=== PATIENT | male | born 1965 | race Caucasian/White ===

== ENCOUNTER 2020-08-31 07:25 | Outpatient (REF) | payer BC, SELFPAY ==
[2020-08-31 08:21] LABS: MANUAL DIFF FLAG NO
[2020-08-31 08:31] LABS: Basophils Percent Auto 0.4 % (0-2); Eosinophils Absolute Auto 0.3 X10*3/uL (0.0-0.4); Eosinophils Percent Auto 4.9 % (0-4); Hematocrit 47.1 % (42-52); Hemoglobin 15.7 g/dl (14.0-18.0); Imm Gran Abs Auto 0.04 X10*3/uL (0.00-0.03); Imm Gran Pct Auto 0.6 % (0.0-0.4); Lymphocytes Absolute Auto 1.7 X10*3/uL (1.2-4.9); Lymphocytes Percent Auto 24.9 % (20-40); Mean Corpuscular HGB Conc 33.3 g/dl (31.0-36.0); Mean Corpuscular Hemoglobin 28.2 pg (27.0-33.0); Mean Corpuscular Volume 84.7 fL (80-98); Mean Platelet Volume 8.7 fL (9.4-12.4); Monocytes Absolute Auto 0.6 X10*3/uL (0.1-1.2); Neutrophils Absolute Auto 4.2 X10*3/uL (2.0-8.3); Neutrophils Percent Auto 60.2 % (45-73); Platelet Count 286 X10*3/uL (160-400); Red Blood Count 5.56 X10*6/uL (4.60-5.80); Red Cell Distribution Width 12.4 % (11.0-16.0)
[2020-08-31 08:41] LABS: Glucose Urine UA NEG (NEG); Leukocyte Esterase Urine NEG (NEG); Nitrite Urine NEG (NEG); PH 5.5 (5.0-8.0); Specific Gravity - Urine 1.025 (1.005-1.025); Urine Blood TRACE (NEG); Urine Ketones NEG (NEG); Urine Protein NEG (NEG-TRACE)
[2020-08-31 08:45] LABS: Appearance Urine CLEAR; Color Urine YELLOW
[2020-08-31 08:53] LABS: RBC Urine 0-2 /HPF (0); WBC Urine 0 /HPF (0-4)
[2020-08-31 08:54] LABS: Mucus Urine TRACE /LPF; Squamous Epithelial Cell Urine TRACE /LPF
[2020-08-31 09:06] LABS: Alanine Aminotransferase 26 U/L (0-40); Alkaline Phosphatase 56 U/L (39-117); Anion Gap 11 (12-20); Aspartate Amino Transferase 17 U/L (5-37); Bilirubin Total 0.7 mg/dL (0.0-1.0); Blood Urea Nitrogen 17 mg/dL (9-16); Calcium 8.6 mg/dL (8.4-10.2); Carbon Dioxide 29 mmol/L (22-29); Chloride 103 mmol/L (96-108); Cholesterol 169 mg/dL; Estimated Glomerular Filt Rate > 60; Glucose Fasting 106 mg/dL (60-99); HDL Cholesterol 39 mg/dL; LDL Cholesterol Calculated 108 mg/dl; Potassium 4.7 mmol/L (3.3-5.1); Sodium 138 mmol/L (135-145); Total Protein 6.8 g/dL (6.5-8.0); Triglycerides 114 mg/dL
[2020-08-31 09:42] LABS: Prostate Specific Antigen Scr 1.69 ng/mL (<0.05-4.0)
== END 2020-08-31 07:26 | disposition home or self-care (01) ==
LOC: HO.LAB 07:25
PROVIDERS: PCP Internal Medicine; Visit Provider Internal Medicine
DX: Z00.00 Encounter for general adult medical examination without abnormal findings (principal); I10 Essential (primary) hypertension; E78.6 Lipoprotein deficiency
CPT/HCPCS: 36415; 80053; 80061; 81001; 84153; 85025

== ENCOUNTER 2021-09-01 11:29 | Outpatient (REF) | payer BC, SELFPAY ==
[2021-09-01 11:32] LABS: MANUAL DIFF FLAG NO
[2021-09-01 11:55] LABS: Basophils Percent Auto 0.5 % (0-2); Eosinophils Absolute Auto 0.4 X10*3/uL (0.0-0.4); Eosinophils Percent Auto 4.6 % (0-4); Hematocrit 46.9 % (42.0-52.0); Hemoglobin 15.6 g/dl (14.0-18.0); Imm Gran Abs Auto 0.03 X10*3/uL (0.00-0.03); Imm Gran Pct Auto 0.4 % (0.0-0.4); Lymphocytes Absolute Auto 1.9 X10*3/uL (1.2-4.9); Lymphocytes Percent Auto 25.1 % (20-40); Mean Corpuscular HGB Conc 33.3 g/dl (31.0-36.0); Mean Corpuscular Volume 84.2 fL (80.0-98.0); Mean Platelet Volume 9.2 fL (9.4-12.4); Monocytes Absolute Auto 0.6 X10*3/uL (0.1-1.2); Monocytes Percent Auto 7.9 % (2-11); Neutrophils Absolute Auto 4.7 x10*3/uL (2.0-8.3); Neutrophils Percent Auto 61.5 % (45-73); Platelet Count 279 X10*3/uL (160-400); Red Blood Count 5.57 X10*6/uL (4.60-5.80); Red Cell Distribution Width 12.6 % (11.0-16.0); White Blood Count 7.7 X10*3/uL (4.8-10.8)
[2021-09-01 11:56] LABS: Appearance Urine CLEAR; Color Urine YELLOW; Glucose Urine UA NEG (NEG); Leukocyte Esterase Urine NEG (NEG); Nitrite Urine NEG (NEG); Specific Gravity - Urine 1.025 (1.005-1.025); Urine Blood TRACE (NEG); Urine Ketones NEG (NEG); Urine Protein NEG (NEG-TRACE)
[2021-09-01 12:06] LABS: Alanine Aminotransferase 37 U/L (0-40); Albumin Level 4.1 g/dL (3.5-5.0); Alkaline Phosphatase 55 U/L (39-117); Anion Gap 10 (12-20); Aspartate Amino Transferase 19 U/L (5-37); Bilirubin Total 0.6 mg/dL (0.0-1.0); Blood Urea Nitrogen 17 mg/dL (9-16); Calcium 9.2 mg/dL (8.4-10.2); Carbon Dioxide 31 mmol/L (22-29); Chloride 103 mmol/L (96-108); Cholesterol 179 mg/dL; Estimated Glomerular Filt Rate > 60; Glucose Fasting 110 mg/dL (60-99); HDL Cholesterol 34 mg/dL; LDL Cholesterol Calculated 114 mg/dl; Potassium 4.3 mmol/L (3.3-5.1); Sodium 140 mmol/L (135-145); Total Protein 6.9 g/dL (6.5-8.0); Triglycerides 158 mg/dL
[2021-09-01 12:27] LABS: RBC Urine 0-2 /HPF (0); WBC Urine 0 /HPF (0-4)
[2021-09-01 12:57] LABS: PSA,Total (Free>4and<10) 1.97 ng/mL (0.00-4.00)
== END 2021-09-01 11:30 | disposition home or self-care (01) ==
LOC: HO.LNP 11:29
PROVIDERS: PCP Internal Medicine; Visit Provider Internal Medicine
DX: Z00.00 Encounter for general adult medical examination without abnormal findings (principal); Z12.5 Encounter for screening for malignant neoplasm of prostate; E78.6 Lipoprotein deficiency; I10 Essential (primary) hypertension
CPT/HCPCS: 80053; 80061; 81001; 81003; 84153; 85025

== ENCOUNTER 2022-02-24 09:24 | Day surgery (SDC) | payer BC, SELFPAY ==
[2022-02-20 13:59] VITALS: BMI 38.7
--- NOTE | 2022-02-23 10:49 | HO.ANESPROP2 ---
Documented by User: Reyna Hadley NP 02/23/22 10:50 HPI - Anesthesia Eval Consult details Narrative: 57yo M for Colonoscopy PMFSH Active Problems Active Problems: All Active Problems (Updated 02/20/22 @ 13:58 by Jennifer Hart, DALI) Shingles (Acute) Past Medical History Medical History History of COVID-19 HTN (hypertension) Surgical History Surgical History H/O colonoscopy Hx of umbilical hernia repair Social History Social History Advance Directives: No Advance Directives Information Provided: Yes Meds Allergies Allergy/AdvReac Type Severity Reaction Status Date / Time No Known Allergies Allergy Unverified 04/08/20 14:50 Home Medications Medication Instructions Recorded Confirmed Last Taken Type lisinopril 10 mg tablet 10 mg PO DAILY 05/25/20 02/20/22 Unknown History multivitamin 1 tab PO DAILY 02/20/22 02/20/22 Unknown History Exam Exam Date and Time: February 23, 2022 1049 Height,Weight and Vital Signs: Height 5 ft 7 in Weight 112.037 kg Pertinent Lab Results Pertinent Lab Results: Laboratory Tests 09/01/21 09/01/21 07:25 07:25 WBC 7.7 Hgb 15.6 Hct 46.9 Plt Count 279 Sodium 140 Potassium 4.3 Chloride 103 Carbon Dioxide 31 H BUN 17 H Creatinine 1.04 Assessment and Plan Assessment Anesthesia Assessment: Chart Reviewed Documented by User: Jessi Harding MD 02/24/22 11:05 PMFSH Active Problems Active Problems: All Active Problems (Updated 02/20/22 @ 13:58 by Jennifer Hart RN) Shingles (Acute) Snores but not tested for KALINA Past Medical History Medical History History of COVID-19 HTN (hypertension) Family History Family history of problems with anesthesia: No Surgical History Surgical History H/O colonoscopy Hx of umbilical hernia repair History of Problems with Anesthesia: No Social History Social History Advance Directives: No Advance Directives Information Provided: Yes Meds Allergies Allergy/AdvReac Type Severity Reaction Status Date / Time No Known Allergies Allergy Unverified 04/08/20 14:50 Home Medications Medication Instructions Recorded Confirmed Last Taken Type lisinopril 10 mg tablet 10 mg PO DAILY 05/25/20 02/20/22 Unknown History multivitamin 1 tab PO DAILY 02/20/22 02/20/22 Unknown History Exam Height,Weight and Vital Signs: Height 5 ft 7 in Weight 112.037 kg Vital Signs Temp Pulse Resp BP Pulse Ox O2 Del Method 02/24/22 10:59 98.7 F 69 18 139/88 97 Room Air Airway Mallampati Class: III TM Dist: >3cm Neck ROM: Full (Increased neck circumference) Loose/Missing/Broken Teeth: No (Per patient ) Heart: RRR Lungs: CTAB Assessment and Plan Assessment Anesthesia Assessment: Anesthesia Plan Discussed Final Anesthetic Review Family History of Problems with Anesthesia: No History of Problems with Anesthesia: No NPO: Yes ASA Class: II Final Preanesthetic Review: No Changes in Pt Med Stat, Meds/Allgs Chart Reviewed, Consent Obtained/Reviewed and Anes Risks/Benef Reviewed Patient Risk: Intermediate Procedure Risk: Low Assessment/Block/Sedation in SS: Assess/Block/Sedation-SS Anesthetic Plan Anesthetic Plan: MAC: Disposition: Standard PACU
[2022-02-24 10:54] VITALS: BMI 37.5
[2022-02-24 10:59] VITALS: BP 139/88; PULSE 69; RESP 18; TEMP 37.1; O2SAT 97
[2022-02-24] MEDS: Lactated Ringers 1,000 ML 100 ML IVCONT (10:59)
--- NOTE | 2022-02-24 11:40 | PM.OP ---
Brief Operative Note Date of Service: 02/24/22 Pre-op diagnosis: Screening Post-op diagnosis: other (Diverticulosis) Procedure: Colonoscopy to the cecum and TI Surgeon: Herman Brooke Anesthesia: MAC Was an [place] Department Supervisor used for this Procedure?: No Estimated blood loss (mL): 0 Pathology: none sent Condition: stable Disposition: PACU
[2022-02-24 11:46] VITALS: BP 78/38; PULSE 107; RESP 14; TEMP 37.1; O2SAT 95
[2022-02-24 11:49] VITALS: BP 91/50
[2022-02-24 12:01] VITALS: BP 109/65; PULSE 89; RESP 14; O2SAT 95
[2022-02-24 12:16] VITALS: BP 114/73; PULSE 74; RESP 18; O2SAT 97
[2022-02-24 12:31] VITALS: BP 115/77; PULSE 74; RESP 18; TEMP 36.7; O2SAT 96
--- NOTE | 2022-02-24 23:56 | OP_ITS ---
SURGEON: Herman Brooke MD INDICATIONS: The patient presents for evaluation of personal history of tubular adenoma of the colon, and colorectal cancer screening. Full consent obtained from him for this, including risks of bleeding and perforation. PREOPERATIVE DIAGNOSIS: Personal history of tubular adenoma of the colon and colorectal cancer screening. POSTOPERATIVE DIAGNOSIS: Personal history of tubular adenoma of the colon and colorectal cancer screening, sigmoid diverticulosis, and internal hemorrhoids. PROCEDURE PERFORMED: Colonoscopy to the cecum and terminal ileum. ESTIMATED BLOOD LOSS: COMPLICATIONS: ANESTHESIA: Preop medication used; monitored anesthesia care. ASSISTANTS: SPECIMENS: DESCRIPTION OF PROCEDURE: The patient was placed in the left lateral decubitus position. The digital rectal exam revealed no abnormalities. The Olympus videopediatric colonoscope was entered into the rectum and advanced easily to the cecum. Once in the cecum, I did identify normal-appearing cecal pouch with appendiceal orifice and a normal-appearing ileocecal valve. The terminal ileum was cannulated and appeared normal. The scope was withdrawn back in the colon. The entire cecum and ileocecal valve appeared normal. The scope was slowly withdrawn assessing all mucosal surfaces carefully. Preparation was excellent. I did not visualize any sign of polyps, colitis, or angiodysplasia. There was a mild amount of sigmoid diverticulosis. In the rectum, scope was retroflexed visualizing internal hemorrhoids, but no other pathology. The rectal mucosa appeared normal. The scope was straightened and withdrawn from the patient. He tolerated the procedure well and was returned to recovery area in stable condition. IMPRESSION: 1. Sigmoid diverticulosis 2. Internal hemorrhoids. PLAN: I would recommend a repeat colonoscopy in 5 years for further screening. He will otherwise see me on a p.r.n. basis. MD GURINDER Bobby/BETTYE / [id number] JULIÁN
== END 2022-02-24 13:30 | disposition home or self-care (01) ==
PROVIDERS: PCP Internal Medicine; Visit Provider Internal Medicine
PROC: 0DJD8ZZ Inspection of Lower Intestinal Tract, Via Natural or Artificial Opening Endoscopic (ICD-10-PCS; CPT 45378; principal; 2022-02-24 10:40)
DX: Z12.11 Encounter for screening for malignant neoplasm of colon (principal); Z86.010 Personal history of colon polyps; K57.30 Diverticulosis of large intestine without perforation or abscess without bleeding; K64.8 Other hemorrhoids; I10 Essential (primary) hypertension; Z79.899 Other long term (current) drug therapy; Z86.16 Personal history of COVID-19
CPT/HCPCS: 45378; J2765

== ENCOUNTER 2022-06-08 05:53 | Day surgery (SDC) | payer BC, SELFPAY ==
[2022-06-01 10:36] VITALS: BMI 39.6
--- NOTE | 2022-06-07 11:56 | HO.ANESPROP2 ---
Documented by User: Reyna Hadley NP 06/07/22 11:56 HPI - Anesthesia Eval Consult details Narrative: 57yo M for Excision Lipoma of back X2 PMFSH Active Problems Active Problems: All Active Problems (Updated 03/31/22 @ 15:01 by Rick Miller MD) Shingles (Acute) Lipoma of back (Acute) HTN (hypertension) (Acute) Past Medical History Medical History (Updated 03/31/22 @ 15:01 by Rick Miller MD) History of COVID-19 HTN (hypertension) Family History Family history of problems with anesthesia: No Surgical History Surgical History (Updated 06/01/22 @ 09:07 by Jennifer Hart RN) H/O colonoscopy Hx of umbilical hernia repair History of Problems with Anesthesia: No Social History Social History Patient Tobacco Use Status: Never used Tobacco Use of substances other than those prescribed or required for medical reasons: No Are you DNR?: No Advance Directives: No Advance Directives Information Provided: Yes (brochure mailed) Advance Directives on File: No Meds Allergies Allergy/AdvReac Type Severity Reaction Status Date / Time No Known Allergies Allergy Unverified 03/31/22 14:35 Home Medications Medication Instructions Recorded Confirmed Last Taken Type lisinopril 10 mg tablet 10 mg PO DAILY 05/25/20 06/01/22 02/24/22 06:00 History multivitamin 1 tab PO DAILY 02/20/22 06/01/22 Unknown History Exam Exam Date and Time: June 07, 2022 1156 Height,Weight and Vital Signs: Height 5 ft 7 in Weight 114.759 kg Assessment and Plan Assessment Anesthesia Assessment: Chart Reviewed Final Anesthetic Review Family History of Problems with Anesthesia: No History of Problems with Anesthesia: No Documented by User: Xavi Malin MD 06/08/22 07:21 PMFSH Past Medical History Medical History (Updated 03/31/22 @ 15:01 by Rick Miller MD) History of COVID-19 HTN (hypertension) Family History Family history of problems with anesthesia: No Surgical History Surgical History (Updated 06/01/22 @ 09:07 by Jennifer Hart RN) H/O colonoscopy Hx of umbilical hernia repair History of Problems with Anesthesia: No Social History Social History Patient Tobacco Use Status: Never used Tobacco Use of substances other than those prescribed or required for medical reasons: No Are you DNR?: No Advance Directives: No Advance Directives Information Provided: Yes (brochure mailed) Advance Directives on File: No Meds Allergies Allergy/AdvReac Type Severity Reaction Status Date / Time No Known Allergies Allergy Unverified 03/31/22 14:35 Home Medications Medication Instructions Recorded Confirmed Last Taken Type lisinopril 10 mg tablet 10 mg PO DAILY 05/25/20 06/01/22 02/24/22 06:00 History multivitamin 1 tab PO DAILY 02/20/22 06/01/22 Unknown History Exam Airway Mallampati Class: III TM Dist: >3cm Neck ROM: Full Loose/Missing/Broken Teeth: No Heart: ok Lungs: ok Assessment and Plan Final Anesthetic Review Family History of Problems with Anesthesia: No History of Problems with Anesthesia: No NPO: Yes ASA Class: II Final Preanesthetic Review: No Changes in Pt Med Stat, Meds/Allgs Chart Reviewed, Consent Obtained/Reviewed and Anes Risks/Benef Reviewed Patient Risk: Intermediate Procedure Risk: Intermediate Anesthetic Plan Anesthetic Plan: GA and Agree w/ Assess. and Plan Disposition: Standard PACU
[2022-06-08 06:12] VITALS: BP 143/80; PULSE 80; RESP 18; TEMP 36.6; O2SAT 98; BMI 37.5
[2022-06-08] MEDS: Lactated Ringers 1,000 ML 100 ML IVCONT (06:34)
--- NOTE | 2022-06-08 07:24 | MHC.SHP ---
Pre-Procedural Eval Section A Date of Service: 06/08/22 The patient is an INPATIENT: No The History & Physical has been completed within 30 days and I have reviewed it.: No Section B Chief Complaint: lipoma Details of Present Illness: Was seen just over a month ago in the office with symmetric lipoma in the trapezius region that are symptomatic when exerting himself. He is interested in excision. He denies interval change including health conditions and medications. Relevant Family History (Specify if Yes): No Relevant Social History: None Present Medications: see Short Stay Collaborative assessment Medical History: No relevant PMH History of Previous Operations: No relevant previous surgery Allergies: Allergies Allergy/AdvReac Type Severity Reaction Status Date / Time No Known Allergies Allergy Unverified 03/31/22 14:35 Review of Systems Sugical H&P ROS: Negative: Constitution, Cardiovascular, Respiratory, Neurological, Psychiatric, Hem-Onc, Allergic/Immunologic, Gastrointestinal, Genitourinary, Musculoskeletal, Integumentary, Endocrine and Eyes/Ears/Nose/Throat Exam Surgical H&P Exam: Normal: HEENT, Normal: Heart, Normal: Lungs, Normal: Extremities, Normal: Abdomen and Normal: Neurological and Not Evaluated: Skin (Two symmetric lipoma in the trapezius area) Plan Diagnosis/Plan: Unchanged I have reviewed the history and physical and performed a pertinent physical examination on my patient. No changes have occurred unless specified. Risks including bleeding, infection, scar formation, activity restrictions were all discussed with the patient and consent obtained. His questions seemed to be satisfactorily answered
--- NOTE | 2022-06-08 07:29 | W.PM.OPN ---
Operative Note Operative Note Date of Service: 06/08/22 Narrative: Preop diagnosis: [Symptomatic lipoma x2, upper back, 5 x 6 cm] Postop diagnosis: [Same: Left intramuscular lipoma in the trapezius measuring 4 x 5 cm; right superficial lipoma measuring 5 x 5 cm] Procedure: [Excision of lipoma with intermediate closure of 6 cm incision on the patient's left; intermediate closure of 6 cm incision on the patient's right] Surgeon: Rick Miller MD Assist: [none] Anesthesia: [MAC; Lidocaine, 1% / Ropivicaine, 0.5% with epi] Estimated blood loss: [3cc] Specimen: [2 lipomas] Intraoperative findings: [The left lipoma was intramuscular in the trapezius; the right lipoma was subcutaneous.] Indications: [The patient is a 57-year-old gentleman with 2 lipoma on his back that are becoming more symptomatic with exercise and sleep, consequently we discussed removal with the inherent risks of bleeding, infection, seroma formation, recurrence and wound complications. I also reviewed activity restrictions and recommendations to minimize postoperative complications. The patient seemed understand his options including continued observation and wanted to proceed.] Procedure: [The patient was identified in the preoperative holding area by myself and the operative sites marked and confirmed with the patient. 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 Is brought into or room 3 and placed prone on the table with MAC administered with excellent effect. His back was then widely prepped and draped using chlorhexidine. An appropriate time-out was performed confirming excision of both a left upper back and right upper back lipoma. Local was infiltrated into the skin and subcutaneous tissues with excellent effect. I began on the patient's left side and after making a 6 cm incision and dissected down through subcutaneous fat and was not able to demonstrate a lipoma. Given this, the trapezius fascia was opened and a very obvious large lipoma circumferentially dissected and removed from the muscle. It was sent for permanent section and the operative field was inspected for hemostasis. The muscle was approximated for hemostasis reasons and to close the defect then the overlying fascia was closed with 2-0 Polysorb sutures. Intermediate closure using interrupted 3-0 Polysorb was performed and the skin closed with 4-0 Monocryl subcuticular sutures. Dissection was then addressed to the patient's right upper back. After confirming continued affect of local anesthetic, a 6 cm incision was made sharply in and getting into the subcutaneous tissues, a large lipomatous mass was encountered and circumferentially dissected. Given the lack of symmetry regarding the patient's left sub fascial lipoma and this 1 being superficial, I open the fascia to be sure there was not a deep lipoma and did not encounter 1. Given this, the fascia was closed and an intermediate closure using 2 0 Polysorb on the deeper subcutaneous tissues and deep dermal layer and 4-0 Monocryl subcuticular was used to close the incision. The area was then washed and dried, Mastisol, Steri-Strips and dressings applied. Patient tolerated the procedure well and was sent to the recovery in stable condition. All sponge instrument counts were correct x2. At the patient's request I called his [id number], Melina, at [phone] and advised her of the operation, activity restrictions, incision care and pain management. Her questions seemed to be satisfactorily answered.]
[2022-06-08 08:57] VITALS: BP 96/54; PULSE 92; RESP 18; TEMP 36.8; O2SAT 92
[2022-06-08 09:12] VITALS: BP 99/60; PULSE 80; RESP 18; TEMP 36.3; O2SAT 96
[2022-06-08 09:23] VITALS: BP 109/73; PULSE 80; RESP 18; TEMP 36.3; O2SAT 96
== END 2022-06-08 09:45 | disposition home or self-care (01) ==
LOC: HO.SSS 05:54
PROVIDERS: PCP Internal Medicine; Visit Provider Surgery
PROC: (CPT 21932; principal; 2022-06-08 07:30)
DX: D17.1 Benign lipomatous neoplasm of skin and subcutaneous tissue of trunk (principal); I10 Essential (primary) hypertension; Z79.899 Other long term (current) drug therapy; Z86.16 Personal history of COVID-19
CPT/HCPCS: 21932; 21931; 88304; J0690; J2250; J2795; J3010

== ENCOUNTER 2022-09-05 11:27 | Outpatient (REF) | payer BC, SELFPAY ==
[2022-09-05 11:30] LABS: MANUAL DIFF FLAG NO
[2022-09-05 11:54] LABS: Appearance Urine Clear; Basophils Percent Auto 0.5 % (0-2); Color Urine Yellow; Eosinophils Absolute Auto 0.4 X10*3/uL (0.0-0.4); Eosinophils Percent Auto 4.2 % (0-4); Glucose Urine UA Negative (Negative); Hematocrit 46.9 % (42.0-52.0); Hemoglobin 15.8 g/dl (14.0-18.0); Imm Gran Abs Auto 0.03 X10*3/uL (0.00-0.03); Imm Gran Pct Auto 0.4 % (0.0-0.4); Leukocyte Esterase Urine Negative (Negative); Lymphocytes Absolute Auto 2.3 X10*3/uL (1.2-4.9); Lymphocytes Percent Auto 27.3 % (20-40); Mean Corpuscular HGB Conc 33.7 g/dl (31.0-36.0); Mean Corpuscular Hemoglobin 28.3 pg (27.0-33.0); Mean Corpuscular Volume 83.9 fL (80.0-98.0); Mean Platelet Volume 9.1 fL (9.4-12.4); Monocytes Absolute Auto 0.7 X10*3/uL (0.1-1.2); Monocytes Percent Auto 8.5 % (2-11); Neutrophils Percent Auto 59.1 % (45-73); Nitrite Urine Negative (Negative); PH 5.5 (5.0-9.0); Platelet Count 327 X10*3/uL (160-400); Red Blood Count 5.59 X10*6/uL (4.60-5.80); Red Cell Distribution Width 12.7 % (11.0-16.0); Urine Blood Negative (Negative); Urine Ketones Negative (Negative); Urine Protein Negative (Neg-Trace); White Blood Count 8.4 X10*3/uL (4.8-10.8)
[2022-09-05 11:57] LABS: Bacteria Urine None Seen (None Seen); Hyaline Casts Urine 0-2 /LPF (0-2); RBC Urine 0-2 /HPF (0-2); Squamous Epithelial Cell Urine 0-2 /HPF (0-2); WBC Urine 0-5 /HPF (0-5)
[2022-09-05 12:50] LABS: Alanine Aminotransferase 41 U/L (0-40); Albumin Level 3.9 g/dL (3.5-5.0); Alkaline Phosphatase 55 U/L (39-117); Anion Gap 14 (12-20); Aspartate Amino Transferase 23 U/L (5-37); Bilirubin Total 0.7 mg/dL (0.0-1.0); Blood Urea Nitrogen 18 mg/dL (9-16); Calcium 8.9 mg/dL (8.4-10.2); Carbon Dioxide 28 mmol/L (22-29); Chloride 101 mmol/L (96-108); Cholesterol 185 mg/dL; Estimated Glomerular Filt Rate > 60; Glucose Fasting 127 mg/dL (60-99); HDL Cholesterol 35 mg/dL; LDL Cholesterol Calculated 115 mg/dl; Potassium 4.3 mmol/L (3.3-5.1); Sodium 139 mmol/L (135-145); Total Protein 6.4 g/dL (6.5-8.0); Triglycerides 177 mg/dL
[2022-09-05 13:08] LABS: PSA,Total (Free>4and<10) 2.01 ng/mL (0.00-4.00)
== END 2022-09-05 11:28 | disposition home or self-care (01) ==
LOC: HO.LNP 11:27
PROVIDERS: Visit Provider Internal Medicine
DX: Z00.00 Encounter for general adult medical examination without abnormal findings (principal); Z12.5 Encounter for screening for malignant neoplasm of prostate; I10 Essential (primary) hypertension; E78.6 Lipoprotein deficiency
CPT/HCPCS: 80053; 80061; 81001; 84153; 85025

== ENCOUNTER 2023-02-13 08:22 | Outpatient (AMB) | payer BC, SELFPAY ==
[2023-02-13 08:32] VITALS: BP 136/92; PULSE 80; BMI 38.5
--- NOTE | 2023-02-13 08:32 | A.OFFVIS_ITS ---
Intake Vital Signs 02/13/23 08:32 Height 5 ft 7 in Weight 246 lb BMI 38.5 BP 136/92 H Blood Pressure Location Lt brachial Position Sitting Pulse 80 Intake Visit Reasons: ? recurrent lipoma, pain Intake Note: Patient reports having hernia surgery about 15-20 yrs ago. C/o discomfort, scratchy feeling when moves abdomen side to side. Thinks mesh was recalled. Reports excision on back healed well. Call Center Specialist Required: No Musical Instrument Maker: Musical Instrument Maker offered & declined Accompanied by: Self / Same As Patient Allergies No Known Allergies Allergy (Verified 02/13/23 08:35) Medication List - Last Reconciled 02/13/23 by Rick Miller MD lisinopril 10 mg PO DAILY multivitamin 1 tab PO DAILY HPI HPI Comments History of Present Illness Details The patient is a 58-year-old gentleman known to me from prior lipoma excisions who made an appointment to come in and discuss abdominal pain and a prior umbilical hernia repair done [place] [address] Vazquez. Ventralex, small mesh was secured in place with #1. Novafil sutures according to the operative report. The patient noted that several months later, the patient had some bleeding and a Dr. Graham performed an office procedure to excise sutures or mesh. I do not have access to this record. Patient notes that his weight has fluctuated significantly since this operation and there has been at least a weight gain of 30 lb. He notes that it may have been higher at his heaviest weight in as much as 60 lb. He notes intermittent pain it is umbilicus that is worse with twisting his torso or reaching. He denies the pain waking him up in the middle of the night and it is not necessarily worse with exertion. It does impact on his daily activities and he is concerned, so he made an appointment to be evaluated. [facility] Medical History History of COVID-19 HTN (hypertension) Surgical History (Updated 02/13/23 @ 09:28 by Rick Miller MD) H/O colonoscopy Hx of umbilical hernia repair Social History Alcohol intake: never Patient Tobacco Use Status: Never used Tobacco Review of Systems Const All systems reviewed & are unremarkable except as noted in HPI and below Reports as per HPI Physical Exam Vital Signs: Last Vital Signs Pulse 80 02/13/23 08:32 BP 136/92 H 02/13/23 08:32 BMI result Body Mass Index 38.5 On exam he is nontoxic He is in good spirits He is in no acute respiratory distress His abdomen is overweight with a diastasis recti. I examined the patient both supine and standing and there is no palpable tenderness. The umbilicus has typical distorted configuration after a mesh repair but on Valsalva, I do not appreciate a recurrence and I do not appreciate a local palpable trigger point. Abdomen is otherwise soft with no rebound, rigidity or guarding. Results Reviewed Results Reviewed: I have ordered a CT of the abdomen and pelvis with Valsalva and IV contrast Renal abscess were ordered today, nonfasting Assessment & Plan Assessment & Plan (1) Abdominal pain: Code(s): R10.9 - Unspecified abdominal pain (2) HTN (hypertension): Code(s): I10 - Essential (primary) hypertension (3) Hx of umbilical hernia repair: Comment: X2 (2010) Code(s): Z98.890 - Other specified postprocedural states; Z87.19 - Personal history of other diseases of the digestive system Plan It sounds like the patient is having some pains that could be contributed to by weight gain in the setting of a mesh repair. He is actively participating in a weight loss program at this point and notes that he has lost a significant a mount of weight. He is encouraged to continue to do so. We discussed options to evaluate his symptoms which include continued observation with weight loss and reassessment in the office in 2-3 months; the other option would be a CT with IV contrast to assess his anatomy and see whether not there is a not called recurrence or obvious distortion to explain his symptoms. The inherent risk of hernia recurrence in the setting of weight gain was reviewed with the patient apparently understood. I will see the patient back for 30 minute visit following the CT of the abdomen pelvis with Valsalva and IV contrast. He will contact me before then if he is clinically worsening. Orders: Orders Basic Metabolic Panel Today I10 - Essential (primary) hypertension, R10.9 - Unspecified abdominal pain CT abdomen pelvis w IV con Today R10.9 - Unspecified abdominal pain Coding Level of Care Code Est Pt Level 4 (10411) Diagnoses Abdominal pain R10.9 HTN (hypertension) I10 Hx of umbilical hernia repair Z98.890; Z87.19
== END 2023-02-13 09:01 | disposition home or self-care (01) ==
PROVIDERS: PCP Internal Medicine; Visit Provider Surgery
DX: R10.9 Unspecified abdominal pain (principal); I10 Essential (primary) hypertension; Z98.890 Other specified postprocedural states; Z87.19 Personal history of other diseases of the digestive system
CPT/HCPCS: 99214

== ENCOUNTER 2023-02-13 08:22 | Outpatient (REF) | payer BC, SELFPAY ==
[2023-02-13 10:54] LABS: Anion Gap 9 (12-20); Blood Urea Nitrogen 18 mg/dL (9-16); Calcium 9.3 mg/dL (8.4-10.2); Carbon Dioxide 29 mmol/L (22-29); Chloride 104 mmol/L (96-108); Estimated Glomerular Filt Rate > 60; Glucose Random 110 mg/dL (60-115); Potassium 4.1 mmol/L (3.3-5.1); Sodium 138 mmol/L (135-145)
== END 2023-02-13 08:23 | disposition home or self-care (01) ==
LOC: HO.LAB 08:22
PROVIDERS: PCP Internal Medicine; Visit Provider Surgery
DX: R10.9 Unspecified abdominal pain (principal); I10 Essential (primary) hypertension; Z79.899 Other long term (current) drug therapy; Z98.890 Other specified postprocedural states; Z87.19 Personal history of other diseases of the digestive system
CPT/HCPCS: 36415; 80048

== ENCOUNTER 2023-09-06 07:18 | Outpatient (REF) | payer BC, SELFPAY ==
[2023-09-06 07:37] LABS: MANUAL DIFF FLAG NO
[2023-09-06 07:57] LABS: Basophils Percent Auto 0.5 % (0-2); Eosinophils Absolute Auto 0.3 X10*3/uL (0.0-0.4); Eosinophils Percent Auto 3.6 % (0-4); Hematocrit 46.3 % (42.0-52.0); Hemoglobin 15.7 g/dl (14.0-18.0); Imm Gran Abs Auto 0.03 X10*3/uL (0.00-0.03); Imm Gran Pct Auto 0.4 % (0.0-0.4); Lymphocytes Absolute Auto 1.5 X10*3/uL (1.2-4.9); Lymphocytes Percent Auto 19.4 % (20-40); Mean Corpuscular HGB Conc 33.9 g/dl (31.0-36.0); Mean Corpuscular Hemoglobin 27.9 pg (27.0-33.0); Mean Corpuscular Volume 82.2 fL (80.0-98.0); Mean Platelet Volume 8.8 fL (9.4-12.4); Monocytes Absolute Auto 0.7 X10*3/uL (0.1-1.2); Monocytes Percent Auto 8.6 % (2-11); Neutrophils Absolute Auto 5.1 x10*3/uL (2.0-8.3); Neutrophils Percent Auto 67.5 % (45-73); Platelet Count 292 X10*3/uL (160-400); Red Blood Count 5.63 X10*6/uL (4.60-5.80); Red Cell Distribution Width 12.7 % (11.0-16.0); White Blood Count 7.6 X10*3/uL (4.8-10.8)
[2023-09-06 08:20] LABS: Alanine Aminotransferase 34 U/L (0-40); Alkaline Phosphatase 53 U/L (39-117); Anion Gap 11 (12-20); Aspartate Amino Transferase 20 U/L (5-37); Bilirubin Total 0.9 mg/dL (0.0-1.0); Blood Urea Nitrogen 14 mg/dL (9-16); Calcium 9.1 mg/dL (8.4-10.2); Carbon Dioxide 27 mmol/L (22-29); Chloride 104 mmol/L (96-108); Cholesterol 176 mg/dL (<200); Estimated Glomerular Filt Rate > 60; Glucose Fasting 116 mg/dL (60-99); HDL Cholesterol 30 mg/dL (>40); LDL Cholesterol Calculated 110 mg/dL (<100); Potassium 4.2 mmol/L (3.3-5.1); Sodium 138 mmol/L (135-145); Total Protein 6.8 g/dL (6.5-8.0); Triglycerides 183 mg/dL (<150)
[2023-09-06 08:30] LABS: PSA,Total (Free>4and<10) 1.79 ng/mL (0.00-4.00)
[2023-09-06 08:31] LABS: Appearance Urine Clear; Color Urine Yellow; Glucose Urine UA Negative (Negative); Leukocyte Esterase Urine Negative (Negative); Nitrite Urine Negative (Negative); Urine Blood Negative (Negative); Urine Ketones Negative (Negative); Urine Protein Negative (Neg-Trace)
[2023-09-06 08:38] LABS: Bacteria Urine None Seen (None Seen); Hyaline Casts Urine 0-2 /LPF (0-2); RBC Urine 0-2 /HPF (0-2); Squamous Epithelial Cell Urine 0-2 /HPF (0-2); WBC Urine 0-5 /HPF (0-5)
== END 2023-09-06 07:19 | disposition home or self-care (01) ==
LOC: HO.LAB 07:18
PROVIDERS: PCP Internal Medicine; Visit Provider Internal Medicine
DX: Z00.00 Encounter for general adult medical examination without abnormal findings (principal); Z12.5 Encounter for screening for malignant neoplasm of prostate; E78.5 Hyperlipidemia, unspecified; I10 Essential (primary) hypertension
CPT/HCPCS: 36415; 80053; 80061; 81001; 84153; 85025

== ENCOUNTER 2023-09-21 08:00 | Outpatient (REF) | payer BC, SELFPAY ==
--- NOTE | ~2023-09-21 | CT_ITS ---
EXAMINATION: CT ABDOMEN AND PELVIS WITH CONTRAST CLINICAL INFORMATION: 58-year-old male with abdominal pain COMPARISON: None available. TECHNIQUE: Multidetector volumetric images were obtained from the superior aspect of the liver through the pubic symphysis following administration 85 mL of Omnipaque 350 intravenous contrast. Sagittal and coronal reformatted images were obtained on the technologist's workstation. Oral contrast: No This CT examination was performed using dose optimization techniques as appropriate, variously including the following: *Automated exposure control *Adjustment of mA and/or kV according to patient size (this includes techniques or standardized protocols for targeted exams where dose is matched to indication/reason for exam; i.e. extremities or head) *Use of iterative reconstruction technique DLP: 603 mGy-cm FINDINGS: LUNG BASES: The visualized lung bases are unremarkable. LIVER, GALLBLADDER, AND BILIARY TREE: Liver is of low attenuation due to hepatic steatosis but without intrahepatic masses or ductal dilatation and enlarged. The gallbladder is unremarkable with no evidence of radiopaque gallstones, gallbladder wall thickening, or obvious pericholecystic inflammatory changes. PANCREAS: Unremarkable. SPLEEN: Unremarkable. ADRENAL GLANDS: Unremarkable. KIDNEYS AND URETERS: The kidneys are normal in size, shape, and attenuation. No hydronephrosis, hydroureter, or calculi seen. No perinephric stranding. BLADDER: Unremarkable. GASTROINTESTINAL TRACT: The small and large bowel are unremarkable. The appendix is unremarkable. ABDOMINAL WALL: No significant hernia is appreciated. LYMPH NODES: Normal. VASCULAR: Unremarkable. PELVIC VISCERA: Unremarkable. OSSEOUS STRUCTURES: Unremarkable. CT/CT abdomen pelvis w IV con IMPRESSION: No explanation for abdominal pain. Hepatic steatosis and hepatomegaly. Fleischner guidelines were followed.
[2023-09-21] MEDS: iohexoL 350 MG/ML 100 ML INFUS..BTL 85 ML IV (08:43)
== END 2023-09-21 08:01 | disposition home or self-care (01) ==
LOC: HO.CT 08:00
PROVIDERS: PCP Internal Medicine; Visit Provider Surgery
DX: R10.9 Unspecified abdominal pain (principal)
CPT/HCPCS: 74177; Q9967

== ENCOUNTER 2024-01-01 11:21 | Outpatient (AMB) | payer BC, SELFPAY ==
--- NOTE | 2024-01-01 11:23 | A.OFFVIS_ITS ---
Vital Signs 01/01/24 11:24 Height 5 ft 7 in Weight 256 lb BMI 40.1 BP 135/83 Blood Pressure Location Rt brachial Position Sitting Pulse 78 Intake Visit Reasons: F/u hernia~ Dr. Miller Intake Note: Patient here to f/u hernia. Previously seen by Dr. Miller January 2023. Patient c/o: Two lipomas on mid paraspinal back. Previous exc on back by Dr. Miller 06-08-[address] ABD/ pelvis: 09-21-2023. Operating System Programmer Required: No Accompanied by: Self / Same As Patient Allergies No Known Allergies Allergy (Verified 01/01/24 11:29) HPI Comments Details: Patient is status post open umbilical hernia repair in the distant past. He had been seen by Dr. De La Torre and a CT scan was ordered to rule out recurrence. This was done in July. After wound was no longer with the system. Patient presents here for follow-up. In the meantime, he has tolerating a diet. He . is having regular bowel habits. He has not noticed any bulge or swelling of the area. Chart was reviewed and patient evaluated CT scan is within normal limits demonstrated no evidence of any recurrence of the umbilical hernia. [facility] Medical History History of COVID-19 HTN (hypertension) Surgical History Hx of umbilical hernia repair H/O colonoscopy Social History Alcohol intake: never Patient Tobacco Use Status: Never used Tobacco Physical Exam Vital Signs: Last Vital Signs Pulse 78 01/01/24 11:24 BP 135/83 01/01/24 11:24 BMI result Body Mass Index 40.1 GI Other: Patient was examined both supine and standing with Valsalva. Abdomen mildly corpulent, soft. Umbilical hernia scar well healed. No evidence of any r ecurrence or infection. Assessment & Plan Assessment & Plan (1) Hx of umbilical hernia repair: Comment: X2 (2010) Code(s): Z98.890 - Other specified postprocedural states; Z87.19 - Personal history of other diseases of the digestive system Category: Medical Plan Patient was reassured. At present time, no surgical intervention is warranted. No evidence of any recurrence or infection. All questions answered. Patient will otherwise follow-up p.r.n.. Coding Level of Care Code New Pt Level 4 (34182) Diagnoses Hx of umbilical hernia repair Z98.890; Z87.19
[2024-01-01 11:24] VITALS: BP 135/83; PULSE 78; BMI 40.1
== END 2024-01-01 11:45 | disposition home or self-care (01) ==
PROVIDERS: PCP Internal Medicine; Visit Provider Surgery
DX: Z98.890 Other specified postprocedural states (principal); Z87.19 Personal history of other diseases of the digestive system
CPT/HCPCS: 99212

== ENCOUNTER → 2024-01-01 11:21 | Outpatient (BNVA) | payer BC, SELFPAY | PROVIDERS: PCP Internal Medicine; Visit Provider Surgery ==

== ENCOUNTER 2024-06-16 13:22 | Outpatient (AMB) | payer BC, SELFPAY ==
--- NOTE | 2024-06-16 13:24 | A.OFFVIS_ITS ---
Intake Visit Reasons: Lipoma on back Intake Note: Patient referred by pcp Dr. 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 Hx of excision . Patient c/o: tenderness with touch. Rt back grew back. 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 Had this excised several years ago by another surgeon and now presents here because the mass has recurred. His increasing in size, become more symptomatic. He would like to have it removed. Patient was known to me from the distant past. Chart was reviewed and patient evaluated [facility] Medical History History of COVID-19 HTN (hypertension) Surgical History Hx of umbilical hernia repair H/O colonoscopy Social History Alcohol intake: never Patient Tobacco Use Status: Never used Tobacco Physical Exam Const Other: Patient was very muscular and works out regularly Chest Other: Chest breath sounds bilaterally, HS 1 in 2 GI Other: Abdomen moderately corpulent, soft, benign Back/Spine/Pelvis Other: Right upper back demonstrates an incision from the previous lipoma surgery. He has a large recurrent lipoma measuring roughly 6 x 4 cm in this area. Assessment & Plan Assessment & Plan (1) Lipoma of back: Code(s): D17.1 - Benign lipomatous neoplasm of skin and subcutaneous tissue of trunk Category: Surgical Plan Risks, benefits, and alternatives of recurrent lipoma excision of the right upper back reviewed with the patient and included but not limited to bleeding, infection, recurrence, numbness, pain, scarring, seroma formation, wound dehiscence and the patient wishes to proceed. All questions answered. Arrangements were made for this on a day which is convenient for him. Coding Level of Care Code Est Pt Level 5 (19016) Diagnoses 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
== END 2024-06-16 13:37 | disposition home or self-care (01) ==
PROVIDERS: PCP Internal Medicine; Referring Provider Internal Medicine; Visit Provider Surgery
DX: D17.1 Benign lipomatous neoplasm of skin and subcutaneous tissue of trunk (principal)
CPT/HCPCS: 99214

== ENCOUNTER → 2024-06-16 13:22 | Outpatient (BNVA) | payer BC, SELFPAY | PROVIDERS: PCP Internal Medicine; Referring Provider Internal Medicine; Visit Provider Surgery ==

== ENCOUNTER 2024-07-18 09:03 | Day surgery (SDC) | payer BC, SELFPAY ==
[2024-07-15 08:57] VITALS: BMI 39.7
--- NOTE | 2024-07-17 08:58 | MHC.SHP ---
Pre-Procedural Eval Section A - 24 Hr Update-Section A only Date of Service: 07/18/24 The patient is an INPATIENT: No Changes since office visit: No Cold of Flu in the past 2 weeks, No New Medical Problems, No Changes in Medication and No Patient answered all questions Section B - Complete if H&P > 30 days Chief Complaint: Benign lipomatous neoplasm of skin and subcutaneou Allergies: Allergies Allergy/AdvReac Type Severity Reaction Status Date / Time No Known Allergies Allergy Verified 06/16/24 13:28 Review of Systems Sugical H&P ROS: Negative: Constitution, Cardiovascular, Respiratory, Neurological, Psychiatric, Hem-Onc, Allergic/Immunologic, Gastrointestinal, Genitourinary, Musculoskeletal, Integumentary, Endocrine and Eyes/Ears/Nose/Throat Exam Surgical H&P Exam: Normal: HEENT, Normal: Heart, Normal: Lungs, Normal: Extremities, Normal: Abdomen, Normal: Skin and Normal: Neurological Plan I have reviewed the history and physical and performed a pertinent physical examination on my patient. No changes have occurred unless specified. Time Spent With Patient Time: Total time managing care of this patient today ____ minutes.
--- NOTE | 2024-07-17 09:16 | HO.ANESPROP2 ---
Documented by User: Reyna Hadley NP 07/17/24 09:16 HPI - Anesthesia Eval Consult details Narrative: 59yo M for Left Wide Local Excision Mid Back Giant Lipoma PMFSH Active Problems Active Problems: All Active Problems Lipoma of back (Acute) Pre-procedural examination (Acute) Abdominal pain (Acute) Subcutaneous hematoma (Acute) HTN (hypertension) (Acute) Lipoma of back (Acute) Shingles (Acute) Hx of umbilical hernia repair (Acute) Past Medical History Medical History (Updated 07/15/24 @ 09:00 by Kalie Kirk RN) History of lipoma (05/2022) KALINA (obstructive sleep apnea) History of COVID-19 HTN (hypertension) Family History Family history of problems with anesthesia: No Surgical History Surgical History (Updated 07/18/24 @ 10:12 by Mora Hernandez RN) Hx of LASIK Hx of umbilical hernia repair H/O colonoscopy History of Problems with Anesthesia: No Social History Social History Alcohol intake: never Patient Tobacco Use Status: Never used Tobacco Use of substances other than those prescribed or required for medical reasons: No Are you DNR?: No Advance Directives: No Advance Directives Information Provided: Yes Advance Directives on File: No Recently lost weight without trying: No Nutrition Risks: No Nutritional Risk Poor oral hygiene: No Meds Allergies Allergy/AdvReac Type Severity Reaction Status Date / Time lisinopril AdvReac Cough Verified 07/18/24 10:10 Active Medications: Current Medications Cefazolin Sodium/Dextrose (Ancef) 2 gm in 50 mls @ 100 mls/hr IV PREOP ONE Stop: 07/17/24 09:25 Home Medications ?Medication ?Instructions ?Recorded ?Confirmed ?Last Taken ?Type valsartan 160 mg tablet 160 mg PO DAILY 06/16/24 07/18/24 07/17/24 History Exam Height,Weight and Vital Signs: Height 5 ft 7.5 in Weight 116.573 kg Assessment and Plan Assessment Anesthesia Assessment: Chart Reviewed Final Anesthetic Review Family History of Problems with Anesthesia: No History of Problems with Anesthesia: No Documented by User: Eileen Ricci MD 07/18/24 12:44 PMFSH Past Medical History Medical History (Updated 07/15/24 @ 09:00 by Kalie Kirk, DALI) History of lipoma (05/2022) KALINA (obstructive sleep apnea) History of COVID-19 HTN (hypertension) Surgical History Surgical History (Updated 07/18/24 @ 10:12 by Mora Hernandez, DALI) Hx of LASIK Hx of umbilical hernia repair H/O colonoscopy Social History Social History Alcohol intake: never Patient Tobacco Use Status: Never used Tobacco Use of substances other than those prescribed or required for medical reasons: No Are you DNR?: No Advance Directives: No Advance Directives Information Provided: Yes Advance Directives on File: No Recently lost weight without trying: No Nutrition Risks: No Nutritional Risk Poor oral hygiene: No Meds Allergies Allergy/AdvReac Type Severity Reaction Status Date / Time lisinopril AdvReac Cough Verified 07/18/24 10:10 Home Medications ?Medication ?Instructions ?Recorded ?Confirmed ?Last Taken ?Type valsartan 160 mg tablet 160 mg PO DAILY 06/16/24 07/18/24 07/17/24 History Exam Airway Mallampati Class: III TM Dist: >3cm Neck ROM: Full Assessment and Plan Assessment Anesthesia Assessment: Anesthesia Plan Discussed Final Anesthetic Review NPO: Yes ASA Class: III Final Preanesthetic Review: No Changes in Pt Med Stat, Meds/Allgs Chart Reviewed, Consent Obtained/Reviewed, Anes Risks/Benef Reviewed and DNR Form (If Appl.) Patient Risk: Intermediate Procedure Risk: Low Anesthetic Plan Anesthetic Plan: TIVA Disposition: Standard PACU
--- OUTSIDE RECORDS SUMMARY | 2024-07-18 09:18 | XMS_ITS | Patient Health Record ---
Author Organization Marcos Newman MD Address [address] [place], [place] [id number] Care Team Providers Care Telecommunicator Name Role Phone Marcos Newman Primary Care Provider ALLERGIES No Known Allergies RESULTS Component Value Reference Range Notes Complete Blood Count Auto Di ff Reviewed date:09/07/2023 04:59:24 PM Interpretation: Performing Lab:[facility], [address] [place] [phone] Notes/Report: White Blood Count 7.6 4.8-10.8 X10*3/uL Red Blood Count 5.63 4.60-5.80 X10*6/uL Hemoglobin 15.7 14.0-18.0 g/dl Hematocrit 46.3 42.0-52.0 % Mean Corpuscular Volume 82.2 80.0-98.0 fL Mean Corpuscular Hemoglobin 27.9 27.0-33.0 pg Mean Corpuscular HGB Conc 33.9 31.0-36.0 g/dl Red Cell Distribution Width 12.7 11.0-16.0 % Platelet Count 292 160-400 X10*3/uL Mean Platelet Volume 8.8 9.4-12.4 fL Neutrophils Percent Auto 67.5 45-73 % Imm Gran Pct Auto 0.4 0.0-0.4 % Lymphocytes Percent Auto 19.4 20-40 % Monocytes Percent Auto 8.6 2-11 % Eosinophils Percent Auto 3.6 0-4 % Basophils Percent Auto 0.5 0-2 % NRBC Pct Auto 0.0 0.0-0.2 /100WBC Neutrophils Absolute Auto 5.1 2.0-8.3 x10*3/u L Imm Gran Abs Auto 0.03 0.00-0.03 X10*3/uL Lymphocytes Absolute Auto 1.5 1.2-4.9 X10*3/u L Monocytes Absolute Auto 0.7 0.1-1.2 X10*3/uL Eosinophils Absolute Auto 0.3 0.0-0.4 X10*3/u L Basophils Absolute Auto 0.0 0.0-0.2 X10*3/uL NRBC Abs Auto 0.000 0.0-0.012 X10*3/uL Comprehensive [place]. Panel Fa st Reviewed date:09/07/2023 04:59:41 PM Interpretation: Performing Lab:[facility], [address] [place] [phone] Notes/Report: Sodium 138 135-145 mmol/L Potassium 4.2 3.3-5.1 mmol/L Chloride 104 96-108 mmol/L Carbon Dioxide 27 22-29 mmol/L Anion Gap 11 12-20 Blood Urea Nitrogen 14 9-16 mg/dL Creatinine 0.96 0.5-1.4 mg/dL Estimated Glomerular Filt Rate > 60 NOTE: For -[place] individuals, multiply the result by 1.210. Chronic Kidney Disease: Estimated GFR < 60 mL/min/1.73m2 Severe Kidney Disease: Estimated GFR < 15 mL/min/1.73m2 Glucose Fasting 116 60-99 mg/dL A fasting glucose from 100-125 mg/dl is considered impaired (pre-diabetes). Calcium 9.1 8.4-10.2 mg/dL Bilirubin Total 0.9 0.0-1.0 mg/dL Aspartate Amino Transferase 20 5-37 U/L Alanine Aminotransferase 34 0-40 U/L Total Protein 6.8 6.5-8.0 g/dL Albumin Level 4.0 3.5-5.0 g/dL Alkaline Phosphatase 53 39-117 U/L Lipid Panel Reviewed date:09/06/2023 12:34:27 PM Interpretation: Performing Lab:[facility], [address] [place] [phone] Notes/Report: Triglycerides 183 <150 mg/dL Desirable Triglyceride: less than 150 mg/dL Borderline High Triglyceride 150-199 mg/dL High Triglyceride: 200-499 mg/dL Very High Triglyceride: greater than or equal to 5OO mg/dL Cholesterol 176 <200 mg/dL Desirable Cholesterol: less than 200 mg/dL Borderline High Cholesterol: 200-239 mg/dL High Cholesterol: greater than 239 mg/dL LDL Cholesterol Calculated 110 <100 mg/dL Desirable LDL: less than 100 mg/dL Near Optimal/Above Optimal LDL: 110-129 mg/dL Borderline High LDL: 130-159 mg/dL High LDL: 160-189 mg/dL Very High LDL: greater than or equal to 190 mg/dL HDL Cholesterol 30 >40 mg/dL Desirable HDL: greater than 40 mg/dL Note: This HDL assay may give artificially low results in patients with liver disease. PSA,Total (Free>4and<10) Reviewed date:09/06/2023 12:34:16 PM Interpretation: Performing Lab:[address] [phone] Notes/Report: PSA,Total (Free>4and<10) 1.79 0.00-4.00 ng/mL A Free PSA was not performed: The percentage of Free PSA can be used to enhance the differentiation of prostate cancer from benign prostatic disease in subjects whose PSA levels are between 4.0 and 10.0 ng/mL. For subjects whose PSA levels are below 4.0 or above 10.0 ng/mL, the risk of prostate cancer is determined on the basis of the PSA alone. Therefore the % Free PSA is recommended only for those subjects whose PSA levels are between 4.0 and 10.0 ng/mL. PSA methodology: Hawkins Alinity i Chemiluminescent Microparticle Immunoassay (CMIA) UA ClnCatch+Micro w/rflx Cul t Reviewed date:09/06/2023 04:48:11 PM Interpretation: Performing Lab:[address] [phone] Notes/Report: Urine, Clean Catch Color Urine Yellow Appearance Urine Clear PH 6.0 5.0-9.0 Glucose Urine UA Negative Negative mg/dL Urine Blood Negative Negative Specific [place] - Urine 1.020 1.005-1.025 Urine Protein Negative Neg-Trace mg/dL Urine Ketones Negative Negative mg/dL Nitrite Urine Negative Negative Leukocyte Esterase Urine Negative Negative RBC Urine 0-2 0-2 /HPF WBC Urine 0-5 0-5 /HPF Squamous Epithelial Cell Urine 0-2 0-2 /HPF Bacteria Urine None Seen None Seen Hyaline Casts Urine 0-2 0-2 /LPF CT abdomen pelvis w con Reviewed date:09/21/2023 03:55:21 PM Interpretation: Performing Lab: Notes/Report: [address] [address] [address] Scan Report Signed Patient: Beka Bernabe Jr MR#: [id number] : 1965 Acct:[id number] Age/Sex: 58 / M ADM Date: 09/21/23 Loc: HO.CT Attending Dr: Rick Miller MD, FACS, [facility] Ordering Physician: Rick Miller MD, [facility] Date of Service: 09/21/23 Procedure(s): CT abdomen pelvis w IV con Accession Number(s): [id number] cc: Marcos Newman MD; Rick Miller MD, [facility] EXAMINATION: CT ABDOMEN AND PELVIS WITH CONTRAST CLINICAL INFORMATION: 58-year-old male with abdominal pain COMPARISON: None available. TECHNIQUE: Multidetector volumetric images were obtained from the superior aspect of the liver through the pubic symphysis following administration 85 mL of Omnipaque 350 intravenous contrast. Sagittal and coronal reformatted images were obtained on the technologist's workstation. Oral contrast: No This CT examination was performed using dose optimization techniques as appropriate, variously including the following: *Automated exposure control *Adjustment of mA and/or kV according to patient size (this includes techniques or standardized protocols for targeted exams where dose is matched to indication/reason for exam; i.e. extremities or head) *Use of iterative reconstruction technique DLP: 603 mGy-cm FINDINGS: LUNG BASES: The visualized lung bases are unremarkable. LIVER, GALLBLADDER, AND BILIARY TREE: Liver is of low attenuation due to hepatic steatosis but without intrahepatic masses or ductal dilatation and enlarged. The gallbladder is unremarkable with no evidence of radiopaque gallstones, gallbladder wall thickening, or obvious pericholecystic inflammatory changes. PANCREAS: Unremarkable. SPLEEN: Unremarkable. ADRENAL GLANDS: Unremarkable. KIDNEYS AND URETERS: The kidneys are normal in size, shape, and attenuation. No hydronephrosis, hydroureter, or calculi seen. No perinephric stranding. BLADDER: Unremarkable. GASTROINTESTINAL TRACT: The small and large bowel are unremarkable. The appendix is unremarkable. ABDOMINAL WALL: No significant hernia is appreciated. LYMPH NODES: Normal. VASCULAR: Unremarkable. PELVIC VISCERA: Unremarkable. OSSEOUS STRUCTURES: Unremarkable. CT/CT abdomen pelvis w IV con IMPRESSION: No explanation for abdominal pain. Hepatic steatosis and hepatomegaly. Fleischner guidelines were followed. 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 1) Referral Organization Marcos Newman MD Referring Provider First Name Marcos Referring Provider Last Name Trent Referring Provider Speciality Internal edicine Referred Provider Scotty De La Torre Referred Provider Specialty Surgery General Notes Lea Gomez 02:44:02 PM EST > info faxed , eLa Gomez 06/12/2024 03:25:14 PM EST > was told patient is aware of appt Referral Priority Routine Referral Appointment Date 06/16/2024 MEDICATIONS Medication SIG (Take, Route, Fr equency, Duration) Notes Start Date End Date Status Valsartan 160 MG 1 tablet Orally Once a day for 90 days 06/05/2024 Active Indomethacin 50 MG 1 capsule with food Orally Three times a day for 10 days 11/12/2014 No t-Taking IMMUNIZATIONS Vaccine Route Administration Date Status Comme nts Flu Vaccine Unknown 05/12/2012 Administered Flu Vaccine Unknown 04/28/2014 Administered [place] Flu Vaccine Unknown 04/22/2015 Administered [employer] Flu Vaccine Unknown 04/22/2016 Administered Given at wo rk. Fluarix Quadrivalent Unknown 04/28/2017 Administered At work Fluarix Quadrivalent IM Intramuscular 05/14/2018 Adminhiral yates Fluarix Quadrivalent Unknown 04/25/2019 Administered at work TDaP Unknown 06/04/2018 Administered pt was given the vaccine with the . Fluarix Quadrivalent Unknown 06/04/2020 Administered Covid Vaccine Unknown 08/15/2020 Administered MODERNA SARS-COV-2 Moderna Unknown 09/17/2020 Administered Fluarix Quadrivalent IM Intramuscular 04/19/2021 Adminhiral yates SOCIAL HISTORY Tobacco Use: Social History Observation Description Date Details (start date - stop date) Never Smoker NA - NA Sex Assigned At : Social History Observation Description Sex Assigned At Unknown Tobacco Use/Smoking Question Answer Notes Patient is a nonsmoker Additional Findings: Tobacco Non-User Cu rrent non-smoker, currently using no form of tobacco Alcohol Screen Question Answer Notes Did you have a drink containing alcohol in the p ast year? No Points 0 Interpretation Negative PROBLEMS Problem Type ICD Code Onset Dates Problem Status W/U Status Risk SNOMED Code Notes Problem Tubular adenoma (D36.9) Active confirmed 652416368 Problem Body mass index (BMI) 35.0-35.9, adult (Z68.35) Active confirmed 397915750 Problem Essential hypertension (I10) Active confirmed 74740592 Problem Low HDL (under 40) (E78.6) Active confirmed 690507425 Problem Non morbid obesity due to excess calories (E66.09) Active confirmed 579062482 Problem KALINA (obstructive sleep apnea) (G47.33) Active confirmed 89102962 Problem BMI 36.0-36.9,adult (Z68.36) Active confirmed 718580392 VITAL SIGNS Blood pressure diastolic 96 mm Hg 06/05/2024 timur ght is up 14 pounds since 02-09-23 Height 67.5 in 06/05/2024 weight is up 14 pounds since 02-09-23 Blood pressure systolic 144 mm Hg 06/05/2024 weig ht is up 14 pounds since 02-09-23 Weight 257 lbs 06/05/2024 weight is up 14 pounds since 02-09-23 BMI 39.65 kg/m2 06/05/2024 weight is up 14 pounds since 02-09-23 Encounters Encounter Location Date Provider Diagnosis Marcos Newman MD [address] [place] [address] [id number] 09/13/2023 Marcos Newman Prediabetes R73.03 ; Annual physical exam Z00.00 ; Essential hypertension I10 ; Non morbid obesity due to excess calories E66.09 ; Colon cancer screening Z12.11 and Depression screening Z13.31 Marcos Newman MD [address] [place] [id number] 09/06/2023 Marcos Newman Blood tests for routine general physical examination Z00.00 ; Essential hypertension I10 and Low HDL (under 40) E78.6 Marcos Newman MD [address] [place] [address] [id number] 06/05/2024 Marcos Newman Other specified coug h R05.8 ; Adverse effect of angiotensin-convertin g-enzyme inhibitors, initial encounter T46.4X5A ; Essential hypertension I10 ; KALINA (obstructive sleep apnea) G47.33 and 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 ASSESSMENTS Encounter Date Diagnosis Assessment Notes Treatment Notes Treatment Clinical Notes 09/13/2023 Annual physical exam (ICD-10 - Z00.00) labs reviewed and discussed with patient 09/13/2023 Prediabetes (ICD-10 - R73.03) to diet, will continue to monitor, no need for medication at this time 09/06/2023 Blood tests for routine general physical examination (ICD-10 - Z00.00) 06/05/2024 Adverse effect of angiotensin-convert ing-enzyme inhibitors, initial encounter (ICD-10 - T46.4X5A) patient verbalized understanding will stop the jess and start valsartan 06/05/2024 Other specified cough (ICD-10 - R05.8) 09/13/2023 Essential hypertension (ICD-10 - I10) a little on high side, will continue current regiment and will continue to monitor 09/06/2023 Essential hypertension (ICD-10 - I10) 06/05/2024 Essential hypertension (ICD-10 - I10) had not been taking meds for 4 days, patient verbalized understanding of new medication and directions for use 09/13/2023 Non morbid obesity due to excess calories (ICD-10 - E66.09) encouraged diet 09/06/2023 Low HDL (under 40) (ICD-10 - E78.6) 06/05/2024 KALINA (obstructive sleep apnea) (ICD-10 - G47.33) referral to sleep medicine 09/13/2023 Colon cancer screening (ICD-10 - Z12.11) guaiac negative 06/05/2024 Lipoma of back (ICD-10 - D17.1) referral to dr de la torre 09/13/2023 Depression screening (ICD-10 - Z13.31) negative screen PLAN OF TREATMENT Pending Test Test Name Order Date Electrocardiogram (EKG) 02/26/2017 Electrocardiogram (EKG) 08/21/2019 Next Appt Details Provider Name:Marcos Marroquin ier, 09/11/2024 07:00:00 AM, [address] [place] [address], [address], [phone], Provider Name:Marcos Marroquin ier, 09/18/2024 08:00:00 AM, [address] [place] [address], [place] [address], [place], [place], [phone], Insurance Providers Payer Name Payer Address Payer Phone Subscriber Number Group Number Insured Name Patient Relationship to Insured Coverage Start Date Coverage End Date [employer] [facility] [address] [place], [place] [phone] [id number] Beka Bernabe Self - patient is the insured MEDICAL (GENERAL) HISTORY Medical History History ICD Code Colonoscopy 08/30/16 w/Dr. Lyman ss - repeat 5 years Tubular adenoma colonoscopy 03/13. due in 5 years
--- OUTSIDE RECORDS SUMMARY | 2024-07-18 09:18 | XMS_ITS | Continuity of Care Document ---
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 It does not include entries that were removed or entered in error. Problem Status Onset Date Problem Type Date of Resolution Comments Source Encounter for other administrative examinations Inactive 05/10/2020 Condition DoD visit for: administrative purpose Inactive 08/05/2012 Condition DoD visit for: screening exam pulmonary tuberculosis Inactive Condition DoD Immunizations Combined list of available immunizations from the Department of Defense and Veterans Affairs facilities. 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 Oxygen Furnace Status Comments Source influenza, injectable, quadrivalent- pf 2021 [id number] GlaxoSmithKli ne complet ed influenza , injectabl e, quadrival ent-pf 05/06/22 Given Ambulat ory Pharmac y influenza, seasonal, injectable 2020 [id number] 141 GlaxoSmithKli ne complet ed influenza , seasonal, injectabl e 04/19/21 Given Ambulat ory Pharmac y COVID Vaccine Moderna 2020 [id number] complet ed COVID Vaccine Moderna 09/17/20 Given Ambulat ory Pharmac y COVID Vaccine Moderna 2020 [id number] 207 complet ed COVID Vaccine Moderna 08/15/20 Given Ambulat ory Pharmac y influenza, injectable, quadrivalent- pf 2019 [id number] 150 Seqirus complet ed influenza , injectabl e, quadrival ent-pf 06/01/20 Given Ambulat ory Pharmac y poliovirus vaccine, inactivated 2019 [id number] 10 sanofi pasteur complet ed polioviru s vaccine, inactivat ed 09/15/19 Given Ambulat ory Pharmac y typhoid Vi capsular polysaccharid e vac 2019 [id number] sanofi pasteur complet ed typhoid Vi capsular polysacch aride vac 09/15/19 Given Ambulat ory Pharmac y anthrax vaccine 2019 [id number] 24 Emergent [employer] complet ed anthrax vaccine 09/15/19 Given Ambulat ory Pharmac y anthrax vaccine 2019 [id number] 24 [employer] complet ed anthrax vaccine 08/03/19 Given Ambulat ory Pharmac y influenza, injectable, quadrivalent- pf 2018 [id number] 150 Seqirus complet ed influenza , injectabl e, quadrival ent-pf 06/11/19 Given Ambulat ory Pharmac y tuberculin purified protein derivative 2018 [id number] 96 sanofi pasteur complet ed tuberculi n purified protein derivativ e 09/04/18 Given Ambulat ory Pharmac y tetanus, diphtheria, acellular pertu is 2017 [id number] 115 sanofi pasteur complet ed tetanus, diphtheri a, acellular pertussis 06/04/18 Given Ambulat ory Pharmac y tetanus toxoid, reduced diphtheria toxoid, and acellular pertu is vaccine, adsorbed 4 2017 [id number] 115 Sanofi Pasteur ([facility]) complet ed tetanus toxoid, reduced diphtheri a toxoid, and acellular pertussis vaccine, adsorbed DoD influenza, seasonal, injectable 2017 [id number] 141 GlaxoSmithKli ne complet ed influenza , seasonal, injectabl e 05/14/18 Given Ambulat ory Pharmac y Influenza, seasonal, injectable 1 2017 [id number] 141 [facility] (SKB) complet ed Influenza , seasonal, injectabl e DoD influenza, injectable, quadrivalent 2016 [id number] 158 [employer] comple t ed influenza , injectabl e, quadrival ent 05/26/17 Given Ambulat ory Pharmac y influenza, injectable, quadrivalent, contains preservative 0 2016 [id number] 158 (IDB) complet ed influenza , injectabl e, quadrival ent, contains preservat carlitos DoD measles/mumps /rubella virus vaccine 2016 [id number] 03 Merck & Company Inc complet ed measles/m umps/rube lla virus vaccine 08/25/16 Given Ambulat ory Pharmac y measles, mumps and rubella virus vaccine 2 2016 [id number] 03 Merck (MSD) complet ed measles, mumps and rubella virus vaccine DoD measles/mumps /rubella virus vaccine 2016 [id number] 03 Merck & Company Inc complet ed measles/m umps/rube lla virus vaccine 07/28/16 Given Ambulat ory Pharmac y measles, mumps and rubella virus vaccine 1 2016 [id number] 03 Merck (MSD) complet ed measles, mumps and rubella virus vaccine DoD influenza, seasonal, injectable 2015 [id number] 141 Seqirus complet ed influenza , seasonal, injectabl e 05/07/16 Given Ambulat ory Pharmac y Influenza, seasonal, injectable 1 2015 [id number] 141 Seqirus (SEQ) comple t ed Influenza , seasonal, injectabl e DoD influenza, seasonal, injectable-pf 2014 [id number] 140 CSL Behring complet ed influenza , seasonal, injectabl e-pf 04/18/15 Given Ambulat ory Pharmac y Influenza, seasonal, injectable, preservative free 0 2014 [id number] 140 CSL [employer] Inc[employer] (L) complet ed Influenza , seasonal, injectabl e, preservat carlitos free DoD influenza, seasonal, injectable-pf 2013 [id number] 140 CSL Behring complet ed influenza , seasonal, injectabl e-pf 04/12/14 Given Ambulat ory Pharmac y Influenza, seasonal, injectable, preservative free 1 2013 [id number] 140 CS [employer]otherap[employer] Inc. (CSL) complet ed Influenza , seasonal, injectabl e, preservat carlitos free DoD tuberculin purified protein derivative 2013 Body, whole TRANSCR IBED 96 complet ed Patient Tolerance : Negative Ambulat ory Pharmac y tuberculin skin test; purified protein derivative solution, intradermal 0 2013 96 Transcribed (TRS) complet ed tuberculi n skin test; purified protein derivativ e solution, intraderm al DoD Influenza, injectable, MDCK-pf 2012 [id number] 153 Novartis Pharmaceutica ls complet ed Influenza , injectabl e, MDCK-pf 06/08/13 Given Ambulat ory Pharmac y Influenza, injectable, Madin [place] Canine Kidney, preservative free 0 2012 [id number] 153 Novartis Pharmaceutica l Ac. (NOV) complet ed Influenza , injectabl e, Madin [place] Canine Kidney, preservat carlitos free DoD tuberculin purified protein derivative 2012 zzLef t Arm [id number] 96 sanofi pasteur complet ed Patient Tolerance : Negative Ambulat ory Pharmac y tuberculin skin test; purified protein derivative solution, intradermal 0 2012 ERICA FORDE [id number] 96 Sanofi Pasteur ([facility]) complet ed tuberculi n skin test; purified protein derivativ e solution, intraderm al DoD influenza, seasonal, injectable-pf 2011 [id number] 140 CSL Behring complet ed influenza , seasonal, injectabl e-pf 05/18/12 Given Ambulat ory Pharmac y Influenza, seasonal, injectable, preservative free 17 2011 [id number] 140 [employer] (CSL) complet ed Influenza , seasonal, injectabl e, preservat carlitos free DoD influenza virus vaccine, live 2010 [id number] 111 [employer] comple t ed influenza virus vaccine, live 06/11/11 Given Ambulat ory Pharmac y influenza virus vaccine, live, attenuated, for intranasal use 0 2010 [id number] 111 MedIEvirx, Inc. (MED) complet ed influenza virus vaccine, live, attenuate d, for intranasa l use DoD influenza virus vaccine, live 2009 [id number] 111 [employer] comple t ed influenza virus vaccine, live 05/08/10 Given Ambulat ory Pharmac y influenza virus vaccine, live, attenuated, for intranasal use 1 2009 [id number] 111 MedIEvirx, Inc. (MED) complet ed influenza virus vaccine, live, attenuate d, for intranasa l use DoD Novel influenza-H1N 1-09, injectable 2009 [id number] 1 127 Novartis Pharmaceutica complet ed Novel influenza -R8D9-74, injectabl e 08/15/09 Given Ambulat ory Pharmac y Novel influenza-H1N 1-09, injectable 1 2009 [id number] 1 127 Novartis Pharmaceutica l Ac. (NOV) complet ed Novel influenza -K0W4-63, injectabl e DoD influenza virus vaccine, live 2008 [id number] 111 Medimmune Inc comple t ed influenza virus vaccine, live 05/08/09 Given Ambulat ory Pharmac y influenza virus vaccine, live, attenuated, for intranasal use 1 2008 [id number] 111 Technisys, Inc. (MED) complet ed influenza virus vaccine, live, attenuate d, for intranasa l use DoD influenza virus vaccine,split 2007 [id number] 15 GlaxoSmithKli ne complet ed influenza virus vaccine,s plit 06/28/08 Given Ambulat ory Pharmac y influenza virus vaccine, split virus (incl. purified surface antigen)-reti red CODE 1 2007 [id number] 15 [facility] (B) complet ed influenza virus vaccine, split virus (incl. purified surface antigen)- retired CODE [facility] tetanus, diphtheria, acellular pertu is 2007 [id number] 115 sanofi pasteur complet ed tetanus, diphtheri a, acellular pertussis 02/26/08 Given Ambulat ory Pharmac y typhoid Vi capsular polysaccharid e vac 2007 [id number] 101 sanofi pasteur complet ed typhoid Vi capsular polysacch aride vac 02/26/08 Given Ambulat ory Pharmac y typhoid Vi capsular polysaccharid e vaccine 1 2007 [id number] 101 Sanofi Pasteur ([facility]) complet ed typhoid Vi capsular polysacch aride vaccine DoD tetanus toxoid, reduced diphtheria toxoid, and acellular pertu is vaccine, adsorbed 1 2007 [id number] 115 Sanofi Pasteur ([facility]) complet ed tetanus toxoid, reduced diphtheri a toxoid, and acellular pertussis vaccine, adsorbed DoD influenza virus vaccine,split 2007 [id number] 15 GlaxoSmithKli ne complet ed influenza virus vaccine,s plit 10/06/07 Given Ambulat ory Pharmac y influenza virus vaccine, split virus (incl. purified surface antigen)-reti red CODE 1 2007 [id number] 15 [facility] (SKB) complet ed influenza virus vaccine, split virus (incl. purified surface antigen)- retired CODE DoD influenza virus vaccine,split 2005 [id number] 15 Unknown complet ed influenza virus vaccine,s plit 06/23/06 Given Ambulat ory Pharmac y influenza virus vaccine, split virus (incl. purified surface antigen)-reti red CODE 1 2005 [id number] 15 Other (OTH) complet ed influenza virus vaccine, split virus (incl. purified surface antigen)- retired CODE [facility] tetanus-dipht h toxoids (Td) adult/adol 2005 [id number] 09 sanofi pasteur complet ed tetanus-d iphth toxoids (Td) adult/ado l 01/13/06 Given Ambulat ory Pharmac y typhoid vaccine, parenteral 2005 [id number] 41 sanofi pasteur complet ed typhoid vaccine, parentera l 01/13/06 Given Ambulat ory Pharmac y tetanus and diphtheria toxoids, adsorbed, preservative free, for adult use (2 Lf of tetanus toxoid and 2 Lf of diphtheria toxoid) 1 2005 [id number] 09 Sanofi Pasteur ([facility]) complet ed tetanus and diphtheri a toxoids, adsorbed, preservat carlitos free, for adult use (2 Lf of tetanus toxoid and 2 Lf of diphtheri a toxoid) DoD typhoid vaccine, parenteral, other than acetone-kille d, dried 1 2005 [id number] 41 Sanofi Pasteur ([facility]) complet ed typhoid vaccine, parentera l, other than acetone-k illed, dried DoD influenza virus vaccine,split 2004 [id number] 15 sanofi pasteur complet ed influenza virus vaccine,s plit 06/25/05 Given Ambulat ory Pharmac y influenza virus vaccine, split virus (incl. purified surface antigen)-reti red CODE 1 2004 [id number] 15 Sanofi Pasteur ([facility]) complet ed influenza virus vaccine, split virus (incl. purified surface antigen)- retired CODE [facility] hepatitis B vaccine, adult dosage 0 2004 43 () Not Given hepatitis B vaccine, adult dosage DoD varicella virus vaccine 0 2004 21 () Not Given varicella virus vaccine DoD influenza virus vaccine, live 2004 [id number] 111 [employer] comple t ed influenza virus vaccine, live 08/15/04 Given Ambulat ory Pharmac y influenza virus vaccine, live, attenuated, for intranasal use 0 2004 [id number] 111 Technisys, Inc. (MED) complet ed influenza virus vaccine, live, attenuate d, for intranasa l use DoD typhoid vaccine, parenteral 2003 [id number] 41 sanofi pasteur complet ed typhoid vaccine, parentera l 01/06/04 Given Ambulat ory Pharmac y typhoid vaccine, parenteral, other than acetone-kille d, dried 0 2003 [id number] 41 Sanofi Pasteur ([facility]) complet ed typhoid vaccine, parentera l, other than acetone-k illed, dried DoD influenza virus vaccine, whole virus 2003 [id number] 16 sanofi pasteur complet ed influenza virus vaccine, whole virus 09/12/03 Given Ambulat ory Pharmac y influenza virus vaccine, whole virus 0 2003 [id number] 16 Sanofi Pasteur ([facility]) complet ed influenza virus vaccine, whole virus DoD tuberculin purified protein derivative 2002 [id number] 96 sanofi pasteur complet ed tuberculi n purified protein derivativ e 01/10/03 Given Ambulat ory Pharmac y influenza virus vaccine, whole virus 2001 [id number] 16 sanofi pasteur complet ed influenza virus vaccine, whole virus 05/10/02 Given Ambulat ory Pharmac y influenza virus vaccine, whole virus 0 2001 [id number] 16 Sanofi Pasteur ([facility]) complet ed influenza virus vaccine, whole virus DoD meningococcal polysaccharid e (MPSV4) 2001 [id number] 32 sanofi pasteur complet ed meningoco ccal polysacch aride (MPSV4) 12/25/01 Given Ambulat ory Pharmac y tuberculin purified protein derivative 2001 [id number] 96 sanofi pasteur complet ed tuberculi n purified protein derivativ e 12/25/01 Given Ambulat ory Pharmac y meningococcal polysaccharid e vaccine (MPSV4) 0 2001 [id number] 32 Sanofi Pasteur ([facility]) complet ed meningoco ccal polysacch aride vaccine (MPSV4) DoD influenza virus vaccine, whole virus 2000 [id number] 16 sanofi pasteur complet ed influenza virus vaccine, whole virus 06/08/01 Given Ambulat ory Pharmac y influenza virus vaccine, whole virus 0 2000 [id number] 16 Sanofi Pasteur ([facility]) complet ed influenza virus vaccine, whole virus DoD tuberculin purified protein derivative 2000 96 complet ed tuberculi n purified protein derivativ e 08/11/00 Given Ambulat ory Pharmac y influenza virus vaccine, whole virus 2000 [id number] 16 [facility] complet ed influenza virus vaccine, whole virus 08/11/00 Given Ambulat ory Pharmac y influenza virus vaccine, whole virus 0 2000 [id number] [facility] ed influenza virus vaccine, whole virus DoD tuberculin purified protein derivative 2000 [id number] 96 [facility] complet ed tuberculi n purified protein derivativ e 07/28/00 Given Ambulat ory Pharmac y tuberculin purified protein derivative 1998 [id number] 96 [facility] complet ed tuberculi n purified protein derivativ e 05/08/99 Given Ambulat ory Pharmac y influenza virus vaccine, whole virus [id number] 16 [facility] complet ed influenza virus vaccine, whole virus 05/08/99 Given Ambulat ory Pharmac y influenza virus vaccine, whole virus 0 19981427 [id number] 16 [facility] ([facility]) complet ed influenza virus vaccine, whole virus DoD typhoid vaccine, live, oral 1998 25 [employer] [place] complet ed typhoid vaccine, live, oral 12/03/98 Given Ambulat ory Pharmac y typhoid vaccine, live, oral 0 1998 25 [employer] (BP) complet ed typhoid vaccine, live, oral DoD measles, mumps and rubella virus vaccine 0 1998 03 () Not Given measles, mumps and rubella virus vaccine DoD influenza virus vaccine, whole virus [id number] 16 [facility] complet ed influenza virus vaccine, whole virus 05/09/98 Given Ambulat ory Pharmac y influenza virus vaccine, whole virus 0 19974083 [id number] 16 [facility] ([facility]) complet ed influenza virus vaccine, whole virus DoD tuberculin purified protein derivative 1997 96 [facility] complet ed tuberculi n purified protein derivativ e 05/08/98 Given Ambulat ory Pharmac y hepatitis A adult vaccine 1997 [id number] 52 [employer]ck & Company Inc complet ed hepatitis A adult vaccine 05/08/98 Given Ambulat ory Pharmac y hepatitis A vaccine, adult dosage 2 1997 [id number] 52 Merck (MSD) complet ed hepatitis A vaccine, adult dosage DoD influenza virus vaccine, whole virus [id number] 16 [employer] complet ed influenza virus vaccine, whole virus 08/15/97 Given Ambulat ory Pharmac y hepatitis B adult vaccine 1997 [id number] 43 [employer] & Company Inc complet ed hepatitis B adult vaccine 08/15/97 Given Ambulat ory Pharmac y meningococcal polysaccharid e (MPSV4) 1997 [id number] 32 [employer] complet ed meningoco ccal polysacch aride (MPSV4) 08/15/97 Given Ambulat ory Pharmac y hepatitis A adult vaccine 1997 [id number] 52 [employer] Inc complet ed hepatitis A adult vaccine 08/15/97 Given Ambulat ory Pharmac y influenza virus vaccine, whole virus 0 [id number] [id number] 16 [employer] ([place]active) ([place]) complet ed influenza virus vaccine, whole virus DoD meningococcal polysaccharid e vaccine (MPSV4) 0 1997 [id number] 32 [place] (CON) complet ed meningoco ccal polysacch aride vaccine (MPSV4) DoD hepatitis B vaccine, adult dosage 3 1997 [id number] 43 Merck (MSD) complet ed hepatitis B vaccine, adult dosage DoD hepatitis A vaccine, adult dosage 1 1997 [id number] 52 Merck (MSD) complet ed hepatitis A vaccine, adult dosage DoD hepatitis B adult vaccine 1996 [id number] 43 [employer] complet ed hepatitis B adult vaccine 08/17/96 Given Ambulat ory Pharmac y hepatitis B vaccine, adult dosage 1 1996 [id number] 43 [employer] (CON) complet ed hepatitis B vaccine, adult dosage DoD influenza virus vaccine, whole virus 1995 16 complet ed influenza virus vaccine, whole virus 05/17/96 Given Ambulat ory Pharmac y influenza virus vaccine, whole virus 0 1995 16 () complet ed influenza virus vaccine, whole virus DoD tuberculin purified protein derivative 1995 96 complet ed tuberculi n purified protein derivativ e 01/13/96 Given Ambulat ory Pharmac y yellow fever vaccine 1995 [id number] 37 [employer] complet ed yellow fever vaccine 01/13/96 Given Ambulat ory Pharmac y tetanus-dipht h toxoids (Td) adult/adol 1995 09 complet ed tetanus-d iphth toxoids (Td) adult/ado l 01/13/96 Given Ambulat ory Pharmac y tetanus and diphtheria toxoids, adsorbed, preservative free, for adult use (2 Lf of tetanus toxoid and 2 Lf of diphtheria toxoid) 0 1995 09 () complet ed tetanus and diphtheri a toxoids, adsorbed, preservat carlitos free, for adult use (2 Lf of tetanus toxoid and 2 Lf of diphtheri a toxoid) DoD yellow fever vaccine 0 1995 [id number] 37 [place] (CON) complet ed yellow fever vaccine DoD typhoid, parenteral, AKD 1995 53 complet ed typhoid, parentera l, AKD 12/09/95 Given Ambulat ory Pharmac y typhoid vaccine, parenteral, acetone-kille d, dried ([place] ) 2 1995 53 () complet ed typhoid vaccine, parentera l, acetone-k illed, dried ([place] ) DoD poliovirus vaccine, live, oral 1982 02 complet ed polioviru s vaccine, live, oral 02/01/83 Given Ambulat ory Pharmac y trivalent poliovirus vaccine, live, oral 0 1982 02 () complet ed trivalent polioviru s vaccine, live, oral DoD Vital Signs Combined list of inpatient and outpatient Vital Signs from Department of Defense and Veterans Affairs, ranging from 12 months to all on record, depending upon the facility. Vital Sign Value Date Comments Source No data available for this section Ambulatory Pharmacy Encounters Combined list of: 1) Encounters from Department of Veterans Affairs facilities going back up to thelast 18 months. 2) Encounters from the Department of Defense facilities going back up to 280 months. 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 [employer] SYLVIA JOSHUA 09[facility]01 [facility] [employer]([facility]) OUTPATIENT [id number] Notes Entered by: YASMINE ALCAZAR V 30 Oct 2018 0852 ------- ------- ------- ------- -- MEHP In-Proc YASMINE Call V 10/30 Released w/o Limitations [facility]) Theater Facility OUTPATIENT [id number] Theater Provider 05/10 Released w/o Limitations Theater Facilit y [id number] AMDS Between Visit [id number] 10/21 Discharge Disposition: Home or Self Care 8344R-4 39 AMDS 8344R-439 AMDS Dental [id number] DONTA NOELLEAMMOND 05/16 Discharge Disposition: Home or Self Care 8344R-4 39 AMDS Procedures Combined list of: 1) Procedures from Department of [facility] facilities [facility], not all [place] non-surgical procedures are included; 2) 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 Procedure Procedure Type Code Date Perfomer Comments Sourc e No data available for this section Ambulatory Pharmacy SKIN TEST; TUBERCULOSIS, INTRADERMAL 3 [facility] Skin Test Anergy Tuberculin Intradermal Skin Test Anergy Tuberculin Intradermal 55620 3 ERICA FORDE H to L forearm [facility] Social History Combined list of available smoking, tobacco, and other social history from Department of Defense and Veterans Affairs facilities. Social History Type Response Date Comment Sourc e This section is an empty social history section. DoD Assessment and Plan Combined list of future care activities from Department of Defense and Veterans Affairs facilities (e.g., assessment and plan notes, appointments, orders, and referrals). Additional future care activities may be listed in the Plan of Care section. Result Assessment and Plan Date Source Assessment and Plan No data available for this section 07/18/2024 Ambulatory Pharmacy Functional Status Combined list of recent functional and cognitive assessments recorded at Department of Defense and Veterans Affairs ([place] Functional Stephenson Measurement (FIM) Scale: 1 = Total Assistance (Subject = 0% +), 2 = Maximal Assistance (Subject = 25% +), 3 = Moderate Assistance (Subject = 50% +), 4 = Minimal Assistance (Subject = 75% +), 5 = Supervision, 6 = Modified Stephenson (Device), 7 = Complete Stephenson (Timely, Safely). Assessment Date/Time Source Assessment Type Assessment Skill Assessment Score Assessment Details No data available for this section
--- OUTSIDE RECORDS SUMMARY | 2024-07-18 09:18 | XMS_ITS ---
Author Organization Marcos Newman MD Address [address] [place] [phone] Care Team Providers Care Film Developer Name Role Phone Marcos Newman Primary Care Provider ALLERGIES No Known Allergies REASON FOR VISIT ANNUAL EXAM, NO Covid symptoms MEDICATIONS Medication SIG (Take, Route, Fr equency, Duration) Notes Start Date End Date Status Indomethacin 50 MG 1 capsule with food Orally Three times a day for 10 days 11/12/2014 No t-Taking Lisinopril 10 MG TAKE 1 TABLET BY ANGELIC TH EVERY DAY Active VITAL SIGNS Blood pressure systolic 120 mm Hg 09/13/19 24 Blood pressure diastolic 90 mm Hg 024 Height 67.5 in 09/13/2023 Encounters Encounter Location Date Provider Diagnosis Marcos Newman MD [address] [place] [phone] 09/13/2023 Marcos Newman Prediabetes R73.03 ; Annual physical exam Z00.00 ; Essential hypertension I10 ; Non morbid obesity due to excess calories E66.09 ; Colon cancer screening Z12.11 and Depression screening Z13.31 ASSESSMENTS Encounter Date Diagnosis Assessment Notes Treatment Notes Treatment Clinical Notes 09/13/2023 Prediabetes (ICD-10 - R73.03) to diet, will continue to monitor, no need for medication at this time 09/13/2023 Annual physical exam (ICD-10 - Z00.00) labs reviewed and discussed with patient 09/13/2023 Essential hypertension (ICD-10 - I10) a little on high side, will continue current regiment and will continue to monitor 09/13/2023 Non morbid obesity due to excess calories (ICD-10 - E66.09) encouraged diet 09/13/2023 Colon cancer screening (ICD-10 - Z12.11) guaiac negative 09/13/2023 Depression screening (ICD-10 - Z13.31) negative screen PLAN OF TREATMENT Medication Medication Name Sig Start Date Stop Date Notes Lisinopril 10 MG TAKE 1 TABLET BY MOUTH EVERY DAY Treatment Notes Assessment Notes Prediabetes to diet, will contin ue to monitor, no need for medication at this time Annual physical exam labs reviewed and d iscussed with patient Essential hypertension a little on high side, will continue current regiment and will continue to monitor Non morbid obesity due to excess calorie s encouraged diet Colon cancer screening guaiac negative Depression screening negative screen Next Appt Details Follow Up: 6 Months, Reason: Provider Name:Marcos bella, 09/11/2024 07:00:00 AM, [address] [place] [address], [address], [place], [phone], Provider Name:Marcos bella, 09/18/2024 08:00:00 AM, [address] [place] [address], [address], [place], [place], [phone], Progress Notes * Examination Category Sub-Category Detail Notes General Examination GENERAL APPEARANCE: well dev eloped, well nourished, in no acute distress HEAD: normocephalic, atrau matic EYES: pupils equal, round, reactive to light and accommodation, sclera non- icteric EARS: normal THROAT: clear NECK/THYROID: neck supple, full ra nge of motion, no cervical lymphadenopathy, no bruits HEART: regular rate and rhy thm, S1, S2 normal, no murmurs LUNGS: clear to auscultatio n bilaterally ABDOMEN: soft, nontender, non distended, bowel sounds present, normal, no organomegaly , no masses palpable NEUROLOGIC: nonfocal, motor stre ngth normal upper and lower extremities, sensory exam intact SKIN: warm and dry, no leena picious lesions, abnormal with multiple skin tags in axilla and paty keratosis on back EXTREMITIES: no clubbing, cyanosi s, or edema MALE GENITOURINARY: circumcised, no test icular mass, no testicular mass RECTAL EXAM: normal tone, no exte rnal hemorrhoids, no masses palpable, prostate normal, stool guaiac negative ORAL CAVITY: mucosa moist History and Physical Notes * HPI (History of Present Illness) Category Sub-Category Detail Notes Depression Screening PHQ-9 Little inte rest or pleasure in doing things: Not at all Feeling down, depressed, or hopeless: No t at all Trouble falling or staying asleep, or sl eeping too much: Not at all Feeling tired or having little energy: N ot at all Poor appetite or overeating: Not at all Feeling bad about yourself o r that you are a failure, or have let yourself or your family down: Not at all Trouble concentrating on thi ngs, such as reading the newspaper or watching television: Not at all Moving or speaking so slowly that other people could have noticed; or the opposite, being so fidgety or restless that you have been moving around a lot more than usual: Not at all Thoughts that you would be b leandro off or of hurting yourself in some way: Not at all Total Score: 0 Interpretation and Intervention Depression Terrell botello Findings: Negative Follow-Up for Depression: : review of PH Q-9 found negative result, no follow-up needed SDOH Questions SDOH Questions In the past year have you been worried about losing housing?: No In the past year have you or any family members you live with been unable to get any of the following when it was really needed? Check all that apply:: None Communication Needs Communication Needs Does the patient have a hearing impairment: No Does the patient have a vision impairmen t?: Yes ?If yes, what is the vision impairment?: Glasses Does the patient have a cognition impair ment?: No
--- OUTSIDE RECORDS SUMMARY | 2024-07-18 09:18 | XMS_ITS ---
Author Organization Marcos Newman MD Address [address] [place] [id number] Care Team Providers Care Support Representative Name Role Phone Marcos Newman Primary Care Provider [phone] RESULTS Component Value Reference Range Notes Complete Blood Count Auto Di ff Reviewed date:09/07/2023 04:59:24 PM Interpretation: Performing Lab:[facility], [address] [place] [address] [place] [address] Notes/Report: White Blood Count 7.6 4.8-10.8 X10*3/uL [...] NRBC Abs Auto 0.000 0.0-0.012 X10*3/uL Comprehensive Darling. Panel Fa st Reviewed date:09/07/2023 04:59:41 PM Interpretation: Performing Lab:[facility], [address] [place] [phone] Notes/Report: Sodium 138 135-145 mmol/L Potassium 4.2 3.3-5.1 mmol/L Chloride 104 96-108 mmol/L Carbon Dioxide 27 22-29 mmol/L Anion Gap 11 12-20 Blood Urea Nitrogen 14 9-16 mg/dL Creatinine 0.96 0.5-1.4 mg/dL Estimated Glomerular Filt Rate > 60 NOTE: For -Finnish individuals, multiply the result by 1.210. Chronic [...] Panel Reviewed date:09/06/2023 12:34:27 PM Interpretation: Performing Lab:[facility], [address] [place] [phone] Notes/Report: Triglycerides 183 <150 mg/dL Desirable Triglyceride: [...] (Free>4and<10) Reviewed date:09/06/2023 12:34:16 PM Interpretation: Performing Lab:[address] [phone] Notes/Report: PSA,Total (Free>4and<10) 1.79 0.00-4.00 ng/mL A [...] t Reviewed date:09/06/2023 04:48:11 PM Interpretation: Performing Lab:[address] [phone] Notes/Report: Urine, Clean Catch Color Urine Yellow Appearance Urine Clear PH 6.0 5.0-9.0 Glucose Urine UA Negative Negative mg/dL Urine Blood Negative Negative Specific [place] - Urine 1.020 1.005-1.025 Urine Protein Negative Neg-Trace mg/dL Urine Ketones Negative Negative mg/dL Nitrite Urine Negative Negative Leukocyte Esterase Urine Negative Negative RBC Urine 0-2 0-2 /HPF WBC Urine 0-5 0-5 /HPF Squamous Epithelial Cell Urine 0-2 0-2 /HPF Bacteria Urine None Seen None Seen Hyaline Casts Urine 0-2 0-2 /LPF REASON FOR VISIT FASTING LABS Encounters Encounter Location Date Provider Diagnosis Marcos Newman MD [address] [place] [address] [place] [phone] 09/06/2023 Marcos Newman Blood tests for routine general physical examination Z00.00 ; Essential hypertension I10 and Low HDL (under 40) E78.6 ASSESSMENTS Encounter Date Diagnosis Assessment Notes Treatment Notes Treatment Clinical Notes 09/06/2023 Blood tests for routine general physical examination (ICD-10 - Z00.00) 09/06/2023 Essential hypertension (ICD-10 - I10) 09/06/2023 Low HDL (under 40) (ICD-10 - E78.6) PLAN OF TREATMENT Next Appt Details Provider Name:Marcos bella, 09/11/2024 07:00:00 AM, [address] [place] [address], Suite [facility], [place], [place], [phone], Provider Name:Marcos bella, 09/18/2024 08:00:00 AM, [address] [place] [address], Suite [facility], [place], [place], [phone],
--- OUTSIDE RECORDS SUMMARY | 2024-07-18 09:18 | XMS_ITS | Patient Health Record ---
Author Organization [facility] Address [address] [place] [address] Care Team Providers Care Developmental Training Counselor Name Role Phone Marcos Newman MD Primary Care Provider Herman Contreras Unavailable [phone] ALLERGIES No Known Allergies REASON FOR REFERRAL No Information MEDICATIONS Medication SIG (Take, Route, Fr equency, Duration) Notes Start Date End Date Status Multivitamin Active Lisinopril 10 MG Orally Act carlitos IMMUNIZATIONS Vaccine Route Administration Date Status Comme nts Influenza Unknown 04/24/2021 Administered SOCIAL HISTORY Sex Assigned At : Social History Observation Description Sex Assigned At Unknown PROBLEMS Problem Type ICD Code Onset Dates Problem Status W/U Status Risk SNOMED Code Notes Problem Encounter for screening for malignant neoplasm of colon (Z12.11) Active confirmed 815239166 Problem Encounter for screening for malignant neoplasm of rectum (Z12.12) Active confirmed Screening fo r malignant neoplasm of rectum (983530338) Problem Preprocedural examination (Z01.818) Active confirmed 91414898 Problem History of adenomatous polyp of colon (Z86.010) Active confirmed History of adenomatous polyp of colon (114655256) Problem Encounter for other preprocedural examination (Z01.818) Active confirmed Pre-procedure evaluation check (787405214) Problem History of colon polyps (Z86.010) Active confirmed History of polyp of colon (344269344) Problem Diverticulosis of colon (K57.30) Active confirmed Diverticulosi s of colon (496223434) PLAN OF TREATMENT Future Test Test Name Order Date COLONOSCOPY 06/08/2016 COLONOSCOPY 01/11/2022 Insurance Providers Payer Name Payer Address Payer Phone Subscriber Number Group Number Insured Name Patient Relationship to Insured Coverage Start Date Coverage End Date [facility] [address] [place], [place] [phone] [id number] BRIANNA NAYAK Self - patient is the insured MEDICAL (GENERAL) HISTORY Medical History History ICD Code Hypertension Denies MS,DM,CVA,Lung disease,renal dise ase COVID positive x 2 in 07/2019 and 11/2021 Colonoscopy 08/2016 1.5cm tubular adenoma removed Surgical History Surgery Date(Month/Year) Umbilical hernia repair x 2
--- OUTSIDE RECORDS SUMMARY | 2024-07-18 09:18 | XMS_ITS ---
Author Organization Marcos Newman MD Address [address] [place] [phone] Care Team Providers Care Net Trainer Name Role Phone Marcos Newman Primary Care Provider [phone] ALLERGIES No Known Allergies REASON FOR REFERRAL Reason KALINA Diagnosis 1 KALINA (obstructive sle ep apnea) (G47.33) Referral Organization Marcos Newman MD Referring Provider First Name Marcos Referring Provider Last Name Trent Referring Provider Speciality Internal M edicine Referred Provider CHANTE TAVAREZ Referred Provider Specialty Sleep Medici ne General Notes Lea Gomez 02:43:32 PM EST > info faxed Jason Annette 07/04/2024 09:21:40 AM EST > referal info mailed to patient with letter Referral Priority Routine Referral Appointment Date 11/12/2024 Reason lipoma of back Diagnosis 1 Lipoma of back (D17. 1) Referral Organization Marcos Newman MD Referring Provider First Name Marcos Referring Provider Last Name Trent Referring Provider Speciality Internal M edicine Referred Provider Scotty De La Torre Referred Provider Specialty Surgery General Notes Lea Gomez 02:44:02 PM EST > info faxed Jason Annette 06/12/2024 03:25:14 PM EST > was told patient is aware of appt Referral Priority Routine Referral Appointment Date 06/16/2024 REASON FOR VISIT 6 month BP MEDICATIONS Medication SIG (Take, Route, Fr equency, Duration) Notes Start Date End Date Status Valsartan 160 MG 1 tablet Orally Once a day for 90 days 06/05/2024 Active Indomethacin 50 MG 1 capsule with food Orally Three times a day for 10 days 11/12/2014 No t-Taking VITAL SIGNS BMI 39.65 kg/m2 06/05/2024 Blood pressure systolic 144 mm Hg 06/05/20 24 Blood pressure diastolic 96 mm Hg 024 Height 67.5 in 06/05/2024 Weight 257 lbs 06/05/2024 weight is up 14 pounds since 02-09-23 Encounters Encounter Location Date Provider Diagnosis Marcos Newman MD [address] [place], [place] [phone] 06/05/2024 Marcos Newman Other specified coug h R05.8 ; Adverse effect of angiotensin-convertin g-enzyme inhibitors, initial encounter T46.4X5A ; Essential hypertension I10 ; KALINA (obstructive sleep apnea) G47.33 and 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 ASSESSMENTS Encounter Date Diagnosis Assessment Notes Treatment Notes Treatment Clinical Notes 06/05/2024 Other specified cough (ICD-10 - R05.8) 06/05/2024 Adverse effect of angiotensin-convert ing-enzyme inhibitors, initial encounter (ICD-10 - T46.4X5A) patient verbalized understanding will stop the jess and start valsartan 06/05/2024 Essential hypertension (ICD-10 - I10) had not been taking meds for 4 days, patient verbalized understanding of new medication and directions for use 06/05/2024 KALINA (obstructive sleep apnea) (ICD-10 - G47.33) referral to sleep medicine 06/05/2024 Lipoma of back (ICD-10 - D17.1) referral to dr de la torre PLAN OF TREATMENT Medication Medication Name Sig Start Date Stop Date Notes Valsartan 160 MG 1 tablet Orally Once a day for 90 days Lisinopril 10 MG TAKE 1 TABLET BY MOUTH EVERY DAY Treatment Notes Assessment Notes Adverse effect of pvsepuykkyo-gqadhdicus-eufxmm inhibitors, initial encounter patient verbalized understanding will st op the jess and start valsartan Essential hypertension had not been taki ng meds for 4 days, patient verbalized understanding of new medication and directions for use KALINA (obstructive sleep apnea) referral t o sleep medicine Lipoma of back referral to dr de la torre Referrals Referral Date Details 11/12/2024 11/12/2024, KALINA, ROXANNDianne TAVAREZ 06/16/2024 06/16/2024, lipoma o f back, Scotty De La Torre Next Appt Details Follow Up: 2 Months, Reason: Provider Name:Marcos Garcia Lopez ier, 09/11/2024 07:00:00 AM, [address], [address], [place], [place], [phone], Provider Name:Marcos Marroquin ier, 09/18/2024 08:00:00 AM, [address], [address], [place], [place], [phone], Progress Notes * Examination Category Sub-Category Detail Notes General Examination GENERAL APPEARANCE: pleasant , in no acute distress HEAD: normocephalic HEART: no murmurs, rubs, ga llops , regular rate and rhythm CHEST: abnormal with a recu rring lipoma on rt shoulder LUNGS: no wheezes, rales, r honchi , good air movement , clear to auscultation bilaterally SKIN: good turgor Consultation Request Notes Referral Date Referring Provider Referred Provider Not es 06/05/2024 Marcos Newman PAUL OSA 06/05/2024 Marcos Newman Pasquale lipoma o f back
[2024-07-18 10:12] VITALS: BMI 41.7
[2024-07-18 10:21] VITALS: BP 144/88; PULSE 70; RESP 16; TEMP 37.2; O2SAT 97
[2024-07-18] MEDS: Lactated Ringers 1,000 ML 100 ML IVCONT (10:33)
[2024-07-18 13:48] VITALS: BP 120/70; PULSE 94; RESP 19; TEMP 36.4; O2SAT 97
[2024-07-18 13:53] VITALS: BP 120/69; PULSE 78; RESP 16; O2SAT 100
--- NOTE | 2024-07-18 13:55 | W.PM.OPN ---
Operative Note Operative Note Date of Service: 07/18/24 Narrative: Preoperative diagnosis: [] Recurrent right upper back lipoma Postop diagnosis: [] The same Procedure [] wide local excision recurrent right upper back large lipoma Surgeon: [] Wil Antenna Engineer: [] Silver Type of Anesthesia: [] MAC Indication for surgery: [] Specimen measured roughly 9 x 5 cm consistent with a giant right recurrent upper back lipoma Findings: [] Patient brought to the operating room, placed on operative table supine position, after an adequate level of MAC anesthesia was induced, patient was placed in left lateral decubitus position. Right upper back was prepped and draped in usual sterile fashion using an incision from the prior scar from the previous lipoma excision (done by another surgeon), this carried down through skin, subcutaneous tissue, were superior and inferior skin flaps were developed and circumferentially dissection of a very large lipoma down to the posterior chest wall muscle was performed using Bovie. This mass was dissected and resected using Bovie. Specimen sent to pathology. Wound was irrigated, secured hemostasis, and closed using interrupted inverted dermal 3-0 Vicryl sutures followed by Steri-Strips and sterile dressings. Wound was infiltrated at the beginning at the end with 0.5% Marcaine/1% lidocaine. Sponge, needle, and instrument counts were reported correct. Patient tolerated the procedure well and emerged from anesthesia stable condition. EBL minimal
[2024-07-18 14:08] VITALS: BP 105/66; PULSE 72; RESP 14; O2SAT 98
[2024-07-18 14:18] VITALS: BP 124/83; PULSE 81; RESP 16; TEMP 36.2; O2SAT 99
== END 2024-07-18 14:37 | disposition home or self-care (01) ==
PROVIDERS: PCP Internal Medicine; Visit Provider Surgery
PROC: (CPT 21931; principal; 2024-07-18 13:10)
DX: D17.1 Benign lipomatous neoplasm of skin and subcutaneous tissue of trunk (principal); I10 Essential (primary) hypertension; G47.33 Obstructive sleep apnea (adult) (pediatric); Z79.899 Other long term (current) drug therapy; Z88.8 Allergy status to other drugs, medicaments and biological substances; Z98.890 Other specified postprocedural states
CPT/HCPCS: 21931; 88304; J0690; J2003; J2250; J2704; J2795; J3010

== ENCOUNTER → 2024-07-18 09:03 | Outpatient (BNV) | payer BC, SELFPAY | PROVIDERS: PCP Internal Medicine; Visit Provider Surgery | DX: D17.1 Benign lipomatous neoplasm of skin and subcutaneous tissue of trunk (principal) | CPT/HCPCS: 21933 ==

== ENCOUNTER 2024-07-29 10:16 | Outpatient (AMB) | payer BC, SELFPAY ==
--- NOTE | 2024-07-29 10:18 | A.OFFVIS_ITS ---
Intake Visit Reasons: S/P WLE Lt. mid back giant lipoma Intake Note: Patient here s/p wide local excision recurrent right upper back large lipoma. Reports incision healing well. Patient c/o: Surgery: 07-12-2024 Allergies lisinopril Adverse Reaction (Verified 07/18/24 10:10) Cough HPI Comments Details: Patient presents for follow-up. He is no wound issues or complaints. Pathology is benign. [facility] Medical History (Updated 07/15/24 @ 09:00 by Kalie Kirk RN) History of lipoma (05/2022) KALINA (obstructive sleep apnea) History of COVID-19 HTN (hypertension) Surgical History (Updated 07/29/24 @ 10:32 by Scotty De La Torre MD) Hx of LASIK Hx of umbilical hernia repair H/O colonoscopy Social History Alcohol intake: never Patient Tobacco Use Status: Never used Tobacco Physical Exam Back/Spine/Pelvis Other: Incision is well healed. Patient has moderately sized seroma which was expected secondary to the magnitude of the mass excised. Under sterile technique, this was aspirated were 70 cc of serous fluid was retrieved. Dressing applied. We will tolerated Assessment & Plan Assessment & Plan (1) Status post excision of lipoma: Code(s): Z98.890 - Other specified postprocedural states; Z86.018 - Personal history of other benign neoplasm Category: Medical Plan Patient was been given local instructions including avoiding strenuous activities next few weeks time and will otherwise follow-up p.r.n.. She would a seroma recur in particular, he has been instructed to contact the office. All questions answered. Coding Level of Care Code Global (87135) Diagnoses Status post excision of lipoma Z98.890; Z86.018
--- OUTSIDE RECORDS SUMMARY | 2024-07-29 10:58 | XMS_ITS | Continuity of Care Document ---
Author Name [facility] Organization [facility] Care Team Providers Care Civil Engineer In Training Name Role Phone [facility] Unavailable Unavailable Problems Combined list of problems [...] Site Reaction Lot Number CVX Code Drug Surfacing Machine Operator Status Comments Source influenza, injectable, quadrivalent- pf 2021 [id number] 150 GlaxoSmithKli ne complet ed influenza , injectabl e, quadrival ent-pf 05/06/22 Given Ambulat ory Pharmac y influenza, seasonal, injectable 2020 [id number] 141 GlaxoSmithKli ne complet ed influenza , seasonal, injectabl e 04/19/21 Given Ambulat ory Pharmac y COVID Vaccine Moderna 2020 [id number] 207 complet ed COVID Vaccine Moderna 09/17/20 Given Ambulat ory Pharmac y COVID Vaccine Moderna 2020 [id number] 207 complet ed COVID Vaccine Moderna 08/15/20 Given Ambulat ory Pharmac y influenza, injectable, quadrivalent- pf 2019 [id number] 150 Seqirus complet ed influenza , injectabl e, quadrival ent-pf 06/01/20 Given Ambulat ory Pharmac y poliovirus vaccine, inactivated 2019 [id number] 10 sanofi pasteur complet ed polioviru s vaccine, inactivat ed 09/15/19 Given Ambulat ory Pharmac y typhoid Vi capsular polysaccharid e vac 2019 [id number] 101 sanofi pasteur complet ed typhoid Vi capsular polysacch aride vac 09/15/19 Given Ambulat ory Pharmac y anthrax vaccine 2019 [id number] 24 [employer] complet ed anthrax vaccine 09/15/19 Given Ambulat ory Pharmac y anthrax vaccine 2019 [id number] 24 [employer] complet ed anthrax vaccine 08/03/19 Given Ambulat ory Pharmac y influenza, injectable, quadrivalent- pf 2018 [id number] 150 Seqirus complet ed influenza , injectabl e, quadrival ent-pf 06/11/19 Given Ambulat ory Pharmac y tuberculin purified protein derivative 2018 [id number] 96 sanofi pasteur complet ed tuberculi n purified protein derivativ e 09/04/18 Given Ambulat ory Pharmac y tetanus, diphtheria, acellular pertu is 2017 [id number] 115 sanofi pasteur complet ed tetanus, diphtheri a, acellular pertussis 06/04/18 Given Ambulat ory Pharmac y tetanus toxoid, reduced diphtheria toxoid, and acellular pertu is vaccine, adsorbed 4 2017 [id number] 115 Sanofi Pasteur ([facility]) complet ed tetanus toxoid, reduced diphtheri a toxoid, and acellular pertussis vaccine, adsorbed DoD influenza, seasonal, injectable 2017 [id number] 141 GlaxoSmithKli ne complet ed influenza , seasonal, injectabl e 05/14/18 Given Ambulat ory Pharmac y Influenza, seasonal, injectable 1 2017 [id number] 141 [facility] ([facility]) complet ed Influenza , seasonal, injectabl e DoD influenza, injectable, quadrivalent 2016 [id number] 158 [employer] comple t ed influenza , injectabl e, quadrival ent 05/26/17 Given Ambulat ory Pharmac y influenza, injectable, quadrivalent, contains preservative 0 2016 [id number] 158 (IDB) complet ed influenza , injectabl e, quadrival ent, contains preservat carlitos DoD measles/mumps /rubella virus vaccine 2016 [id number] 03 Merck & Company Inc complet ed measles/m umps/rube lla virus vaccine 08/25/16 Given Ambulat ory Pharmac y measles, mumps and rubella virus vaccine 2 2016 [id number] 03 Merck (MSD) complet ed measles, mumps and rubella virus vaccine DoD measles/mumps /rubella virus vaccine 2016 [id number] 03 Merck & Company Inc complet ed measles/m umps/rube lla virus vaccine 07/28/16 Given Ambulat ory Pharmac y measles, mumps and rubella virus vaccine 1 2016 [id number] 03 Merck (MSD) complet ed measles, mumps and rubella virus vaccine DoD influenza, seasonal, injectable 2015 [id number] 141 Seqirus complet ed influenza , seasonal, injectabl e 05/07/16 Given Ambulat ory Pharmac y Influenza, seasonal, injectable 1 2015 [id number] 141 Seqirus (SEQ) comple t ed Influenza , seasonal, injectabl e DoD influenza, seasonal, injectable-pf 2014 [id number] 140 CSL [employer] complet ed influenza , seasonal, injectabl e-pf 04/18/15 Given Ambulat ory Pharmac y Influenza, seasonal, injectable, preservative free 0 2014 [id number] 140 [employer] (L) complet ed Influenza , seasonal, injectabl e, preservat carlitos free DoD influenza, seasonal, injectable-pf 2013 [id number] 140 C[employer]ring complet ed influenza , seasonal, injectabl e-pf 04/12/14 Given Ambulat ory Pharmac y Influenza, seasonal, injectable, preservative free 1 2013 [id number] 140 CS [employer] Inc[employer] (CSL) complet ed [...] intraderm al DoD Influenza, injectable, MDCK-pf 2012 [id number] 153 Novartis Pharmaceutica ls complet ed Influenza , injectabl e, MDCK-pf 06/08/13 Given Ambulat ory Pharmac y Influenza, injectable, Madin Tianna Canine Kidney, preservative free 0 2012 [id number] 153 Novartis Pharmaceutica l Ac. (NOV) complet ed Influenza , injectabl e, Madin Tianna Canine Kidney, preservat carlitos free DoD tuberculin purified protein derivative 2012 zzLef t Arm [id number] 96 sanofi pasteur complet ed Patient Tolerance : Negative Ambulat ory Pharmac y tuberculin skin test; purified protein derivative solution, intradermal 0 2012 ERICA FORDE [id number] 96 Sanofi Pasteur ([facility]) complet ed tuberculi n skin test; purified protein derivativ e solution, intraderm al DoD influenza, seasonal, injectable-pf 2011 [id number] 140 C[employer]ring complet ed influenza , seasonal, injectabl e-pf 05/18/12 Given Ambulat ory Pharmac y Influenza, seasonal, injectable, preservative free 17 2011 [id number] [address] [employer] (CSL) complet ed Influenza , seasonal, injectabl e, preservat carlitos free DoD influenza virus vaccine, live 2010 [id number] 111 [employer] comple t ed influenza virus vaccine, live 06/11/11 Given Ambulat ory Pharmac y influenza virus vaccine, live, attenuated, for intranasal use 0 2010 [id number] 111 [employer] (MED) complet ed influenza virus vaccine, live, attenuate d, for intranasa l use DoD influenza virus vaccine, live 2009 [id number] 111 [employer] comple t ed influenza virus vaccine, live 05/08/10 Given Ambulat ory Pharmac y influenza virus vaccine, live, attenuated, for intranasal use 1 2009 [id number] 111 [employer] (MED) complet ed influenza virus vaccine, live, attenuate d, for intranasa l use DoD Novel influenza-H1N 1-09, injectable 2009 [id number] 1 127 Novartis Pharmaceutica complet ed Novel influenza -[id number], injectabl e 08/15/09 Given Ambulat ory Pharmac y Novel influenza-H1N 1-09, injectable 1 2009 [id number] 1 127 Novartis Pharmaceutica l Ac. (NOV) complet ed Novel influenza -D0L2-83, injectabl e DoD influenza virus vaccine, live 2008 [id number] 111 Medimmune Inc comple t ed influenza virus vaccine, live 05/08/09 Given Ambulat ory Pharmac y influenza virus vaccine, live, attenuated, for intranasal use 1 2008 [id number] 111 [employer] (MED) complet ed influenza virus vaccine, live, attenuate d, for intranasa l use DoD influenza virus vaccine,split 2007 [id number] 15 GlaxoSmithKli ne complet ed influenza virus vaccine,s plit 06/28/08 Given Ambulat ory Pharmac y influenza virus vaccine, split virus (incl. purified surface antigen)-reti red CODE 1 2007 [id number] 2AA 15 [facility] (B) complet ed influenza virus vaccine, split virus (incl. purified surface antigen)- retired CODE [facility] tetanus, diphtheria, acellular pertu is 2007 [id number] 115 sanofi pasteur complet ed tetanus, diphtheri a, acellular pertussis 02/26/08 Given Ambulat ory Pharmac y typhoid Vi capsular polysaccharid e vac 2007 [id number] 101 sanofi pasteur complet ed typhoid Vi capsular polysacch aride vac 02/26/08 Given Ambulat ory Pharmac y typhoid Vi capsular polysaccharid e vaccine 1 2007 [id number] 101 Sanofi Pasteur ([facility]) complet ed typhoid Vi capsular polysacch aride vaccine DoD tetanus toxoid, reduced diphtheria toxoid, and acellular pertu is vaccine, adsorbed 1 2007 [id number] 115 Sanofi Pasteur ([facility]) complet ed tetanus toxoid, reduced diphtheri a toxoid, and acellular pertussis vaccine, adsorbed DoD influenza virus vaccine,split 2007 [id number] 9AA 15 GlaxoSmithKli ne complet ed influenza virus vaccine,s plit 10/06/07 Given Ambulat ory Pharmac y influenza virus vaccine, split virus (incl. purified surface antigen)-reti red CODE 1 2007 [id number] 9AA 15 [facility] ([facility]) complet ed influenza virus vaccine, split virus (incl. purified surface antigen)- retired CODE DoD influenza virus vaccine,split 2005 [id number] 15 Unknown complet ed influenza virus vaccine,s plit 06/23/06 Given Ambulat ory Pharmac y influenza virus vaccine, split virus (incl. purified surface antigen)-reti red CODE 1 2005 [id number] 15 Other (OTH) complet ed influenza virus vaccine, split virus (incl. purified surface antigen)- retired CODE [facility] tetanus-dipht h toxoids (Td) adult/adol 2005 [id number] 09 sanofi pasteur complet ed tetanus-d iphth toxoids (Td) adult/ado l 01/13/06 Given Ambulat ory Pharmac y typhoid vaccine, parenteral 2005 [id number] 41 sanofi pasteur complet ed typhoid vaccine, parentera l 01/13/06 Given Ambulat ory Pharmac y tetanus and diphtheria toxoids, adsorbed, preservative free, for adult use (2 Lf of tetanus toxoid and 2 Lf of diphtheria toxoid) 1 2005 [id number] 09 Sanofi Pasteur ([facility]) complet ed tetanus and diphtheri a toxoids, adsorbed, preservat carlitos free, for adult use (2 Lf of tetanus toxoid and 2 Lf of diphtheri a toxoid) DoD typhoid vaccine, parenteral, other than acetone-kille d, dried 1 2005 [id number] 41 Sanofi Pasteur ([facility]) complet ed typhoid vaccine, parentera l, other than acetone-k illed, dried DoD influenza virus vaccine,split 2004 [id number] 15 sanofi pasteur complet ed influenza virus vaccine,s plit 06/25/05 Given Ambulat ory Pharmac y influenza virus vaccine, split virus (incl. purified surface antigen)-reti red CODE 1 2004 [id number] 15 Sanofi Pasteur ([facility]) complet ed influenza virus vaccine, split virus (incl. purified surface antigen)- retired CODE [facility] hepatitis B vaccine, adult dosage 0 2004 43 () Not Given hepatitis B vaccine, adult dosage DoD varicella virus vaccine 0 2004 21 () Not Given varicella virus vaccine DoD influenza virus vaccine, live 2004 [id number] 111 [employer] comple t ed influenza virus vaccine, live 08/15/04 Given Ambulat ory Pharmac y influenza virus vaccine, live, attenuated, for intranasal use 0 2004 [id number] 111 [employer] (MED) complet ed influenza virus vaccine, live, attenuate d, for intranasa l use DoD typhoid vaccine, parenteral 2003 [id number] 41 sanofi pasteur complet ed typhoid vaccine, parentera l 01/06/04 Given Ambulat ory Pharmac y typhoid vaccine, parenteral, other than acetone-kille d, dried 0 2003 [id number] 41 Sanofi Pasteur ([facility]) complet ed typhoid vaccine, parentera l, other than acetone-k illed, dried DoD influenza virus vaccine, whole virus 2003 [id number] 16 sanofi pasteur complet ed influenza virus vaccine, whole virus 09/12/03 Given Ambulat ory Pharmac y influenza virus vaccine, whole virus 0 2003 [id number] 16 Sanofi Pasteur ([facility]) complet ed influenza virus vaccine, whole virus DoD tuberculin purified protein derivative 2002 [id number] 96 sanofi pasteur complet ed tuberculi n purified protein derivativ e 01/10/03 Given Ambulat ory Pharmac y influenza virus vaccine, whole virus 2001 [id number] 16 sanofi pasteur complet ed influenza virus vaccine, whole virus 05/10/02 Given Ambulat ory Pharmac y influenza virus vaccine, whole virus 0 2001 [id number] 16 Sanofi Pasteur ([facility]) complet ed influenza virus vaccine, whole virus DoD meningococcal polysaccharid e (MPSV4) 2001 [id number] 32 sanofi pasteur complet ed meningoco ccal polysacch aride (MPSV4) 12/25/01 Given Ambulat ory Pharmac y tuberculin purified protein derivative 2001 [id number] 96 sanofi pasteur complet ed tuberculi n purified protein derivativ e 12/25/01 Given Ambulat ory Pharmac y meningococcal polysaccharid e vaccine (MPSV4) 0 2001 [id number] 32 Sanofi Pasteur ([facility]) complet ed meningoco ccal polysacch aride vaccine (MPSV4) DoD influenza virus vaccine, whole virus 2000 [id number] 16 sanofi pasteur complet ed influenza virus vaccine, whole virus 06/08/01 Given Ambulat ory Pharmac y influenza virus vaccine, whole virus 0 2000 [id number] 16 Sanofi Pasteur ([facility]) complet ed influenza virus vaccine, whole virus DoD tuberculin purified protein derivative 2000 96 complet ed tuberculi n purified protein derivativ e 08/11/00 Given Ambulat ory Pharmac y influenza virus vaccine, whole virus 2000 [id number] 16 [facility] complet ed influenza virus vaccine, whole virus 08/11/00 Given Ambulat ory Pharmac y influenza virus vaccine, whole virus 0 2000 [id number] 16 [facility] complet ed influenza virus vaccine, whole virus DoD tuberculin purified protein derivative 2000 [id number] 96 [facility] complet ed tuberculi n purified protein derivativ e 07/28/00 Given Ambulat ory Pharmac y tuberculin purified protein derivative 1998 [id number] 96 [facility] complet ed tuberculi n purified protein derivativ e 05/08/99 Given Ambulat ory Pharmac y influenza virus vaccine, whole virus 19986666 [id number] 16 [facility] complet ed influenza virus vaccine, whole virus 05/08/99 Given Ambulat ory Pharmac y influenza virus vaccine, whole virus 0 [id number] 16 [facility] ([facility]) complet ed influenza virus vaccine, whole virus DoD typhoid vaccine, live, oral 1998 25 [employer] [place] complet ed typhoid vaccine, live, oral 12/03/98 Given Ambulat ory Pharmac y typhoid vaccine, live, oral 0 1998 25 [employer] (BP) complet ed typhoid vaccine, live, oral DoD measles, mumps and rubella virus vaccine 0 1998 03 () Not Given measles, mumps and rubella virus vaccine DoD influenza virus vaccine, whole virus [id number] [id number] 16 [facility] complet ed influenza virus vaccine, whole virus 05/09/98 Given Ambulat ory Pharmac y influenza virus vaccine, whole virus 0 19979077 [id number] 16 [facility] ([facility]) complet ed influenza virus vaccine, whole virus DoD tuberculin purified protein derivative 1997 96 [facility] complet ed tuberculi n purified protein derivativ e 05/08/98 Given Ambulat ory Pharmac y hepatitis A adult vaccine 1997 [id number] 52 [employer] & Company Inc complet ed hepatitis A adult vaccine 05/08/98 Given Ambulat ory Pharmac y hepatitis A vaccine, adult dosage 2 1997 [id number] 52 Merck (MSD) complet ed hepatitis A vaccine, adult dosage DoD influenza virus vaccine, whole virus 19973974 [id number] 16 [employer] complet ed influenza virus vaccine, whole virus 08/15/97 Given Ambulat ory Pharmac y hepatitis B adult vaccine 1997 [id number] 43 [employer] Inc complet ed hepatitis B adult vaccine 08/15/97 Given Ambulat ory Pharmac y meningococcal polysaccharid e (MPSV4) 1997 [id number] 32 [employer] complet ed meningoco ccal polysacch aride (MPSV4) 08/15/97 Given Ambulat ory Pharmac y hepatitis A adult vaccine 1997 [id number] 52 [employer] Inc complet ed hepatitis A adult vaccine 08/15/97 Given Ambulat ory Pharmac y influenza virus vaccine, whole virus 0 19978670 [id number] 16 [employer] (Inactive) ([place]) complet ed influenza virus vaccine, whole virus DoD meningococcal polysaccharid e vaccine (MPSV4) 0 1997 [id number] 32 [place] (CON) complet ed meningoco ccal polysacch aride vaccine (MPSV4) DoD hepatitis B vaccine, adult dosage 3 1997 [id number] 43 Merck (MSD) complet ed hepatitis B vaccine, adult dosage DoD hepatitis A vaccine, adult dosage 1 1997 [id number] 52 Merck (MSD) complet ed hepatitis A vaccine, adult dosage DoD hepatitis B adult vaccine 1996 [id number] 43 [employer] complet ed hepatitis B adult vaccine 08/17/96 Given Ambulat ory Pharmac y hepatitis B vaccine, adult dosage 1 1996 [id number] 43 [employer] (CON) complet ed hepatitis B [...] ory Pharmac y yellow fever vaccine 1995 [id number] 37 [employer] complet ed yellow fever [...] toxoid) DoD yellow fever vaccine 0 1995 [id number] 37 [employer] (CON) complet ed yellow fever [...] Date DC Date Status Disposition Source KOREY CRUZ([facility]) OUTPATIENT [id number] ad inpro medevac MARNIE SPENCE 08/05 Released w/o Limitations ANNCY CT([facility]) NANCY CT([facility]) OUTPATIENT [id number] 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 [employer] SYLVIA JOSHUA 09/01 [facility] [employer]([facility]) OUTPATIENT [id number] Notes Entered by: YASMINE ALCAZAR V 30 Oct 2018 0852 ------- ------- ------- ------- -- MEHP In-Proc YASMINE Call V 10/30 Released w/o Limitations [facility]) Theater Facility OUTPATIENT [id number] Theater Provider 05/10 Released w/o Limitations Theater Facilit y 8344R-[id number] AMDS Between Visit [id number] 10/21 Discharge Disposition: Home or Self Care 8344R-4 39 AMDS 8344R-439 AMDS Dental [id number] DONTA NOELLEAMMOND 05/16 Discharge Disposition: Home or Self Care 8344R-4 39 AMDS 8344R-439 AMDS Preclinic [id number] 08/02 8344R-4 39 AMDS Procedures Combined list of: 1) [facility], not all [place] non-surgical procedures are included; 2) 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 Procedure Procedure Type Code Date Perfomer Comments Sourc e SKIN TEST; TUBERCULOSIS, INTRADERMAL 3 DoD Skin Test Anergy Tuberculin Intradermal Skin Test Anergy Tuberculin Intradermal [id number] 3 ERICA FORDE H to L forearm [facility] No data available for this section Ambulatory Pharmacy Social History Combined list of available smoking, [...] and Plan Date Source Assessment and Plan Future Appointments Appointment Date: 08/02/2024 10:30:00 AM Scheduled Provider: Location: [address] [place] [address] Appointment Type: NG/R FTR 07/29/2024 Ambulatory Pharmacy Functional Status Combined list of recent functional and cognitive assessments recorded at Department of Defense and [facility] (VA).[facility] Functional Cavalier Measurement (FIM) Scale: 1 = Total Assistance (Subject = 0% +), 2 = Maximal Assistance (Subject = 25% +), 3 = Moderate Assistance (Subject = 50% +), 4 = Minimal Assistance (Subject = 75% +), 5 = Supervision, 6 = Modified Cavalier (Device), 7 = Complete Cavalier (Timely, Safely). Assessment Date/Time Source Assessment Type Assessment Skill Assessment Score Assessment Details No data available for this section
--- OUTSIDE RECORDS SUMMARY | 2024-07-29 10:58 | XMS_ITS | Patient Health Record ---
Author Organization Marcos Newman MD Address [address] [place], [place] [id number] Care Team Providers Care Retail Operations Specialist Name Role Phone Marcos Newman Primary Care Provider [phone] ALLERGIES No Known Allergies RESULTS Component Value Reference Range Notes Complete Blood Count Auto Di ff Reviewed date:09/07/2023 04:59:24 PM Interpretation: Performing Lab:[facility], [address] [place] [phone] Notes/Report: White Blood Count 7.6 4.8-10.8 X10*3/uL [...] NRBC Abs Auto 0.000 0.0-0.012 X10*3/uL Comprehensive Circle. Panel Fa st Reviewed date:09/07/2023 04:59:41 PM Interpretation: Performing Lab:[facility], [address] [place] [phone] Notes/Report: Sodium 138 135-145 mmol/L Potassium 4.2 3.3-5.1 mmol/L Chloride 104 96-108 mmol/L Carbon Dioxide 27 22-29 mmol/L Anion Gap 11 12-20 Blood Urea Nitrogen 14 9-16 mg/dL Creatinine 0.96 0.5-1.4 mg/dL Estimated Glomerular Filt Rate > 60 NOTE: For -[place] individuals, multiply the result by 1.210. Chronic [...] Panel Reviewed date:09/06/2023 12:34:27 PM Interpretation: Performing Lab:[facility], [address] [place] [phone] Notes/Report: Triglycerides 183 <150 mg/dL Desirable Triglyceride: [...] (Free>4and<10) Reviewed date:09/06/2023 12:34:16 PM Interpretation: Performing Lab:[address] [address] Notes/Report: PSA,Total (Free>4and<10) 1.79 0.00-4.00 ng/mL A [...] t Reviewed date:09/06/2023 04:48:11 PM Interpretation: Performing Lab:[address] [address] Notes/Report: Urine, Clean Catch Color Urine Yellow Appearance Urine Clear PH 6.0 5.0-9.0 Glucose Urine UA Negative Negative mg/dL Urine Blood Negative Negative Specific [place] - Urine 1.020 1.005-1.025 Urine Protein Negative [...] date:09/21/2023 03:55:21 PM Interpretation: Performing Lab: Notes/Report: [address] [address] [address] Scan Report Signed Patient: Beka Bernabe Jr MR#: [id number] : 1965 Acct:[id number] Age/Sex: 58 / M ADM Date: 09/21/23 Loc: HO.CT Attending Dr: Rick Miller MD, FACS, [facility] Ordering Physician: Rick Miller MD, [facility] Date of Service: 09/21/23 Procedure(s): CT abdomen pelvis w IV con Accession Number(s): [id number] cc: Marcos Newman MD; Rick Miller MD, [facility] EXAMINATION: CT ABDOMEN AND PELVIS WITH CONTRAST [...] in OV> 09/21/23 1444 DD/ 0843 TD/TT: Press Leader: Pathology Reviewed date:07/22/2024 04:36:46 PM Interpretation: Performing Lab:[facility], [address] [place] [phone] Notes/Report: REASON FOR REFERRAL Reason KALINA Diagnosis 1 [...] 02:44:02 PM EST > info faxed , Lea Gomez 06/12/2024 03:25:14 PM EST > was [...] 05/12/2012 Administered Flu Vaccine Unknown 04/28/2014 Administered Dayana Flu Vaccine Unknown 04/22/2015 Administered [employer] Flu Vaccine Unknown 04/22/2016 Administered Given at wo rk. Fluarix Quadrivalent Unknown 04/28/2017 Administered At work Fluarix Quadrivalent IM Intramuscular 05/14/2018 Administe red Fluarix Quadrivalent Unknown 04/25/2019 Administered at work TDaP Unknown 06/04/2018 Administered pt was given the vaccine with the . Fluarix Quadrivalent Unknown 06/04/2020 Administered Covid Vaccine Unknown 08/15/2020 Administered MODERNA SARS-COV-2 Moderna Unknown 09/17/2020 Administered Fluarix Quadrivalent IM Intramuscular 04/19/2021 Administe red SOCIAL HISTORY Tobacco Use: Social History Observation [...] Notes Problem Tubular adenoma (D36.9) Active confirmed 712043711 Problem Body mass index (BMI) 35.0-35.9, adult (Z68.35) Active confirmed 935569528 Problem Essential hypertension (I10) Active confirmed 92035838 Problem Low HDL (under 40) (E78.6) Active confirmed 037319219 Problem Non morbid obesity due to excess calories (E66.09) Active confirmed 666495531 Problem KALINA (obstructive sleep apnea) (G47.33) Active confirmed 51510187 Problem BMI 36.0-36.9,adult (Z68.36) Active confirmed 163926979 VITAL SIGNS Blood pressure diastolic 96 mm [...] Location Date Provider Diagnosis Marcos Newman MD [address] [place] [id number] 09/13/2023 Marcos Newman Prediabetes R73.03 ; Annual physical exam Z00.00 ; Essential hypertension I10 ; Non morbid obesity due to excess calories E66.09 ; Colon cancer screening Z12.11 and Depression screening Z13.31 Marcos Newman MD [address] [place] [id number] 09/06/2023 Marcos Newman Blood tests for routine general physical examination Z00.00 ; Essential hypertension I10 and Low HDL (under 40) E78.6 Marcos Newman MD [address] [place] [id number] 06/05/2024 Marcos Newman Other specified coug h [...] (EKG) 08/21/2019 Next Appt Details Provider Name:Marcos quevedor, 09/11/2024 07:00:00 AM, [address] [place] [address], [address], [place], [phone], Provider Name:Marcos Marroquin ier, 09/18/2024 08:00:00 AM, [address] [place] [address], [address], [place], [place], [phone], Insurance Providers Payer Name Payer Address Payer Phone Subscriber Number Group Number Insured Name Patient Relationship to Insured Coverage Start Date Coverage End Date [employer] [address] [place], [place] [id number] [phone] [id number] Beka Bernabe Self - patient is the insured MEDICAL (GENERAL) HISTORY Medical History History ICD Code Colonoscopy 08/30/16 w/Dr. Lyman ss - repeat 5 years Tubular adenoma colonoscopy 03/13. due in 5 years
--- OUTSIDE RECORDS SUMMARY | 2024-07-29 10:58 | XMS_ITS ---
Author Organization Marcos Newman MD Address [address] [place] [phone] Care Team Providers Care Beauty Counselor Name Role Phone Marcos Newman Primary Care Provider [phone] ALLERGIES No Known Allergies REASON FOR VISIT [...] Marcos Newman MD [address] [place] [id number] 09/13/2023 Marcos Newman Prediabetes R73.03 ; Annual [...] Reason: Provider Name:Marcos bella, 09/11/2024 07:00:00 AM, [address] [place] [address], [address], [place], [phone], Provider Name:Marcos bella, 09/18/2024 08:00:00 AM, [address] [place] [address], [address], [place], [place], [phone], Progress Notes * Examination Category Sub-Category Detail [...]
--- OUTSIDE RECORDS SUMMARY | 2024-07-29 10:58 | XMS_ITS ---
Author Organization Marcos Newman MD Address [address] [place] [phone] Care Team Providers Care Machine Stuffer Automatic Name Role Phone Marcos Newman Primary Care Provider ALLERGIES No Known Allergies REASON FOR REFERRAL [...] Date Provider Diagnosis Marcos Newman MD [address] [place], [place] [phone] 06/05/2024 Marcos Newman Other specified coug h [...] Treatment Notes Assessment Notes Adverse effect of ivrzjcsqnbp-ytqmfamxfe-btnqlv inhibitors, initial encounter patient verbalized understanding will [...] 07:00:00 AM, [address], [address], [place], [place], [phone], Provider Name:Marcos Marroquin ier, 09/18/2024 08:00:00 AM, [address], [address], [place], [place], [phone], Progress Notes * Examination Category Sub-Category Detail [...]
--- OUTSIDE RECORDS SUMMARY | 2024-07-29 10:58 | XMS_ITS ---
Author Organization Marcos Newman MD Address [address] [place] [phone] Care Team Providers Care Infrastructure Manager Name Role Phone Marcos Newman Primary Care Provider RESULTS Component Value Reference Range Notes Complete Blood Count Auto Di ff Reviewed date:09/07/2023 04:59:24 PM Interpretation: Performing Lab:[facility], [address] [place] [address] [place] [address] Notes/Report: White Blood Count 7.6 4.8-10.8 X10*3/uL [...] NRBC Abs Auto 0.000 0.0-0.012 X10*3/uL Comprehensive [place]. Panel Fa st Reviewed date:09/07/2023 04:59:41 PM Interpretation: Performing Lab:[facility], [address] [place] [phone] Notes/Report: Sodium 138 135-145 mmol/L Potassium 4.2 3.3-5.1 mmol/L Chloride 104 96-108 mmol/L Carbon Dioxide 27 22-29 mmol/L Anion Gap 11 12-20 Blood Urea Nitrogen 14 9-16 mg/dL Creatinine 0.96 0.5-1.4 mg/dL Estimated Glomerular Filt Rate > 60 NOTE: For -[place] individuals, multiply the result by 1.210. Chronic [...] Panel Reviewed date:09/06/2023 12:34:27 PM Interpretation: Performing Lab:[facility], [address] [place] [phone] Notes/Report: Triglycerides 183 <150 mg/dL Desirable Triglyceride: [...] (Free>4and<10) Reviewed date:09/06/2023 12:34:16 PM Interpretation: Performing Lab:[address] [address] Notes/Report: PSA,Total (Free>4and<10) 1.79 0.00-4.00 ng/mL A [...] t Reviewed date:09/06/2023 04:48:11 PM Interpretation: Performing Lab:[address] [address] Notes/Report: Urine, Clean Catch Color Urine Yellow Appearance Urine Clear PH 6.0 5.0-9.0 Glucose Urine UA Negative Negative mg/dL Urine Blood Negative Negative Specific [place] - Urine 1.020 1.005-1.025 Urine Protein Negative [...] Location Date Provider Diagnosis Marcos Newman MD [address] [place] [address] [place] [phone] 09/06/2023 Marcos Newman Blood tests for routine [...] Details Provider Name:Marcos bella, 09/11/2024 07:00:00 AM, [address] [place] [address], Suite [facility], [place], [place], [phone], Provider Name:Marcos bella, 09/18/2024 08:00:00 AM, [address] [place] [address], Suite [facility], [place], [place], [phone],
--- OUTSIDE RECORDS SUMMARY | 2024-07-29 10:59 | XMS_ITS | Patient Health Record ---
Author Organization [facility] Address [address] [place] [address] Care Team Providers Care Rejogger Name Role Phone Marcos Newman MD Primary Care Provider Herman Contreras Unavailable [phone] ALLERGIES No Known Allergies REASON FOR REFERRAL [...] malignant neoplasm of colon (Z12.11) Active confirmed 408982898 Problem Encounter for screening for malignant neoplasm of rectum (Z12.12) Active confirmed Screening fo r malignant neoplasm of rectum (653403219) Problem Preprocedural examination (Z01.818) Active confirmed 16014124 Problem History of adenomatous polyp of colon (Z86.010) Active confirmed History of adenomatous polyp of colon (089032159) Problem Encounter for other preprocedural examination (Z01.818) Active confirmed Pre-procedure evaluation check (855774634) Problem History of colon polyps (Z86.010) Active confirmed History of polyp of colon (617601038) Problem Diverticulosis of colon (K57.30) Active confirmed Diverticulosi s of colon (413164988) PLAN OF TREATMENT Future Test Test Name Order Date COLONOSCOPY 06/08/2016 COLONOSCOPY 01/11/2022 Insurance Providers Payer Name Payer Address Payer Phone Subscriber Number Group Number Insured Name Patient Relationship to Insured Coverage Start Date Coverage End Date [facility] [address] [place], [place] [id number] BRIANNA NAYAK Self - patient is the insured MEDICAL (GENERAL) HISTORY Medical History History ICD Code Hypertension Denies [place],DM,CVA,Lung disease,renal dise ase COVID positive x 2 in 07/2019 and 11/2021 Colonoscopy 08/2016 1.5cm tubular adenoma removed Surgical History Surgery Date(Month/Year) Umbilical hernia repair x 2
== END 2024-07-29 10:32 | disposition home or self-care (01) ==
PROVIDERS: PCP Internal Medicine; Visit Provider Surgery
DX: Z98.890 Other specified postprocedural states (principal); Z86.018 Personal history of other benign neoplasm
CPT/HCPCS: 99024

== ENCOUNTER → 2024-07-29 10:16 | Outpatient (BNVA) | payer BC, SELFPAY | PROVIDERS: PCP Internal Medicine; Visit Provider Surgery ==

== ENCOUNTER 2024-08-28 10:15 | Outpatient (REF) | payer BC, SELFPAY ==
--- OUTSIDE RECORDS SUMMARY | 2024-08-28 10:20 | XMS_ITS | Continuity of Care Document ---
Author Name [facility] Organization [facility] Care Team Providers Care Internet Assessor Name Role Phone [facility] Unavailable Unavailable Problems Combined list of problems [...] Site Reaction Lot Number CVX Code Drug Elastic Attacher Zigzag Status Comments Source influenza, injectable, quadrivalent- pf 2021 [id number] 150 GlaxoSmithKli ne complet ed influenza , injectabl e, quadrival ent-pf 05/06/22 Given Ambulat ory Pharmac y influenza, seasonal, injectable 2020 [id number] 141 GlaxoSmithKli ne complet ed influenza , seasonal, injectabl e 04/19/21 Given Ambulat ory Pharmac y COVID Vaccine Moderna 2020 [id number] complet ed COVID Vaccine Moderna 09/17/20 Given Ambulat ory Pharmac y COVID Vaccine Moderna 2020 [id number] 207 complet ed COVID Vaccine Moderna 08/15/20 Given Ambulat ory Pharmac y influenza, injectable, quadrivalent- pf 2019 [id number] 150 Seqirus complet ed influenza , injectabl e, quadrival ent-pf 06/01/20 Given Ambulat ory Pharmac y poliovirus vaccine, inactivated 2019 [id number] 10 sanofi pasteur complet ed polioviru s vaccine, inactivat ed 09/15/19 Given Ambulat ory Pharmac y typhoid Vi capsular polysaccharid e vac 2019 [id number] 101 sanofi pasteur complet ed typhoid Vi capsular polysacch aride vac 09/15/19 Given Ambulat ory Pharmac y anthrax vaccine 2019 [id number] 24 [employer] complet ed anthrax vaccine 09/15/19 Given Ambulat ory Pharmac y anthrax vaccine 2019 [id number] 24 [employer] complet ed anthrax vaccine 08/03/19 Given Ambulat ory Pharmac y influenza, injectable, quadrivalent- pf 2018 [id number] 150 Seqirus complet ed influenza , injectabl e, quadrival ent-pf 06/11/19 Given Ambulat ory Pharmac y tuberculin purified protein derivative 2018 [id number] 96 sanofi pasteur complet ed tuberculi n purified protein derivativ e 09/04/18 Given Ambulat ory Pharmac y tetanus, diphtheria, acellular pertu is 2017 [id number] 115 sanofi pasteur complet ed tetanus, diphtheri a, acellular pertussis 06/04/18 Given Ambulat ory Pharmac y tetanus toxoid, reduced diphtheria toxoid, and acellular pertu is vaccine, adsorbed 4 2017 [id number] 115 Sanofi Pasteur ([facility]) complet ed tetanus toxoid, reduced diphtheri a toxoid, and acellular pertussis vaccine, adsorbed DoD influenza, seasonal, injectable 2017 [id number] 141 GlaxoSmithKli ne complet ed influenza , seasonal, injectabl e 05/14/18 Given Ambulat ory Pharmac y Influenza, seasonal, injectable 1 2017 [id number] 141 [facility] ([facility]) complet ed Influenza , seasonal, injectabl e DoD influenza, injectable, quadrivalent 2016 [id number] 158 [employer] comple t ed influenza , injectabl e, quadrival ent 05/26/17 Given Ambulat ory Pharmac y influenza, injectable, quadrivalent, contains preservative 0 2016 [id number] 158 (IDB) complet ed influenza , injectabl e, quadrival ent, contains preservat carlitos DoD measles/mumps /rubella virus vaccine 2016 [id number] 03 Merck & Company Inc complet ed measles/m umps/rube lla virus vaccine 08/25/16 Given Ambulat ory Pharmac y measles, mumps and rubella virus vaccine 2 2016 [id number] 03 Merck (MSD) complet ed measles, mumps and rubella virus vaccine DoD measles/mumps /rubella virus vaccine 2016 [id number] 03 Merck & Company Inc complet ed measles/m umps/rube lla virus vaccine 07/28/16 Given Ambulat ory Pharmac y measles, mumps and rubella virus vaccine 1 2016 [id number] 03 Merck (MSD) complet ed measles, mumps and rubella virus vaccine DoD influenza, seasonal, injectable 2015 [id number] 141 Seqirus complet ed influenza , seasonal, injectabl e 05/07/16 Given Ambulat ory Pharmac y Influenza, seasonal, injectable 1 2015 [id number] 141 Seqirus (SEQ) comple t ed Influenza , seasonal, injectabl e DoD influenza, seasonal, injectable-pf 2014 [id number] 140 CSL [employer]ring complet ed influenza , seasonal, injectabl e-pf 04/18/15 Given Ambulat ory Pharmac y Influenza, seasonal, injectable, preservative free 0 2014 [id number] 140 [employer] (L) complet ed Influenza , seasonal, injectabl e, preservat carlitos free DoD influenza, seasonal, injectable-pf 2013 [id number] 140 CSL [employer]ring complet ed influenza , seasonal, injectabl e-pf 04/12/14 Given Ambulat ory Pharmac y Influenza, seasonal, injectable, preservative free 1 2013 [id number] 140 CS [employer]otherap[employer] Inc. (CSL) complet ed [...] intraderm al DoD Influenza, injectable, MDCK-pf 2012 [id number] 153 Novartis Pharmaceutica ls complet ed Influenza , injectabl e, MDCK-pf 06/08/13 Given Ambulat ory Pharmac y Influenza, injectable, Madin Keo Canine Kidney, preservative free 0 2012 [id number] 153 Novartis Pharmaceutica l Ac. (NOV) complet ed Influenza , injectabl e, Madin Keo Canine Kidney, preservat carlitos free DoD tuberculin purified protein derivative 2012 zzLef t Arm [id number] 96 sanofi pasteur complet ed Patient Tolerance : Negative Ambulat ory Pharmac y tuberculin skin test; purified protein derivative solution, intradermal 0 2012 ERICA FORDE [id number] 96 Sanofi Pasteur ([facility]) complet ed tuberculi n skin test; purified protein derivativ e solution, intraderm al DoD influenza, seasonal, injectable-pf 2011 [id number] 140 CSL [employer]ring complet ed influenza , seasonal, injectabl e-pf 05/18/12 Given Ambulat ory Pharmac y Influenza, seasonal, injectable, preservative free 17 2011 [id number] 140 [employer] (CSL) complet ed Influenza , seasonal, injectabl e, preservat carlitos free DoD influenza virus vaccine, live 2010 [id number] 111 [employer] comple t ed influenza virus vaccine, live 06/11/11 Given Ambulat ory Pharmac y influenza virus vaccine, live, attenuated, for intranasal use 0 2010 [id number] 111 [employer] Inc. (MED) complet ed influenza virus vaccine, live, attenuate d, for intranasa l use DoD influenza virus vaccine, live 2009 [id number] 111 [employer] comple t ed influenza virus vaccine, live 05/08/10 Given Ambulat ory Pharmac y influenza virus vaccine, live, attenuated, for intranasal use 1 2009 [id number] 111 [employer] (MED) complet ed influenza virus vaccine, live, attenuate d, for intranasa l use DoD Novel influenza-H1N 1-09, injectable 2009 [id number] 1 127 Novartis Pharmaceutica complet ed Novel influenza -P4U9-42, injectabl e 08/15/09 Given Ambulat ory Pharmac y Novel influenza-H1N 1-09, injectable 1 2009 [id number] 1 127 Novartis Pharmaceutica l Ac. (NOV) complet ed Novel influenza -P0W5-43, injectabl e DoD influenza virus vaccine, live 2008 [id number] 111 Medimmune Inc comple t ed influenza virus vaccine, live 05/08/09 Given Ambulat ory Pharmac y influenza virus vaccine, live, attenuated, for intranasal use 1 2008 [id number] 111 [employer] Inc[employer] (MED) complet ed influenza virus vaccine, live, attenuate d, for intranasa l use DoD influenza virus vaccine,split 2007 [id number] 15 GlaxoSmithKli ne complet ed influenza virus vaccine,s plit 06/28/08 Given Ambulat ory Pharmac y influenza virus vaccine, split virus (incl. purified surface antigen)-reti red CODE 1 2007 [id number] 15 [facility] (B) complet ed influenza virus vaccine, split virus (incl. purified surface antigen)- retired CODE [facility] tetanus, diphtheria, acellular pertu is 2007 [id number] 115 sanofi pasteur complet ed tetanus, diphtheri a, acellular pertussis 02/26/08 Given Ambulat ory Pharmac y typhoid Vi capsular polysaccharid e vac 2007 [id number] 101 sanofi pasteur complet ed typhoid Vi capsular polysacch aride vac 02/26/08 Given Ambulat ory Pharmac y typhoid Vi capsular polysaccharid e vaccine 1 2007 [id number] 101 Sanofi Pasteur ([facility]) complet ed typhoid Vi capsular polysacch aride vaccine DoD tetanus toxoid, reduced diphtheria toxoid, and acellular pertu is vaccine, adsorbed 1 2007 [id number] 115 Sanofi Pasteur ([facility]) complet ed tetanus toxoid, reduced diphtheri a toxoid, and acellular pertussis vaccine, adsorbed DoD influenza virus vaccine,split 2007 [id number] [id number] 15 GlaxoSmithKli ne complet ed influenza virus vaccine,s plit 10/06/07 Given Ambulat ory Pharmac y influenza virus vaccine, split virus (incl. purified surface antigen)-reti red CODE 1 2007 [id number] 9AA 15 [facility] ([facility]) complet ed influenza virus vaccine, split virus (incl. purified surface antigen)- retired CODE DoD influenza virus vaccine,split 2005 [id number] 15 Unknown complet ed influenza virus vaccine,s plit 06/23/06 Given Ambulat ory Pharmac y influenza virus vaccine, split virus (incl. purified surface antigen)-reti red CODE 1 2005 [id number] 15 Other (OTH) complet ed influenza virus vaccine, split virus (incl. purified surface antigen)- retired CODE [facility] tetanus-dipht h toxoids (Td) adult/adol 2005 [id number] 09 sanofi pasteur complet ed tetanus-d iphth toxoids (Td) adult/ado l 01/13/06 Given Ambulat ory Pharmac y typhoid vaccine, parenteral 2005 [id number] 41 sanofi pasteur complet ed typhoid vaccine, parentera l 01/13/06 Given Ambulat ory Pharmac y tetanus and diphtheria toxoids, adsorbed, preservative free, for adult use (2 Lf of tetanus toxoid and 2 Lf of diphtheria toxoid) 1 2005 [id number] 09 Sanofi Pasteur ([facility]) complet ed tetanus and diphtheri a toxoids, adsorbed, preservat carlitos free, for adult use (2 Lf of tetanus toxoid and 2 Lf of diphtheri a toxoid) DoD typhoid vaccine, parenteral, other than acetone-kille d, dried 1 2005 [id number] 41 Sanofi Pasteur ([facility]) complet ed typhoid vaccine, parentera l, other than acetone-k illed, dried DoD influenza virus vaccine,split 2004 [id number] 15 sanofi pasteur complet ed influenza virus vaccine,s plit 06/25/05 Given Ambulat ory Pharmac y influenza virus vaccine, split virus (incl. purified surface antigen)-reti red CODE 1 2004 [id number] 15 Sanofi Pasteur ([facility]) complet ed influenza virus vaccine, split virus (incl. purified surface antigen)- retired CODE [facility] hepatitis B vaccine, adult dosage 0 2004 43 () Not Given hepatitis B vaccine, adult dosage DoD varicella virus vaccine 0 2004 21 () Not Given varicella virus vaccine DoD influenza virus vaccine, live 2004 [id number] 111 [employer] comple t ed influenza virus vaccine, live 08/15/04 Given Ambulat ory Pharmac y influenza virus vaccine, live, attenuated, for intranasal use 0 2004 [id number] 111 [employer] Inc[employer] (MED) complet ed influenza virus vaccine, live, attenuate d, for intranasa l use DoD typhoid vaccine, parenteral 2003 [id number] 41 sanofi pasteur complet ed typhoid vaccine, parentera l 01/06/04 Given Ambulat ory Pharmac y typhoid vaccine, parenteral, other than acetone-kille d, dried 0 2003 [id number] 41 Sanofi Pasteur ([facility]) complet ed typhoid vaccine, parentera l, other than acetone-k illed, dried DoD influenza virus vaccine, whole virus 2003 [id number] 16 sanofi pasteur complet ed influenza virus vaccine, whole virus 09/12/03 Given Ambulat ory Pharmac y influenza virus vaccine, whole virus 0 2003 [id number] 16 Sanofi Pasteur ([facility]) complet ed influenza virus vaccine, whole virus DoD tuberculin purified protein derivative 2002 [id number] 96 sanofi pasteur complet ed tuberculi n purified protein derivativ e 01/10/03 Given Ambulat ory Pharmac y influenza virus vaccine, whole virus 2001 [id number] 16 sanofi pasteur complet ed influenza virus vaccine, whole virus 05/10/02 Given Ambulat ory Pharmac y influenza virus vaccine, whole virus 0 2001 [id number] 16 Sanofi Pasteur ([facility]) complet ed influenza virus vaccine, whole virus DoD meningococcal polysaccharid e (MPSV4) 2001 [id number] 32 sanofi pasteur complet ed meningoco ccal polysacch aride (MPSV4) 12/25/01 Given Ambulat ory Pharmac y tuberculin purified protein derivative 2001 [id number] 96 sanofi pasteur complet ed tuberculi n purified protein derivativ e 12/25/01 Given Ambulat ory Pharmac y meningococcal polysaccharid e vaccine (MPSV4) 0 2001 [id number] 32 Sanofi Pasteur ([facility]) complet ed meningoco ccal polysacch aride vaccine (MPSV4) DoD influenza virus vaccine, whole virus 2000 [id number] 16 sanofi pasteur complet ed influenza virus vaccine, whole virus 06/08/01 Given Ambulat ory Pharmac y influenza virus vaccine, whole virus 0 2000 [id number] 16 Sanofi Pasteur ([facility]) complet ed influenza virus vaccine, whole virus DoD tuberculin purified protein derivative 2000 96 complet ed tuberculi n purified protein derivativ e 08/11/00 Given Ambulat ory Pharmac y influenza virus vaccine, whole virus 2000 [id number] 16 [facility] complet ed influenza virus vaccine, whole virus 08/11/00 Given Ambulat ory Pharmac y influenza virus vaccine, whole virus 0 2000 [id number] 16 [facility] complet ed influenza virus vaccine, whole virus DoD tuberculin purified protein derivative 2000 [id number] 96 [facility] complet ed tuberculi n purified protein derivativ e 07/28/00 Given Ambulat ory Pharmac y tuberculin purified protein derivative 1998 [id number] 96 [facility] complet ed tuberculi n purified protein derivativ e 05/08/99 Given Ambulat ory Pharmac y influenza virus vaccine, whole virus 19983338 [id number] 16 [facility] complet ed influenza virus vaccine, whole virus 05/08/99 Given Ambulat ory Pharmac y influenza virus vaccine, whole virus 0 19982628 [id number] 16 [facility] ([facility]) complet ed influenza virus vaccine, whole virus DoD typhoid vaccine, live, oral 1998 25 [employer] complet ed typhoid vaccine, live, oral 12/03/98 Given Ambulat ory Pharmac y typhoid vaccine, live, oral 0 1998 25 [employer] (BP) complet ed typhoid vaccine, live, oral DoD measles, mumps and rubella virus vaccine 0 1998 03 () Not Given measles, mumps and rubella virus vaccine DoD influenza virus vaccine, whole virus 19976598 [id number] 16 [facility] complet ed influenza virus vaccine, whole virus 05/09/98 Given Ambulat ory Pharmac y influenza virus vaccine, whole virus 0 19974818 [id number] 16 [facility] ([facility]) complet ed influenza virus vaccine, whole virus DoD tuberculin purified protein derivative 1997 96 [facility] complet ed tuberculi n purified protein derivativ e 05/08/98 Given Ambulat ory Pharmac y hepatitis A adult vaccine 1997 [id number] 52 [employer]ck & Company Inc complet ed hepatitis A adult vaccine 05/08/98 Given Ambulat ory Pharmac y hepatitis A vaccine, adult dosage 2 1997 [id number] 52 Merck (MSD) complet ed hepatitis A vaccine, adult dosage DoD influenza virus vaccine, whole virus 19977345 [id number] 16 [employer] complet ed influenza virus vaccine, whole virus 08/15/97 Given Ambulat ory Pharmac y hepatitis B adult vaccine 1997 [id number] 43 [employer] complet ed hepatitis B adult vaccine 08/15/97 Given Ambulat ory Pharmac y meningococcal polysaccharid e (MPSV4) 1997 [id number] 32 [employer] complet ed meningoco ccal polysacch aride (MPSV4) 08/15/97 Given Ambulat ory Pharmac y hepatitis A adult vaccine 1997 [id number] 52 [employer] complet ed hepatitis A adult vaccine 08/15/97 Given Ambulat ory Pharmac y influenza virus vaccine, whole virus 0 19975075 [id number] 16 [employer] (Inactive) ([place]) complet ed influenza virus vaccine, whole virus DoD meningococcal polysaccharid e vaccine (MPSV4) 0 1997 [id number] 32 [employer] (CON) complet ed meningoco ccal polysacch aride vaccine (MPSV4) DoD hepatitis B vaccine, adult dosage 3 1997 [id number] 43 Merck (MSD) complet ed hepatitis B vaccine, adult dosage DoD hepatitis A vaccine, adult dosage 1 1997 [id number] 52 Merck (MSD) complet ed hepatitis A vaccine, adult dosage DoD hepatitis B adult vaccine 1996 [id number] 43 [employer] complet ed hepatitis B adult vaccine 08/17/96 Given Ambulat ory Pharmac y hepatitis B vaccine, adult dosage 1 1996 [id number] 43 [employer] (CON) complet ed hepatitis B [...] ory Pharmac y yellow fever vaccine 1995 [id number] 37 [employer] complet ed yellow fever [...] toxoid) DoD yellow fever vaccine 0 1995 [id number] 37 [employer] (CON) complet ed yellow fever [...] trivalent polioviru s vaccine, live, oral DoD Encounters Combined list of: 1) Encounters from [facility] Affairs facilities going backup to the last 18 months, not all [facility] inpatient encounters are included; 2) Encounters from 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 [employer] ANIRUDHYovana SYLVIA Green 09/01 Released w/o Limitations [facility] OUTPATIENT [id number] Notes Entered by: YASMINE ALCAZAR V 30 Oct 2018 0852 ------- ------- ------- ------- -- MEHP In-Proc sujata KIMBERLI YASMINE Finnegan 10/30 Released w/o Limitations [address] [place] [address]([facility]) Theater Facility OUTPATIENT [id number] Theater Provider 05/10 Released w/o Limitations Theater Facilit y 8344R-[id number] AMDS Between Visit [id number] 10/21 Discharge Disposition: Home or Self Care 8344R-4 39 AM[facility] 8344R-439 AMDS Dental [id number] DONTA AMMOND 05/16 Discharge Disposition: Home or Self Care 8344R-4 39 AMDS 8344R-439 AMDS Between Visit [id number] 07/30 Discharge Disposition: Home or Self Care 8344R-4 39 AMDS 8344R-439 AMDS Care Not Rendered [id number] 08/02 Discharge Disposition: Home or Self Care 8344R-4 39 AMDS 8344R-439 [facility] Preclinic [id number] 08/22 8344R-4 39 AMDS Procedures Combined list of: 1) Procedures from 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 Procedure Procedure Type Code Date Perfomer Comments Sourc e Skin Test Anergy Tuberculin Intradermal Skin Test Anergy Tuberculin Intradermal 24750 3 ERICA FORDE H to Mercedes forearm DoD SKIN TEST; TUBERCULOSIS, INTRADERMAL 3 DoD No data available for this section Ambulatory [...] Plan No data available for this section 08/28/2024 Ambulatory Pharmacy Functional Status Combined list of recent functional and cognitive assessments recorded at Department of Defense and [facility] ([facility]).[facility] Functional Hancock Measurement (FIM) Scale: 1 = Total Assistance (Subject = 0% +), 2 = Maximal Assistance (Subject = 25% +), 3 = Moderate Assistance (Subject = 50% +), 4 = Minimal Assistance (Subject = 75% +), 5 = Supervision, 6 = Modified Hancock (Device), 7 = Complete Hancock (Timely, Safely). Assessment Date/Time Source Assessment Type Assessment Skill Assessment Score Assessment Details No data available for this section
[2024-08-28 10:54] LABS: Appearance Urine Clear; Color Urine Yellow; Glucose Urine UA Negative (Negative); Leukocyte Esterase Urine Negative (Negative); Nitrite Urine Negative (Negative); PH 5.5 (5.0-9.0); Urine Blood Negative (Negative); Urine Ketones Negative (Negative); Urine Protein Negative (Neg-Trace)
== END 2024-08-28 10:16 | disposition home or self-care (01) ==
LOC: HO.LNP 10:15
PROVIDERS: Visit Provider Internal Medicine
DX: K59.00 Constipation, unspecified (principal)
CPT/HCPCS: 81003; 87086

== ENCOUNTER 2024-09-11 10:26 | Outpatient (REF) | payer BC, SELFPAY ==
[2024-09-11 10:37] LABS: MANUAL DIFF FLAG NO
[2024-09-11 10:55] LABS: Appearance Urine Clear; Color Urine Yellow; Glucose Urine UA Negative (Negative); Leukocyte Esterase Urine Negative (Negative); Nitrite Urine Negative (Negative); PH 5.5 (5.0-9.0); Specific Gravity - Urine 1.025 (1.005-1.025); Urine Blood Negative (Negative); Urine Ketones Negative (Negative); Urine Protein Negative (Neg-Trace)
[2024-09-11 10:57] LABS: Basophils Percent Auto 0.4 % (0-2); Eosinophils Absolute Auto 0.4 X10*3/uL (0.0-0.4); Eosinophils Percent Auto 4.6 % (0-4); Hematocrit 46.3 % (42.0-52.0); Hemoglobin 15.5 g/dl (14.0-18.0); Imm Gran Abs Auto 0.03 X10*3/uL (0.00-0.03); Imm Gran Pct Auto 0.4 % (0.0-0.4); Lymphocytes Absolute Auto 1.9 X10*3/uL (1.2-4.9); Lymphocytes Percent Auto 24.2 % (20-40); Mean Corpuscular HGB Conc 33.5 g/dl (31.0-36.0); Mean Corpuscular Hemoglobin 28.1 pg (27.0-33.0); Mean Corpuscular Volume 83.9 fL (80.0-98.0); Monocytes Absolute Auto 0.9 X10*3/uL (0.1-1.2); Monocytes Percent Auto 11.2 % (2-11); Neutrophils Absolute Auto 4.8 x10*3/uL (2.0-8.3); Neutrophils Percent Auto 59.2 % (45-73); Platelet Count 244 X10*3/uL (160-400); Red Blood Count 5.52 X10*6/uL (4.60-5.80); Red Cell Distribution Width 12.7 % (11.0-16.0)
[2024-09-11 10:58] LABS: Bacteria Urine None Seen (None Seen); Hyaline Casts Urine 0-2 /LPF (0-2); RBC Urine 0-2 /HPF (0-2); Squamous Epithelial Cell Urine 0-2 /HPF (0-2); WBC Urine 0-5 /HPF (0-5)
[2024-09-11 11:18] LABS: Alanine Aminotransferase 32 U/L (0-40); Albumin Level 3.8 g/dL (3.5-5.0); Anion Gap 10 (12-20); Aspartate Amino Transferase 30 U/L (5-37); Bilirubin Total 0.5 mg/dL (0.0-1.0); Blood Urea Nitrogen 21 mg/dL (9-16); Carbon Dioxide 29 mmol/L (22-29); Chloride 106 mmol/L (96-108); Cholesterol 171 mg/dL (<200); Estimated Glomerular Filt Rate > 60; Glucose Fasting 116 mg/dL (60-99); HDL Cholesterol 33 mg/dL (>40); LDL Cholesterol Calculated 107 mg/dL (<100); Potassium 4.1 mmol/L (3.3-5.1); Sodium 141 mmol/L (135-145); Total Protein 6.9 g/dL (6.5-8.0); Triglycerides 157 mg/dL (<150)
[2024-09-11 11:21] LABS: Alkaline Phosphatase 53 U/L (39-117)
[2024-09-11 11:36] LABS: PSA,Total (Free>4and<10) 6.76 ng/mL (0.00-4.00)
--- OUTSIDE RECORDS SUMMARY | 2024-09-11 11:37 | XMS_ITS ---
Author Organization Marcos Newman MD Address [address] [place] [phone] Care Team Providers Care Hide Handler Name Role Phone Marcos Newman Primary Care Provider [phone] Results Component Value Reference Range Notes Complete Blood Count Auto Di ff (Not yet reviewed by provider) Interpretation: Performing Lab:[facility], [address] [place] [address] [place] [address] Notes/Report: White Blood Count 8.0 4.8-10.8 X10*3/uL [...] NRBC Abs Auto 0.000 0.0-0.012 X10*3/uL Comprehensive [place]. Panel Fa st (Not yet reviewed by provider) Interpretation: Performing Lab:[facility], [address] [place] [phone] Notes/Report: Sodium 141 135-145 mmol/L Potassium 4.1 [...] Alkaline Phosphatase 53 39-117 U/L Lipid Panel (Not yet review ed by provider) Interpretation: Performing Lab:[facility], [address] [place] [phone] Notes/Report: Triglycerides 157 <150 mg/dL Desirable Triglyceride: [...] low results in patients with liver disease. UA ClnCatch+Micro w/rflx Cul t (Not yet reviewed by provider) Interpretation: Performing Lab:[facility], [address] [place] [phone] Notes/Report: Urine, Clean Catch Color Urine Yellow Appearance Urine Clear PH 5.5 5.0-9.0 Glucose Urine UA Negative Negative mg/dL Urine Blood Negative Negative Specific [place] - Urine 1.025 1.005-1.025 Urine Protein Negative Neg-Trace mg/dL Urine Ketones Negative Negative mg/dL Nitrite Urine Negative Negative Leukocyte Esterase Urine Negative Negative RBC Urine 0-2 0-2 /HPF WBC Urine 0-5 0-5 /HPF Squamous Epithelial Cell Urine 0-2 0-2 /HPF Bacteria Urine None Seen None Seen Hyaline Casts Urine 0-2 0-2 /LPF REASON FOR VISIT yearly fasting labs Encounters Encounter Location Date Provider Diagnosis Marcos Newman MD [address] [place] [address] [address] [place], [place] [phone] 09/11/2024 Marcos Newman Blood tests for routine [...] 40) (ICD-10 - E78.6) Plan Of Treatment Pending Test Test Name Order Date Complete Blood Count Auto Diff Comprehensive [place]. Panel Fast Lipid Panel 09/11/2024 PSA,Total (Free>4and<10) 09/11/2024 UA ClnCatch+Micro w/rflx Cult 09/11/2024 Next Appt Details Provider Name:Marcos Marroquin ier, 09/18/2024 08:00:00 AM, [address], [address], [place], [phone], Progress Notes * Beka BERNABE TDOB: [birth year] (59 yo M)Acc No.[id number]:09/11/2024 Progress Note Patient:?Beka BERNABE T Provider:?Marcos Newman MD :1965???Age:59 Y???Sex:Male Jhonny e:09/11/2024 Address:[address] [place] [address] , [place] Subjective: * Chief Complaints: * ???1. Yearly fasting labs. * Medical History:? Objective: * Vitals:? Assessment: * Assessment: 1.?Blood tests for routine g eneral physical examination - Z00.00 (Primary)???2.?Essential hypertension - I10???3.?Low HDL (under 40) - E78.6??? Plan: * Treatment: 2.?Essential hypertension?LAB: Complete Blood Count Auto Diff (Collection Date & Time - 09/11/2024 07:00 AM) ?LAB: Comprehensive [place]. Panel Fast (Collection Date & Time - 09/11/2024 07:00 AM) ?LAB: Lipid Panel (Collection Date & Time - 09/11/2024 07:00 AM) ?LAB: PSA,Total (Free>4and<10) ?LAB: UA ClnCatch+Micro w/rflx Cult (Collection Date & Time - 09/11/2024 07:00 AM) 3.?Low HDL (under 40)?LAB: Complete Blood Count Auto Diff (Collection Date & Time - 09/11/2024 07:00 AM) ?LAB: Comprehensive [place]. Panel Fast (Collection Date & Time - 09/11/2024 07:00 AM) ?LAB: Lipid Panel (Collection Date & Time - 09/11/2024 07:00 AM) ?LAB: PSA,Total (Free>4and<10) ?LAB: UA ClnCatch+Micro w/rflx Cult (Collection Date & Time - 09/11/2024 07:00 AM) * Procedure Codes:?34597 VENIP UNCT, ROUTINE* * * The named appointment provid er may or may not be the originator of this progress note, and it is not deemed complete until electronically signed by the appointment provider. Sign off status: Pending * Provider:?Marcos Newman MD Date:?0 09/11/2024 Generated for Carter taylor/Elaine/Prabhakaritting on:?09/11/2024 11:37 AM EST
--- OUTSIDE RECORDS SUMMARY | 2024-09-11 11:37 | XMS_ITS | Patient Health Record ---
Author Organization [facility] Address [address] [place] [address] Care Team Providers Care Facilities Assistant Name Role Phone Marcos Newman MD Primary Care Provider Herman Contreras Unavailable [phone] ALLERGIES No Known Allergies REASON FOR REFERRAL [...] malignant neoplasm of colon (Z12.11) Active confirmed [id number] Problem Encounter for screening for malignant neoplasm of rectum (Z12.12) Active confirmed Screening fo r malignant neoplasm of rectum (233424721) Problem Preprocedural examination (Z01.818) Active confirmed [id number] Problem History of adenomatous polyp of colon (Z86.010) Active confirmed History of adenomatous polyp of colon (491789231) Problem Encounter for other preprocedural examination (Z01.818) Active confirmed Pre-procedure evaluation check (122174588) Problem History of colon polyps (Z86.010) Active confirmed History of polyp of colon (743427330) Problem Diverticulosis of colon (K57.30) Active confirmed Diverticulosi s of colon (437509760) PLAN OF TREATMENT Future Test Test Name Order Date COLONOSCOPY 06/08/2016 COLONOSCOPY 01/11/2022 Insurance Providers Payer Name Payer Address Payer Phone Subscriber Number Group Number Insured Name Patient Relationship to Insured Coverage Start Date Coverage End Date [facility] [address] [place], [place] [id number] BRIANNA NAYAK Self - patient is the insured MEDICAL (GENERAL) HISTORY Medical History History ICD Code Hypertension Denies NM,DM,CVA,Lung disease,renal dise ase COVID positive x 2 in 07/2019 and 11/2021 Colonoscopy 08/2016 1.5cm tubular adenoma removed Surgical History Surgery Date(Month/Year) Umbilical hernia repair x 2
--- OUTSIDE RECORDS SUMMARY | 2024-09-11 11:37 | XMS_ITS ---
Author Organization Marcos Newman MD Address [address] [place], [place] [phone] Care Team Providers Care Cloth Folder Machine Name Role Phone Marcos Newman Primary Care Provider Reason For Referral Reason UTI Diagnosis 1 Acute UTI (N39.0) Referral Organization Marcos Newman MD Referring Provider First Name Marcos Referring Provider Last Name Trent Referring Provider Speciality Internal M edicine Referred Provider Gavin Fischer Referred Provider Specialty Urology General Notes Lea Gomez 0 08/22/2024 01:16:10 PM >info faxed, Lea Gomez 09/04/2024 11:17:27 AM > per office referral refaxed Referral Priority Routine REASON FOR VISIT UTI issues Encounters Encounter Location Date Provider Diagnosis Marcos Newman MD [address] [facility] [address] [place], [place] [phone] 08/12/2024 Marcos Newman Plan Of Treatment Referrals Referral Date Details 08/12/2024 08/12/2024, UTI, Mariel wojciech Fischer Next Appt Details Provider Name:Marcos Marroquin ier, 09/18/2024 08:00:00 AM, [address] [facility], [address], [place], [place], [phone], Progress Notes * Beka BERNABE TDOB: [birth year] (59 yo M)Acc No.[id number]:08/12/2024 Patient:?Beka Bernabe :1965???Age:59 Y???Sex:Male [address] [place] [address] Subjective: * Chief Complaints: * ???UTI issues * Medical History:? * Surgical History:? * Hospitalization/Major Diagno stic Procedure:? * Medications:? Objective: Assessment: Plan: * Treatment: * Procedure Codes:? * true * Date:? Generated for Carter taylor/Elaine/Prabhakaritting on:?09/11/2024 11:37 AM EST Consultation Request Notes Referral Date Referring Provider Referred Provider Not 08/12/2024 Marcos Newman Alexander UTI
--- OUTSIDE RECORDS SUMMARY | 2024-09-11 11:38 | XMS_ITS | Continuity of Care Document ---
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 Grinder Name Role Phone [facility] Unavailable Unavailable Problems Combined list of problems [...] Site Reaction Lot Number CVX Code Drug Helpdesk Technician Status Comments Source influenza, injectable, quadrivalent- pf 2021 [id number] 150 GlaxoSmithKli ne complet ed influenza , injectabl e, quadrival ent-pf 05/06/22 Given Ambulat ory Pharmac y influenza, seasonal, injectable 2020 [id number] 141 GlaxoSmithKli ne complet ed influenza , seasonal, injectabl e 04/19/21 Given Ambulat ory Pharmac y COVID Vaccine Moderna 2020 [id number] complet ed COVID Vaccine Moderna 09/17/20 Given Ambulat ory Pharmac y COVID Vaccine Moderna 2020 [id number] 207 complet ed COVID Vaccine Moderna 08/15/20 Given Ambulat ory Pharmac y influenza, injectable, quadrivalent- pf 2019 [id number] 150 Seqirus complet ed influenza , injectabl e, quadrival ent-pf 06/01/20 Given Ambulat ory Pharmac y poliovirus vaccine, inactivated 2019 [id number] 10 sanofi pasteur complet ed polioviru s vaccine, inactivat ed 09/15/19 Given Ambulat ory Pharmac y typhoid Vi capsular polysaccharid e vac 2019 [id number] 101 sanofi pasteur complet ed typhoid Vi capsular polysacch aride vac 09/15/19 Given Ambulat ory Pharmac y anthrax vaccine 2019 [id number] 24 [employer] complet ed anthrax vaccine 09/15/19 Given Ambulat ory Pharmac y anthrax vaccine 2019 [id number] 24 [employer] complet ed anthrax vaccine 08/03/19 Given Ambulat ory Pharmac y influenza, injectable, quadrivalent- pf 2018 [id number] 150 Seqirus complet ed influenza , injectabl e, quadrival ent-pf 06/11/19 Given Ambulat ory Pharmac y tuberculin purified protein derivative 2018 [id number] 96 sanofi pasteur complet ed tuberculi n purified protein derivativ e 09/04/18 Given Ambulat ory Pharmac y tetanus, diphtheria, acellular pertu is 2017 [id number] 115 sanofi pasteur complet ed tetanus, diphtheri a, acellular pertussis 06/04/18 Given Ambulat ory Pharmac y tetanus toxoid, reduced diphtheria toxoid, and acellular pertu is vaccine, adsorbed 4 2017 [id number] 115 Sanofi Pasteur ([facility]) complet ed tetanus toxoid, reduced diphtheri a toxoid, and acellular pertussis vaccine, adsorbed DoD influenza, seasonal, injectable 2017 [id number] 141 GlaxoSmithKli ne complet ed influenza , seasonal, injectabl e 05/14/18 Given Ambulat ory Pharmac y Influenza, seasonal, injectable 1 2017 [id number] 141 [facility] (SKB) complet ed Influenza , seasonal, injectabl e DoD influenza, injectable, quadrivalent 2016 [id number] 158 [employer] comple t ed influenza , injectabl e, quadrival ent 05/26/17 Given Ambulat ory Pharmac y influenza, injectable, quadrivalent, contains preservative 0 2016 [id number] 158 (IDB) complet ed influenza , injectabl e, quadrival ent, contains preservat carlitos DoD measles/mumps /rubella virus vaccine 2016 [id number] 03 Merck & Company Inc complet ed measles/m umps/rube lla virus vaccine 08/25/16 Given Ambulat ory Pharmac y measles, mumps and rubella virus vaccine 2 2016 [id number] 03 Merck (MSD) complet ed measles, mumps and rubella virus vaccine DoD measles/mumps /rubella virus vaccine 2016 [id number] 03 Merck & Company Inc complet ed measles/m umps/rube lla virus vaccine 07/28/16 Given Ambulat ory Pharmac y measles, mumps and rubella virus vaccine 1 2016 [id number] 03 Merck (MSD) complet ed measles, mumps and rubella virus vaccine DoD influenza, seasonal, injectable 2015 [id number] 141 Seqirus complet ed influenza , seasonal, injectabl e 05/07/16 Given Ambulat ory Pharmac y Influenza, seasonal, injectable 1 2015 [id number] 141 Seqirus (SEQ) comple t ed Influenza , seasonal, injectabl e DoD influenza, seasonal, injectable-pf 2014 [id number] 140 CSL [employer]ring complet ed influenza , seasonal, injectabl e-pf 04/18/15 Given Ambulat ory Pharmac y Influenza, seasonal, injectable, preservative free 0 2014 [id number] 140 [employer] (L) complet ed Influenza , seasonal, injectabl e, preservat carlitos free DoD influenza, seasonal, injectable-pf 2013 [id number] 140 CSL [employer]ring complet ed influenza , seasonal, injectabl e-pf 04/12/14 Given Ambulat ory Pharmac y Influenza, seasonal, injectable, preservative free 1 2013 [id number] 140 CS [employer] Inc. (CSL) complet ed [...] intraderm al DoD Influenza, injectable, MDCK-pf 2012 [id number] 153 Novartis Pharmaceutica ls complet ed Influenza , injectabl e, MDCK-pf 06/08/13 Given Ambulat ory Pharmac y Influenza, injectable, [place] Canine Kidney, preservative free 0 2012 [id number] 153 Novartis Pharmaceutica l Ac. (NOV) complet ed Influenza , injectabl e, [place] Canine Kidney, preservat carlitos free DoD tuberculin purified protein derivative 2012 zzLef t Arm [id number] 96 sanofi pasteur complet ed Patient Tolerance : Negative Ambulat ory Pharmac y tuberculin skin test; purified protein derivative solution, intradermal 0 2012 ERICA FORDE [id number] 96 Sanofi Pasteur (PMC) complet ed tuberculi n skin test; purified protein derivativ e solution, intraderm al DoD influenza, seasonal, injectable-pf 2011 [id number] 140 C[employer]ring complet ed influenza , seasonal, injectabl e-pf 05/18/12 Given Ambulat ory Pharmac y Influenza, seasonal, injectable, preservative free 17 2011 [id number] 140 [employer] (CSL) complet ed Influenza , seasonal, injectabl e, preservat carlitos free DoD influenza virus vaccine, live 2010 [id number] 111 [employer] comple t ed influenza virus vaccine, live 06/11/11 Given Ambulat ory Pharmac y influenza virus vaccine, live, attenuated, for intranasal use 0 2010 [id number] 111 [employer] Inc. (MED) complet ed influenza virus vaccine, live, attenuate d, for intranasa l use DoD influenza virus vaccine, live 2009 [id number] 111 [employer] comple t ed influenza virus vaccine, live 05/08/10 Given Ambulat ory Pharmac y influenza virus vaccine, live, attenuated, for intranasal use 1 2009 [id number] 111 [employer] Inc[employer] (MED) complet ed influenza virus vaccine, live, attenuate d, for intranasa l use DoD Novel influenza-H1N 1-09, injectable 2009 [id number] 1 127 Novartis Pharmaceutica complet ed Novel influenza -D6S1-68, injectabl e 08/15/09 Given Ambulat ory Pharmac y Novel influenza-H1N 1-09, injectable 1 2009 [id number] 1 127 Novartis Pharmaceutica l Ac. (NOV) complet ed Novel influenza -D9E8-33, injectabl e DoD influenza virus vaccine, live 2008 [id number] 111 Medimmune Inc comple t ed influenza virus vaccine, live 05/08/09 Given Ambulat ory Pharmac y influenza virus vaccine, live, attenuated, for intranasal use 1 2008 [id number] 111 [employer] Inc. (MED) complet ed influenza virus vaccine, live, attenuate d, for intranasa l use DoD influenza virus vaccine,split 2007 [id number] 15 GlaxoSmithKli ne complet ed influenza virus vaccine,s plit 06/28/08 Given Ambulat ory Pharmac y influenza virus vaccine, split virus (incl. purified surface antigen)-reti red CODE 1 2007 [id number] 15 [facility] (B) complet ed influenza virus vaccine, split virus (incl. purified surface antigen)- retired CODE [facility] tetanus, diphtheria, acellular pertu is 2007 [id number] 115 sanofi pasteur complet ed tetanus, diphtheri a, acellular pertussis 02/26/08 Given Ambulat ory Pharmac y typhoid Vi capsular polysaccharid e vac 2007 [id number] 101 sanofi pasteur complet ed typhoid Vi capsular polysacch aride vac 02/26/08 Given Ambulat ory Pharmac y typhoid Vi capsular polysaccharid e vaccine 1 2007 [id number] 101 Sanofi Pasteur ([facility]) complet ed typhoid Vi capsular polysacch aride vaccine DoD tetanus toxoid, reduced diphtheria toxoid, and acellular pertu is vaccine, adsorbed 1 2007 [id number] 115 Sanofi Pasteur ([facility]) complet ed tetanus toxoid, reduced diphtheri a toxoid, and acellular pertussis vaccine, adsorbed DoD influenza virus vaccine,split 2007 [id number] 15 GlaxoSmithKli ne complet ed influenza virus vaccine,s plit 10/06/07 Given Ambulat ory Pharmac y influenza virus vaccine, split virus (incl. purified surface antigen)-reti red CODE 1 2007 [id number] 9AA 15 [facility] (SKB) complet ed influenza virus vaccine, split virus (incl. purified surface antigen)- retired CODE DoD influenza virus vaccine,split 2005 [id number] 15 Unknown complet ed influenza virus vaccine,s plit 06/23/06 Given Ambulat ory Pharmac y influenza virus vaccine, split virus (incl. purified surface antigen)-reti red CODE 1 2005 [id number] 15 Other (OTH) complet ed influenza virus vaccine, split virus (incl. purified surface antigen)- retired CODE [facility] tetanus-dipht h toxoids (Td) adult/adol 2005 [id number] 09 sanofi pasteur complet ed tetanus-d iphth toxoids (Td) adult/ado l 01/13/06 Given Ambulat ory Pharmac y typhoid vaccine, parenteral 2005 [id number] 41 sanofi pasteur complet ed typhoid vaccine, parentera l 01/13/06 Given Ambulat ory Pharmac y tetanus and diphtheria toxoids, adsorbed, preservative free, for adult use (2 Lf of tetanus toxoid and 2 Lf of diphtheria toxoid) 1 2005 [id number] 09 Sanofi Pasteur ([facility]) complet ed tetanus and diphtheri a toxoids, adsorbed, preservat carlitos free, for adult use (2 Lf of tetanus toxoid and 2 Lf of diphtheri a toxoid) DoD typhoid vaccine, parenteral, other than acetone-kille d, dried 1 2005 [id number] 41 Sanofi Pasteur ([facility]) complet ed typhoid vaccine, parentera l, other than acetone-k illed, dried DoD influenza virus vaccine,split 2004 [id number] 15 sanofi pasteur complet ed influenza virus vaccine,s plit 06/25/05 Given Ambulat ory Pharmac y influenza virus vaccine, split virus (incl. purified surface antigen)-reti red CODE 1 2004 [id number] 15 Sanofi Pasteur ([facility]MC) complet ed influenza virus vaccine, split virus (incl. purified surface antigen)- retired CODE [facility] hepatitis B vaccine, adult dosage 0 2004 43 () Not Given hepatitis B vaccine, adult dosage DoD varicella virus vaccine 0 2004 21 () Not Given varicella virus vaccine DoD influenza virus vaccine, live 2004 [id number] 111 [employer] comple t ed influenza virus vaccine, live 08/15/04 Given Ambulat ory Pharmac y influenza virus vaccine, live, attenuated, for intranasal use 0 2004 [id number] 111 [employer] (MED) complet ed influenza virus vaccine, live, attenuate d, for intranasa l use DoD typhoid vaccine, parenteral 2003 [id number] 41 sanofi pasteur complet ed typhoid vaccine, parentera l 01/06/04 Given Ambulat ory Pharmac y typhoid vaccine, parenteral, other than acetone-kille d, dried 0 2003 [id number] 41 Sanofi Pasteur ([facility]) complet ed typhoid vaccine, parentera l, other than acetone-k illed, dried DoD influenza virus vaccine, whole virus 2003 [id number] 16 sanofi pasteur complet ed influenza virus vaccine, whole virus 09/12/03 Given Ambulat ory Pharmac y influenza virus vaccine, whole virus 0 2003 [id number] 16 Sanofi Pasteur ([facility]MC) complet ed influenza virus vaccine, whole virus DoD tuberculin purified protein derivative 2002 [id number] 96 sanofi pasteur complet ed tuberculi n purified protein derivativ e 01/10/03 Given Ambulat ory Pharmac y influenza virus vaccine, whole virus 2001 [id number] 16 sanofi pasteur complet ed influenza virus vaccine, whole virus 05/10/02 Given Ambulat ory Pharmac y influenza virus vaccine, whole virus 0 2001 [id number] 16 Sanofi Pasteur ([facility]) complet ed influenza virus vaccine, whole virus DoD meningococcal polysaccharid e (MPSV4) 2001 [id number] 32 sanofi pasteur complet ed meningoco ccal polysacch aride (MPSV4) 12/25/01 Given Ambulat ory Pharmac y tuberculin purified protein derivative 2001 [id number] 96 sanofi pasteur complet ed tuberculi n purified protein derivativ e 12/25/01 Given Ambulat ory Pharmac y meningococcal polysaccharid e vaccine (MPSV4) 0 2001 [id number] 32 Sanofi Pasteur ([facility]) complet ed meningoco ccal polysacch aride vaccine (MPSV4) DoD influenza virus vaccine, whole virus 2000 [id number] 16 sanofi pasteur complet ed influenza virus vaccine, whole virus 06/08/01 Given Ambulat ory Pharmac y influenza virus vaccine, whole virus 0 2000 [id number] 16 Sanofi Pasteur ([facility]) complet ed influenza virus vaccine, whole virus DoD tuberculin purified protein derivative 2000 96 complet ed tuberculi n purified protein derivativ e 08/11/00 Given Ambulat ory Pharmac y influenza virus vaccine, whole virus 2000 [id number] 16 [facility] complet ed influenza virus vaccine, whole virus 08/11/00 Given Ambulat ory Pharmac y influenza virus vaccine, whole virus 0 2000 [id number] [facility] complet ed influenza virus vaccine, whole virus DoD tuberculin purified protein derivative 2000 [id number] 96 [facility] complet ed tuberculi n purified protein derivativ e 07/28/00 Given Ambulat ory Pharmac y tuberculin purified protein derivative 1998 [id number] 96 [facility] complet ed tuberculi n purified protein derivativ e 05/08/99 Given Ambulat ory Pharmac y influenza virus vaccine, whole virus [id number] [id number] 16 [facility] complet ed influenza virus vaccine, whole virus 05/08/99 Given Ambulat ory Pharmac y influenza virus vaccine, whole virus 0 19983683 [id number] 16 [facility] ([facility]) complet ed influenza virus vaccine, whole virus DoD typhoid vaccine, live, oral 1998 25 [employer] complet ed typhoid vaccine, live, oral 12/03/98 Given Ambulat ory Pharmac y typhoid vaccine, live, oral 0 1998 25 [employer] (BP) complet ed typhoid vaccine, live, oral DoD measles, mumps and rubella virus vaccine 0 1998 03 () Not Given measles, mumps and rubella virus vaccine DoD influenza virus vaccine, whole virus 19971956 [id number] 16 [facility] complet ed influenza virus vaccine, whole virus 05/09/98 Given Ambulat ory Pharmac y influenza virus vaccine, whole virus 0 19976009 [id number] 16 [facility] ([facility]) complet ed influenza virus vaccine, whole virus DoD tuberculin purified protein derivative 1997 96 [facility] complet ed tuberculi n [...] dosage DoD influenza virus vaccine, whole virus [id number] 16 [employer] complet ed influenza virus vaccine, whole virus 08/15/97 Given Ambulat ory Pharmac y hepatitis B adult vaccine 1997 [id number] 43 [employer]ck & Company Inc complet ed hepatitis B adult vaccine 08/15/97 Given Ambulat ory Pharmac y meningococcal polysaccharid e (MPSV4) 1997 [id number] 32 [employer] complet ed meningoco ccal polysacch aride (MPSV4) 08/15/97 Given Ambulat ory Pharmac y hepatitis A adult vaccine 1997 [id number] 52 [employer] Inc complet ed hepatitis A adult vaccine 08/15/97 Given Ambulat ory Pharmac y influenza virus vaccine, whole virus 0 19975264 [id number] 16 [employer] (Inactive) ([place]) complet ed influenza virus vaccine, whole virus DoD meningococcal polysaccharid e vaccine (MPSV4) 0 1997 [id number] 32 [place] (CON) complet ed meningoco ccal polysacch aride vaccine (MPSV4) DoD hepatitis B vaccine, adult dosage 3 1997 [id number] 43 Merck (MSD) complet ed hepatitis B vaccine, adult dosage DoD hepatitis A vaccine, adult dosage 1 1997 [id number] 52 Merck (MSD) complet ed hepatitis A vaccine, adult dosage DoD hepatitis B adult vaccine 1996 [id number] 43 [employer] complet ed hepatitis B adult vaccine 08/17/96 Given Ambulat ory Pharmac y hepatitis B vaccine, adult dosage 1 1996 [id number] 43 [employer] (CON) complet ed hepatitis B [...] ory Pharmac y yellow fever vaccine 1995 [id number] 37 [employer] complet ed yellow fever [...] toxoid) DoD yellow fever vaccine 0 1995 [id number] 37 [place] (CON) complet ed yellow fever [...] ADM Date DC Date Status Disposition Source [facility] [place] OUTPATIENT [id number] ad inpro medevac MARNIE SPENCE 08/05 Released w/o Limitations [facility] [place] [facility] [place] OUTPATIENT [id number] 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 [employer] ANIRUDHYovana SYLVIA Green 09/01 Released w/o Limitations [facility] [place] OUTPATIENT [id number] Notes Entered by: YASMINE ALCAZAR V 30 Oct 2018 0852 ------- ------- ------- ------- -- MEHP In-Proc YASMINE Call V 10/30 Released w/o Limitations [address] [place] [address]([facility]) [facility] Facility OUTPATIENT [id number] Theater Provider 05/10 Released w/o Limitations Theater Facilit y [id number] AMDS Between Visit [id number] 10/21 Discharge Disposition: Home or Self Care 8344R-4 39 AMDS 8344R-439 AMDS Dental [id number] DONTA DRAKEAMMOND 05/16 Discharge Disposition: Home or Self Care 8344R-4 39 AMDS 8344R-439 AMDS Between Visit [id number] 07/30 Discharge Disposition: Home or Self Care 8344R-4 39 AMDS 8344R-439 AMDS Care Not Rendered [id number] 08/02 Discharge Disposition: Home or Self Care 8344R-4 39 AMDS 8344R-439 AMDS Care Not Rendered [id number] 08/22 Discharge Disposition: Home or Self Care 8344R-4 39 AMDS Procedures Combined list of: 1) Procedures from [facility] of Veterans Affairs facilities going back up to thelast 18 months, not all [place] non-surgical procedures are included; 2) 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 Social History Type Response Date Comment Soureliana e This section is an empty social [...] Plan No data available for this section 09/11/2024 Ambulatory Pharmacy Functional Status Combined list of recent functional and cognitive assessments recorded at [facility] Defense and [facility] ([facility] Functional [place] Measurement (FIM) Scale: 1 = Total Assistance (Subject = 0% +), 2 = Maximal Assistance (Subject = 25% +), 3 = Moderate Assistance (Subject = 50% +), 4 = Minimal Assistance (Subject = 75% +), 5 = Supervision, 6 = Modified Pitt (Device), 7 = Complete Pitt (Timely, Safely). Assessment Date/Time Source Assessment Type Assessment Skill Assessment Score Assessment Details No data available for this section
--- OUTSIDE RECORDS SUMMARY | 2024-09-11 11:38 | XMS_ITS | Patient Health Record ---
Author Organization Marcos Newman MD Address [address] [place], [place] [id number] Care Team Providers Care Embroidery Cutter Name Role Phone Marcos Newman Primary Care Provider Allergies No Known Allergies Results Component Value Reference Range Notes Urine Culture Reviewed date:08/29/2024 12:30:47 PM Interpretation: Performing Lab:[facility], [address] [place] [phone] Notes/Report: Urine Culture No growth. Complete Blood Count Auto Di ff (Not yet reviewed by provider) Interpretation: Performing Lab:[facility], [address] [place] [phone] Notes/Report: White Blood Count 8.0 4.8-10.8 X10*3/uL [...] 0.0-0.2 /100WBC Neutrophils Absolute Auto 4.8 2.0-8.3 x10*3/uL Imm Gran Abs Auto 0.03 0.00-0.03 X10*3/uL Lymphocytes Absolute Auto 1.9 1.2-4.9 X10*3/uL Monocytes Absolute Auto 0.9 0.1-1.2 X10*3/uL Eosinophils Absolute Auto 0.4 0.0-0.4 X10*3/uL Basophils Absolute Auto 0.0 0.0-0.2 X10*3/uL NRBC Abs Auto 0.000 0.0-0.012 X10*3/uL Comprehensive [place]. Panel Fa st (Not yet reviewed by provider) Interpretation: Performing Lab:[address] [phone] Notes/Report: Sodium 141 135-145 mmol/L Potassium 4.1 [...] 53 39-117 U/L Lipid Panel (Not yet reviewe d by provider) Interpretation: Performing Lab:[facility], [address] [place] [phone] Notes/Report: Triglycerides 157 <150 mg/dL Desirable Triglyceride: [...] (Not yet reviewed by provider) Interpretation: Performing Lab:[facility], [address] [place] [phone] Notes/Report: Urine, Clean Catch Color Urine Yellow Appearance Urine Clear PH 5.5 5.0-9.0 Glucose Urine UA Negative Negative mg/dL Urine Blood Negative Negative Specific [place] - Urine 1.025 1.005-1.025 Urine Protein Negative [...] date:09/21/2023 03:55:21 PM Interpretation: Performing Lab: Notes/Report: [address] [address] [address] Scan Report Signed Patient: Beka Bernabe Jr MR#: [id number] : 1965 Acct:[id number] Age/Sex: 58 / M ADM Date: 09/21/23 Loc: HO.CT Attending Dr: Rick Miller MD, FACS, [facility] Ordering Physician: Rick Miller MD, [facility] Date of Service: 09/21/23 Procedure(s): CT abdomen pelvis w IV con Accession Number(s): [id number] cc: Marcos Newman MD; Rick Miller MD, [facility] EXAMINATION: CT ABDOMEN AND PELVIS WITH CONTRAST [...] in OV> 09/21/23 1444 DD/ 0843 TD/TT: Coating Machine Feeder: [address] [address] [address] Scan Report Signed Patient: Ron Bernabe Jr MR#: [id number] : 1965 Acct:[id number] Age/Sex: 58 / M ADM Date: 09/21/23 Loc: HO.CT Attending Dr: Rick Milelr MD, FACS, [facility] Ordering Physician: Rick Miller MD, [facility] Date of Service: 09/21/23 Procedure(s): CT abd omen pelvis w IV con Accession Number(s): [id number] cc: Marcos Newman MD; Rick Miller MD, [facility] EXAMINATION: CT ABDOMEN AND PELVI S WITH CONTRAST CLINICAL INFORMATION: 58-year-old male wit h abdominal pain COMPARISON: None available. TECHNIQUE: Multidetector volume tric images were obtained from the superior aspect of the liver through the pubic symphysis following administration 85 mL of Omnipaque 350 intravenous contrast. Sagittal and coronal reformatted images were obtained on the technologist's workstation. Oral contrast: No This CT examination was performed using dose optimization techniques as appropriate, various ly including the following: *Automated exposure control *Adjustment of mA an d/or kV according to patient size (this includes [...] without intrahepatic masses or ductal dilatation and enlar ged. The gallbladder is unremarkable with no evidence of radiopaq ue gallstones, gallbladder wall thickening, or obvious pericholecys tic inflammatory changes. PANCREAS: Unremarkable. SPLEEN: Unremarkable. ADRENAL GLANDS: Unremarkable. KIDNEYS AND URETERS: The kidneys are normal in size, shape, and attenuation. No hydronephrosis, hydroureter, or calculi seen. No perinephric stranding. BLADDER: Unremarkable. GASTROINTESTINAL TRA CT: The small and large bowel are unremarkable. The appendix is unremarkable. ABDOMINAL WALL: No significant hernia is appreciated. LYMPH NODES: Normal. VASCULAR: Unremarkable. PELVIC VISCERA: Unremarkable. OSSEOUS STRUCTURES: Unremarkable. C T/CT abdomen pelvis w IV con IMPRESSION: No explanation for abdominal pain. Hepatic steatosis and hepatomegaly. Fleischner guideline s were followed. Dictated By: Padilla Shaffer MD Signed By: <Electronically signed by Padilla Shaffer MD in OV> 09/21/23 4724 DD/ 0843 TD/TT: Coating Machine Feeder: Pathology Reviewed date:07/22/2024 04:36:46 PM Interpretation: Performing Lab:[facility], [address] [place] [phone] Notes/Report: ---- Name: Beka Bernabe Vasyl Diana Age/Sex: 59/M : 1965 Unit#: [id number] Attend Dr: Scotty De La Torre MD Re07/18/24 Status : [facility] Location: [facility] Disch: ---- SPEC : [id number] RECD : 07/18/24-1422 STATUS: BRANDY HAMLIN NUM: [id number] ARTURO: 07/18/24-[address] [facility] [address]: Scotty De La Torre MD ENTERED: 07/18/24-14 23 SP TYPE: Surgical OTHR DR: Marcos Newman MD ORDERED: Gross Micro L3 Diagnosis Soft tissue, right u pper mid back, excision: 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 Clinical History Benign lipomatous neoplasm of skin and subcutaneous tissue Microscopic Description Microscopic sections reviewed. Material Received Recurrent right uppe r mid back lipoma Gross Description Received in formalin labeled ?recurrent right upper mid back lipoma? are 4 cauterized portions of freire-yellow lobular adipose tissue ranging from 1.5 to 6.5 cm and aggregating 6.5 x 5.5 x 0.5-2.5 cm. Due to the fragmented nature in which the specimen is received the margins can not be evaluated. There is attached cauterized pink-red fibrous tissue. Sectioning reveals predominantly homogeneous edematous, focally dense sotelo-white fibrous cut surfaces with focal congestion and hemorrhage and a lesser amount of freire-yellow lobular fat. No fleshy or necrotic foci are identified. Information Systems Operator sections are submitted in cassettes A1-A6. CEDS Copies To: Marcos Newman MD Primary Care Physicians [address] [facility] [address] [place], [place] [id number] Scotty De La Torre MD [facility] [place] [facility] [address] [place] [address] [email or web address] CONTINUED ON NEXT PAGE ---- Name: Beka Bernabe Jr Age/Sex: 59/M : 1965 Unit#: [id number] Attend Dr: Scotty De La Torre MD Re07/18/24 Status : [facility] Location: [facility] Disch: ---- SPEC : [id number] RECD : 07/18/24-8803 STATUS: BRANDY HAMLIN NUM: [id number] ARTURO: 07/18/24-[address]: Scotty De La Torre MD ENTERED: 07/18/24-14 23 SP TYPE: Surgical OTHR DR: Marcos Newman MD ORDERED: Gross Micro L3 ---- Signed (signature on file) Kalie Sally 07/21/24 1234 ---- END OF REPORT Urinalysis Reviewed date:08/28/2024 01:02:26 PM Interpretation: Performing Lab:[facility], [address] [place] [phone] Notes/Report: Color Urine Yellow Appearance Urine Clear PH 5.5 5.0-9.0 Glucose Urine UA Negative Negative mg/dL Urine Blood Negative Negative Specific [place] - Urine 1.020 1.005-1.025 Urine Protein Negative Neg-Trace mg/dL Urine Ketones Negative Negative mg/dL Nitrite Urine Negative Negative Leukocyte Esterase Urine Negative Negative Reason For Referral Reason KALINA Diagnosis 1 KALINA (obstructive sle [...] Lea Gomez 02:44:02 PM EST > info faxJason jordan Annette 06/12/2024 03:25:14 PM EST > was told patient is aware of appt Referral Priority Routine Referral Appointment Date 06/16/2024 Reason UTI Diagnosis 1 Acute UTI (N39.0) Referral Organization Marcos Newman MD Referring Provider First Name Marcos Referring Provider Last Name Trent Referring Provider Speciality Internal M edicine Referred Provider Gavin Fischer Referred Provider Specialty Urology General Notes Lea Gomez 0 08/22/2024 01:16:10 PM >info faxedJason Annette 09/04/2024 11:17:27 AM > per office referral refaxed Referral Priority Routine Medications Medication SIG (Take, Route, Frequency, Duration) Notes Start Date End Date Status Nitrofurantoin Macrocrystal 100 MG 1 capsule at bedtime with food or milk Orally Once a day for 10 day(s) Active Valsartan 160 MG 1 tablet Orally Once a day for 90 days 06/05/2024 Active Indomethacin 50 MG 1 capsule with food Orally Three times a day for 10 days 11/12/2014 Not-Taking Pyridium 100 MG 1 tablet after meals Orally Three times a day for 3 days 08/07/2024 Active Immunizations Vaccine Route Administration Date Status Comme nts Flu Vaccine Unknown 05/12/2012 Administered Flu Vaccine Unknown 04/28/2014 Administered [place] Flu Vaccine Unknown 04/22/2015 Administered Dayana r [...] Fluarix Quadrivalent IM Intramuscular 04/19/2021 Administe red Social History Tobacco Use: Social History Observation Description Date Details (start date - stop date) Never Smoker NA - NA Tobacco Use/Smoking Question Answer Notes Patient is a nonsmoker Additional Findings: Tobacco Non-User Cu rrent non-smoker, currently using no form of tobacco Alcohol Screen Question Answer Notes Did you have a drink containing alcohol in the p ast year? No Points 0 Interpretation Negative Problems Problem Type SNOMED Code ICD Code Onset Dates Problem Status W/U Status Risk Notes Problem 908715294 Tubular adenoma (D36.9) Active confirmed Problem 810901773 Body mass index (BMI) 35.0-35.9, adult (Z68.35) Active confirmed Problem 94766255 Essential hypertension (I10) Active confirmed Problem 165713250 Low HDL (under 40) (E78.6) Active confirmed Problem 328145951 Non morbid obesity due to excess calories (E66.09) Active confirmed Problem 79384221 KALINA (obstructive sleep apnea) (G47.33) Active confirmed Problem 642182808 BMI 36.0-36.9,adult (Z68.36) Active confirmed Problem 419265540 Acute constipation (K59.00) Active confirmed Vital Signs Blood pressure diastolic 80 mm Hg 08/07/2024 timur gfht is up 3 pounds since 06-05-24 Height 67.5 in 08/07/2024 weigfht is up 3 pounds since 06-05-24 Blood pressure systolic 132 mm Hg 08/07/2024 weig fht is up 3 pounds since 06-05-24 Weight 260 lbs 08/07/2024 weigfht is up 3 pounds since 06-05-24 BMI 40.12 kg/m2 08/07/2024 weigfht is up 3 pounds since 06-05-24 Encounters Encounter Location Date Provider Diagnosis Marcos Newman MD [address] [place] [id number] 08/28/2024 Marcos Newman Acute constipation K59.00 Marcos Newman MD [address] [place] [id number] 09/11/2024 Marcos Newman Blood tests for routine general physical examination Z00.00 ; Essential hypertension I10 and Low HDL (under 40) E78.6 Marcos Newman MD [address] [place] [id number] 09/13/2023 Marcos Newman Prediabetes R73.03 ; Annual physical exam Z00.00 ; Essential hypertension I10 ; Non morbid obesity due to excess calories E66.09 ; Colon cancer screening Z12.11 and Depression screening Z13.31 Marcos Newman MD [address] [place] [address] Drive [address] [place] [id number] 06/05/2024 Marcos Newman Other specified coug h R05.8 ; Adverse effect of angiotensin-convertin g-enzyme inhibitors, initial encounter T46.4X5A ; Essential hypertension I10 ; KALINA (obstructive sleep apnea) G47.33 and 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 Marcos Newman MD [address] [place] [address] Drive [address] [place] [id number] 08/07/2024 Marcos Newman Acute constipation K59.00 and Acute UTI N39.0 Marcos Newman MD [address] [place] [address] Drive [address] [place] [id number] 08/12/2024 Marcos Newman Assessments Encounter Date Diagnosis (ICD Code) Assessment Notes Treatment Notes Treatment Clinical Notes Section Notes 08/28/2024 Acute constipation (ICD-10 - K59.00) 09/11/2024 Blood tests for routine general physical examination (ICD-10 - Z00.00) 09/13/2023 Prediabetes (ICD-10 - R73.03) to diet, will continue to monitor, no need for medication at this time 09/13/2023 Annual physical exam (ICD-10 - Z00.00) labs reviewed and discussed with patient 06/05/2024 Other specified cough (ICD-10 - R05.8) 06/05/2024 Adverse effect of angiotensin-conv erting-enzyme inhibitors, initial encounter (ICD-10 - T46.4X5A) patient verbalized understanding will stop the jess and start valsartan 08/07/2024 Acute constipation (ICD-10 - K59.00) will observe/ it is not clear the relationship to the uti and dysuria as well as the loss of appetite, he has a negative exam on abdomen and nothing on rectal. will observe 08/07/2024 Acute UTI (ICD-10 - N39.0) 09/11/2024 Essential hypertension (ICD-10 - I10) 09/13/2023 Essential hypertension (ICD-10 - I10) a little on high side, will continue current regiment and will continue to monitor 06/05/2024 Essential hypertension (ICD-10 - I10) had not been taking meds for 4 days, patient verbalized understanding of new medication and directions for use 09/11/2024 Low HDL (under 40) (ICD-10 - E78.6) 09/13/2023 Non morbid obesity due to excess calories (ICD-10 - E66.09) encouraged diet 06/05/2024 KALINA (obstructive sleep apnea) (ICD-10 - G47.33) referral to sleep medicine 09/13/2023 Colon cancer screening (ICD-10 - Z12.11) guaiac negative 06/05/2024 Lipoma of back (ICD-10 - D17.1) referral to dr de la torre 09/13/2023 Depression screening (ICD-10 - Z13.31) negative screen Plan Of Treatment Pending Test Test Name Order Date Electrocardiogram (EKG) 02/26/2017 Electrocardiogram (EKG) 08/21/2019 Complete Blood Count Auto Diff 5 Comprehensive [place]. Panel Fast 5 Lipid Panel 09/11/2024 PSA,Total (Free>4and<10) 09/11/2024 UA ClnCatch+Micro w/rflx Cult 09/11/2024 Urinalysis and Microscopic 08/28/2024 Next Appt Details Provider Name:Marcos bella, 09/18/2024 08:00:00 AM, [address] [place] [address], [address], [place], [place], [phone], Insurance Providers Payer Name Payer Address Payer Phone Subscriber Number Group Number Insured Name Patient Relationship to Insured Coverage Start Date Coverage End Date [employer] [address] [place], [place] [phone] [phone] [id number] Beka Bernabe Self - patient is the insured Medical (General) History Medical History History ICD Code Colonoscopy 08/30/16 w/Dr. Lyman ss - repeat 5 years Tubular adenoma colonoscopy 03/13. due in 5 years
--- OUTSIDE RECORDS SUMMARY | 2024-09-11 11:38 | XMS_ITS ---
Author Organization Marcos Newman MD Address [address] [place], [place] [phone] Care Team Providers Care Expanding Machine Operator Name Role Phone Marcos Newman Primary Care Provider Results Component Value Reference Range Notes Urine Culture Reviewed date:08/29/2024 12:30:47 PM Interpretation: Performing Lab:[facility], [address] [place] [phone] Notes/Report: Urine Culture No growth. REASON FOR VISIT urine micro/ urine culture Encounters Encounter Location Date Provider Diagnosis Marcos Newman MD [address] [place], [place] [id number] 08/28/2024 Marcos Newman Acute constipation K59.00 Assessments Encounter Date Diagnosis (ICD Code) Assessment Notes Treatment Notes Treatment Clinical Notes Section Notes 08/28/2024 Acute constipation (ICD-10 - K59.00) Plan Of Treatment Pending Test Test Name Order Date Urinalysis and Microscopic 08/28/2024 Next Appt Details Provider Name:Marcos Marroquin ier, 09/18/2024 08:00:00 AM, [address] [place] [address], [address], [place], [place], [phone], Progress Notes * Beka BERNABE TDOB: [birth year] (59 yo M)Acc No.[id number]:08/28/2024 Progress Note Patient:?LUIGIQUINTONBeka Provider:?Marcos Newman MD :1965???Age:59 Y???Sex:Male Jhonny e:08/28/2024 Address:[address] [place] [address] , [id number] Subjective: * Chief Complaints: * ???1. Urine micro/ urine cul ture. * Medical History:? Objective: * Vitals:? Assessment: * Assessment: 1.?Acute constipation - K59. 00 (Primary)??? Plan: * Treatment: * * The named appointment provid er may or may not be the originator of this progress note, and it is not deemed complete until electronically signed by the appointment provider. Sign off status: Pending * Provider:?Marcos Newman MD Date:?0 08/28/2024 Generated for Carter taylor/Elaine/eTelíassmitting on:?09/11/2024 11:37 AM EST
[2024-09-12 12:08] LABS: Free Prostate Spec Ag 0.6 ng/mL; Percent Free Prostate Spec Ag 10 % (calc) (>25); Prostate Specific Ag Total 6.3 ng/mL (< OR = 4.0)
== END 2024-09-11 10:27 | disposition home or self-care (01) ==
LOC: HO.LNP 10:26
PROVIDERS: Visit Provider Internal Medicine
DX: Z00.00 Encounter for general adult medical examination without abnormal findings (principal); I10 Essential (primary) hypertension; E78.6 Lipoprotein deficiency; Z12.5 Encounter for screening for malignant neoplasm of prostate
CPT/HCPCS: 80053; 80061; 81001; 84153; 84154; 85025

== ENCOUNTER 2024-10-09 10:35 | Outpatient (REF) | payer BC, SELFPAY ==
[2024-10-10 13:47] LABS: Free Prostate Spec Ag 0.6 ng/mL; Percent Free Prostate Spec Ag 13 % (calc) (>25); Prostate Specific Ag Total 4.8 ng/mL (< OR = 4.0)
== END 2024-10-09 10:36 | disposition home or self-care (01) ==
LOC: HO.LNP 10:35
PROVIDERS: Visit Provider Internal Medicine
DX: R97.20 Elevated prostate specific antigen [PSA] (principal)
CPT/HCPCS: 84154

== ENCOUNTER 2024-10-16 10:53 | Outpatient (REF) | payer BC, SELFPAY ==
[2024-10-16 11:18] LABS: Appearance Urine Clear; Color Urine Yellow; Glucose Urine UA Negative (Negative); Leukocyte Esterase Urine Negative (Negative); Nitrite Urine Negative (Negative); Urine Blood Negative (Negative); Urine Ketones Negative (Negative); Urine Protein Negative (Neg-Trace)
[2024-10-16 11:25] LABS: Bacteria Urine None Seen (None Seen); Hyaline Casts Urine 0-2 /LPF (0-2); RBC Urine 0-2 /HPF (0-2); Squamous Epithelial Cell Urine 0-2 /HPF (0-2); WBC Urine 0-5 /HPF (0-5)
== END 2024-10-16 10:54 | disposition home or self-care (01) ==
LOC: HO.LNP 10:53
PROVIDERS: Visit Provider Internal Medicine
DX: R97.20 Elevated prostate specific antigen [PSA] (principal)
CPT/HCPCS: 81001; 87086

== ENCOUNTER 2024-11-06 10:34 | Outpatient (REF) | payer BC, SELFPAY ==
[2024-11-06 11:29] LABS: PSA,Total (Free>4and<10) 3.56 ng/mL (0.00-4.00)
--- OUTSIDE RECORDS SUMMARY | 2024-11-06 12:43 | XMS_ITS | Patient Health Record ---
Author Organization [facility] Address [address] [place] [address] Care Team Providers Care Consulting Technical Director Name Role Phone Marcos Newman MD Primary Care Provider Herman Contreras Unavailable [phone] Allergies No Known Allergies Reason For Referral No Information Medications Medication SIG (Take, Route, Fr equency, Duration) Notes Start Date End Date Status Multivitamin Active Lisinopril 10 MG Orally Act carlitos Immunizations Vaccine Route Administration Date Status Comme nts Influenza Unknown 04/24/2021 Administered Problems Problem Type SNOMED Code ICD Code Onset Dates Problem Status W/U Status Risk Notes Problem 439043138 Encounter for screening for malignant neoplasm of colon (Z12.11) Active confirmed Problem History of adenomatous polyp of colon (109998776) History of adenomatous polyp of colon (Z86.010) Active confirmed Problem Pre-procedure evaluation check (937817420) Encounter for other preprocedural examination (Z01.818) Active confirmed Problem Screening for malignant neoplasm of rectum (137117277) Encounter for screening for malignant neoplasm of rectum (Z12.12) Active confirmed Problem 69721031 Preprocedural examination (Z01.818) Active confirmed Problem History of polyp of colon (126715723) History of colon polyps (Z86.010) Active confirmed Problem Diverticulosis of colon (249490131) Diverticulosis of colon (K57.30) Active confirmed Plan Of Treatment Future Test Test Name Order Date COLONOSCOPY 06/08/2016 COLONOSCOPY 01/11/2022 Insurance Providers Payer Name Payer Address Payer Phone Subscriber Number Group Number Insured Name Patient Relationship to Insured Coverage Start Date Coverage End Date [facility] [address] [place], [place] [id number] BRIANNA NAYAK Self - patient is the insured Medical (General) History Medical History History ICD Code Hypertension Denies DC,DM,CVA,Lung disease,renal dise ase COVID positive x 2 in 07/2019 and 11/2021 Colonoscopy 08/2016 1.5cm tubular adenoma removed Surgical History Surgery Date(Month/Year) Umbilical hernia repair x 2
--- OUTSIDE RECORDS SUMMARY | 2024-11-06 12:44 | XMS_ITS | Patient Health Record ---
Author Organization Marcos Newman MD Address [address] [place], [place] [id number] Care Team Providers Care Grab Setter Name Role Phone Marcos Newman Primary Care Provider Allergies No Known Allergies Results Component Value Reference Range Notes Urine Culture Reviewed date:08/29/2024 12:30:47 PM Interpretation: Performing Lab:[facility], [address] [place] [phone] Notes/Report: Urine Culture No growth. Complete Blood Count Auto Di ff Reviewed date:09/12/2024 04:29:43 PM Interpretation: Performing Lab:[facility], [address] [place] [phone] Notes/Report: White Blood Count 8.0 4.8-10.8 X10*3/uL [...] NRBC Abs Auto 0.000 0.0-0.012 X10*3/uL Comprehensive [place]. Panel Fa Reviewed date:09/12/2024 04:37:04 PM Interpretation: Performing Lab:[facility], [address] [place] [phone] Notes/Report: Sodium 141 135-145 mmol/L Potassium 4.1 [...] Panel Reviewed date:09/11/2024 12:46:50 PM Interpretation: Performing Lab:[facility], [address] [place] [phone] Notes/Report: Triglycerides 157 <150 mg/dL Desirable Triglyceride: [...] disease. PSA,Total (Free>4and<10) Reviewed date:09/18/2024 09:28:51 AM Interpretation:JASIEL PSA09/18/24 Performing Lab:[address] [phone] Notes/Report: PSA,Total (Free>4and<10) 6.76 0.00-4.00 ng/mL PSA methodology: Hawkins Alinity i Chemiluminescent Microparticle Immunoassay (CMIA) UA ClnCatch+Micro w/rflx Cul t Reviewed date:09/12/2024 04:30:59 PM Interpretation: Performing Lab:[address] [phone] Notes/Report: Urine, Clean Catch Color Urine Yellow Appearance Urine Clear PH 5.5 5.0-9.0 Glucose Urine UA Negative Negative mg/dL Urine Blood Negative Negative Specific [place] - Urine 1.025 1.005-1.025 Urine Protein Negative Neg-Trace mg/dL Urine Ketones Negative Negative mg/dL Nitrite Urine Negative Negative Leukocyte Esterase Urine Negative Negative RBC Urine 0-2 0-2 /HPF WBC Urine 0-5 0-5 /HPF Squamous Epithelial Cell Urine 0-2 0-2 /HPF Bacteria Urine None Seen None Seen Hyaline Casts Urine 0-2 0-2 /LPF PSA Free and Total Reviewed date:10/16/2024 09:14:12 AM Interpretation:jasiel 10/16 psa Performing Lab:[address] [place] [address] Notes/Report: Prostate Specific Ag Total 4.8 < OR = 4.0 ng/mL Percent Free Prostate Spec Ag 13 >25 % (calc) PSA(ng/mL) Free PSA(%) Estimated(x) Probability of Cancer(as%) 0-2.5 (*) Approx. 1 2.6-4.0(1) 0-27(2) 24(3) 4.1-10(4) 0-10 56 11-15 28 16-20 20 21-25 16 >or =26 8 >10(+) N/A >50 References:(1)Rafat gilliland et al.:Urology 60: 469-474 (2001) (2)Saleem et al.:J.Urol 168: 922-925 (2001) Free PSA(%) Sensitivity(%) Specificity(%) < or = 25 85 19 < or = 30 93 9 (3)Catalona et al.:TRAE 277: 9203-3178 (1996) (4)Catalona et al.:TRAE 279: 5451-0515 (1997) (x)These estimates vary with age, ethnicity, [...] mind. PSA was performed using the Francis [place] Immunoassay method. Values obtained from different assay methods cannot be used interchangeably. PSA levels, regardless of value, should not be interpreted as absolute evidence of the presence or absence of disease. THIS TEST WAS PERFORMED AT: [facility] [address] [address] RONY HOWE MD Free Prostate Spec Ag 0.6 PSA,Total (Free>4and<10) (No t yet reviewed by provider) Interpretation: Performing Lab:[facility], [address] [place] [phone] Notes/Report: PSA,Total (Free>4and<10) 3.56 0.00-4.00 ng/mL A [...] Hawkins Alinity i Chemiluminescent Microparticle Immunoassay (CMIA) Occult Blood, Stool, Guaiac (Not yet reviewed by provider) Interpretation:Negative Performing Lab: Notes/Report: Negative Occult Blood, Stool, Guaiac Neg Urinalysis and Microscopic Reviewed date:10/18/2024 09:31:32 AM Interpretation: Performing Lab:[facility], [address] [place] [phone] Notes/Report: Color Urine Yellow Appearance Urine Clear PH 5.0 5.0-9.0 Glucose Urine UA Negative Negative mg/dL Urine Blood Negative Negative Specific [place] - Urine 1.020 1.005-1.025 Urine Protein Negative Neg-Trace mg/dL Urine Ketones Negative Negative mg/dL Nitrite Urine Negative Negative Leukocyte Esterase Urine Negative Negative RBC Urine 0-2 0-2 /HPF WBC Urine 0-5 0-5 /HPF Squamous Epithelial Cell Urine 0-2 0-2 /HPF Bacteria Urine None Seen None Seen Hyaline Casts Urine 0-2 0-2 /LPF Urine Culture Reviewed date:10/18/2024 09:31:10 AM Interpretation: Performing Lab:[facility], [address] [place] [phone] Notes/Report: Urine Culture Report Result Urine Culture < 10,000 cfu/ml Pathology Reviewed date:07/22/2024 04:36:46 PM Interpretation: Performing Lab:[facility], [address] [place] [phone] Notes/Report: -- ---- Name: Beka Bernabe Jr Age/Sex: 59/M : 1965 [id number] Unit#: [id number] Attend Dr: Scotty De La Torre MD Re07/18/24 Status : [facility] Location: [facility] Disch: -- ---- SPEC : [id number] RECD : 07/18/24-1421 STATUS: BRANDY HAMLIN NUM: [id number] ARTURO: 07/18/24-[address] [facility] [address]: Scotty De La Torre MD ENTERED: 07/18/24-14 23 SP TYPE: Surgical OTHR DR: Marcos Newman MD ORDERED: Gross Micro L3 Diagnosis Soft tissue, right upper mid back, excision: Mature lobular adipose tissue [...] No fleshy or necrotic foci are identified. Internal Combustion Engine Inspector sections are submitted in cassettes A1-A6. CEDS Copies To: Marcos Newman MD [facility] [address] [place] [address] Scotty De La Torre MD [facility] [address] [place] [address] [email or web address] [employer]tern[employer]ics CONTINUED ON NEXT PAGE -- ---- Name: Beka Bernabe Age/Sex: 59/M : 1965 Unit#: [id number] Attend Dr: Scotty De La Torre MD Re07/18/24 Status : [facility] Location: [facility] Disch: -- ---- SPEC : [id number] RECD : 07/18/24-329 STATUS: BRANDY HAMLIN NUM: [id number] ARTURO: 07/18/24-[address] [facility] [address]: Scotty De La Torre MD ENTERED: 07/18/24- 23 SP TYPE: Surgical OTHR DR: Marcos Newman MD ORDERED: Sheryl Micro L3 -- ---- Signed (signature on file) Kalie Sally 07/21/24 1234 -- ---- END OF REPORT Urinalysis Reviewed date:08/28/2024 01:02:26 PM Interpretation: Performing Lab:[facility], [address] [place] [phone] Notes/Report: Color Urine Yellow Appearance Urine Clear PH 5.5 5.0-9.0 Glucose Urine UA Negative Negative mg/dL Urine Blood Negative Negative Specific [place] - Urine 1.020 1.005-1.025 Urine Protein Negative Neg-Trace mg/dL Urine Ketones Negative Negative mg/dL Nitrite Urine Negative Negative Leukocyte Esterase Urine Negative Negative PSA Free and Total Reviewed date:09/12/2024 04:26:56 PM Interpretation: Performing Lab:[facility], [address] [place] [phone] Notes/Report: Prostate Specific Ag Total 6.3 < OR = 4.0 ng/mL Percent Free Prostate Spec Ag 10 >25 % (calc) PSA(ng/mL) Free PSA(%) Estimated(x) Probability of Cancer(as%) 0-2.5 (*) Approx. 1 2.6-4.0(1) 0-27(2) 24(3) 4.1-10(4) 0-10 56 11-15 28 16-20 20 21-25 16 >or =26 8 >10(+) N/A >50 References:(1)Rafat gilliland et al.:Urology 60: 469-474 (2002) (2)Saleem et al.:J.Urol 168: 922-925 (2002) Free PSA(%) Sensitivity(%) Specificity(%) < or = 25 85 19 < or = 30 93 9 (3)Catalona et al.:TRAE 277: 2193-5201 (1997) (4)Catalona et al.:TRAE 279: 7011-0723 (1998) (x)These estimates vary with age, ethnicity, family [...] of disease. THIS TEST WAS PERFORMED AT: [facility] [address] [phone] RONY HOWE MD Free Prostate Spec Ag 0.6 Reason For Referral Reason KALINA Diagnosis 1 [...] Lea Gomez 0 08/22/2024 01:16:10 PM >info faxed Lea Gomez 09/04/2024 11:17:27 AM > per office referral refaxed Lea Gomez 09/12/2024 01:48:37 PM >spoke with office, patient felt he didn't need to be seen due to his infection has cleared, and wants to discuss this with his PCP. Patient has an appt on 09-18-2024, Lea Gomez 09/15/2024 07:18:01 AM >put a note on his office visit regarding above issue for provider Referral Priority Routine Medications Medication SIG (Take, [...] tablet Orally Once a day 06/05/2024 Active Immunizations Vaccine Route Administration Date Status Comme nts Flu Vaccine Unknown 05/12/2012 Administered Flu Vaccine Unknown 04/28/2014 Administered Dayana Flu Vaccine Unknown 04/22/2015 Administered [employer] Flu Vaccine Unknown 04/22/2016 [...] Fluarix Quadrivalent IM Intramuscular 04/19/2021 Adminhiral yates Social History Tobacco Use: Social History Observation [...] Problem Status W/U Status Risk Notes Problem 976332380 Tubular adenoma (D36.9) Active confirmed Problem 586188590 Body mass index (BMI) 35.0-35.9, adult (Z68.35) Active confirmed Problem 00063224 Essential hypertension (I10) Active confirmed Problem 873368554 Low HDL (under 40) (E78.6) Active confirmed Problem 157677523 Non morbid obesity due to excess calories (E66.09) Active confirmed Problem 85551578 KALINA (obstructive sleep apnea) (G47.33) Active confirmed Problem 065267220 BMI 36.0-36.9,adult (Z68.36) Active confirmed Problem 359410605 Acute constipation (K59.00) Active confirmed Vital Signs Blood pressure diastolic 82 mm Hg 10/16/2024 Height 67.5 in 10/16/2024 Blood pressure systolic 118 mm Hg 10/16/2024 Weight 265 lbs 10/16/2024 BMI 40.89 kg/m2 10/16/2024 Encounters Encounter Location Date Provider Diagnosis Marcos Newman MD [address] [place] [id number] 08/28/2024 Marcos Newman Acute constipation K59.00 Marcos Newman MD [address] [place] [id number] 09/11/2024 Marcos Newman Blood tests for routine general physical examination Z00.00 ; Essential hypertension I10 and Low HDL (under 40) E78.6 Marcos Newman MD [address] [place] [id number] 10/09/2024 Marcos eNwman Rising PSA level R97.20 and Elevated PSA R97.20 Marcos Newman MD [address] [place] [id number] 11/06/2024 Marcos Newman Elevated PSA R97.20 Marcos Newman MD [address] [place] [id number] 06/05/2024 Marcos Newman Other specified coug h R05.8 ; Adverse effect of angiotensin-convertin g-enzyme inhibitors, initial encounter T46.4X5A ; Essential hypertension I10 ; KALINA (obstructive sleep apnea) G47.33 and 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 Marcos Newman MD [address] [place] [address] [id number] 08/07/2024 Marcos Newman Acute constipation K59.00 and Acute UTI N39.0 Marcos Newman MD [address] [place] [address] [id number] 09/18/2024 Marcos Newman Prediabetes R73.09 ; Annual physical exam Z00.00 ; Elevated PSA R97.20 ; Essential hypertension I10 ; Low HDL (under 40) E78.6 ; Colon cancer screening Z12.11 and Depression screening Z13.31 Marcos Newman MD [address] [place] [id number] 10/16/2024 Marcos Newman Elevated PSA R97.20 and Hematuria R31.9 Marcos Newman MD [address] [place] [address] [address] [id number] 08/12/2024 Marcos Newman Assessments Encounter Date Diagnosis (ICD Code) Assessment Notes Treatment Notes Treatment Clinical Notes Section Notes 08/28/2024 Acute constipation (ICD-10 - K59.00) 09/11/2024 Blood tests for routine general physical examination (ICD-10 - Z00.00) 10/09/2024 Rising PSA level (ICD-10 - R97.20) 10/09/2024 Elevated PSA (ICD-10 - R97.20) 11/06/2024 Elevated PSA (ICD-10 - R97.20) 06/05/2024 Other specified cough (ICD-10 - R05.8) [...] observe 08/07/2024 Acute UTI (ICD-10 - N39.0) 09/18/2024 Prediabetes (ICD-10 - R73.09) talked to him aboiut diabetes and need for diet, no need for medication at this time, will continue to monitor 09/18/2024 Annual physical exam (ICD-10 - Z00.00) labs reviewed and discussed with patient 10/16/2024 Elevated PSA (ICD-10 - R97.20) will repeat psa and if elevated send to urology 10/16/2024 Hematuria (ICD-10 - R31.9) if still with hematuria will send to urology 09/11/2024 Essential hypertension (ICD-10 - I10) 06/05/2024 Essential hypertension (ICD-10 - I10) had not been taking meds for 4 days, patient verbalized understanding of new medication and directions for use 09/18/2024 Elevated PSA (ICD-10 - R97.20) had just had a severe uti and hopefully related to that, will continue to monitor 09/11/2024 Low HDL (under 40) (ICD-10 - E78.6) 06/05/2024 KALINA (obstructive sleep apnea) (ICD-10 - G47.33) referral to sleep medicine 09/18/2024 Essential hypertension (ICD-10 - I10) stable, will continue current regiment 06/05/2024 Lipoma of back (ICD-10 - D17.1) referral to dr de la torre 09/18/2024 Low HDL (under 40) (ICD-10 - E78.6) stable, will continue current regiment 09/18/2024 Colon cancer screening (ICD-10 - Z12.11) guaiac negative 09/18/2024 Depression screening (ICD-10 - Z13.31) negative screen Plan Of Treatment Pending Test Test Name Order Date Electrocardiogram (EKG) 02/26/2017 Electrocardiogram (EKG) 08/21/2019 Occult Blood, Stool, Guaiac 09/18/2024 Urinalysis and Microscopic 08/28/2024 PSA,Total (Free>4and<10) 11/06/2024 Next Appt Details Provider Name:Marcos bella, 11/27/2024 07:45:00 AM, [address], [address], [facility] [place], [phone], Provider Name:Marcos Marroquin ier, 03/12/2025 07:30:00 AM, [address], [address], [place], [phone], Provider Name:Marcos Marroquin ier, 09/17/2025 07:00:00 AM, [address], [address], [place], [phone], Provider Name:Marcos Marroquin ier, 09/24/2025 08:00:00 AM, [address], [address], [place], [phone], Insurance Providers Payer Name Payer Address Payer Phone Subscriber Number Group Number Insured Name Patient Relationship to Insured Coverage Start Date Coverage End Date [employer] [facility] [address] [place], [place] [id number] Beka Bernabe Self - patient is the insured Medical (General) History Medical History History ICD Code Colonoscopy 08/30/16 w/Dr. Lyman ss - repeat 5 years Tubular adenoma colonoscopy 03/13. due in 5 years
--- OUTSIDE RECORDS SUMMARY | 2024-11-06 12:44 | XMS_ITS ---
Author Organization Marcos Newman MD Address [address] [place] [id number] Care Team Providers Care Orchid Grower Name Role Phone Marcos Newman Primary Care Provider [phone] Allergies No Known Allergies Results Component Value Reference Range Notes Urinalysis and Microscopic Reviewed date:10/18/2024 09:31:32 AM Interpretation: Performing Lab:[facility], [address] [place] [phone] Notes/Report: Color Urine Yellow Appearance Urine Clear PH 5.0 5.0-9.0 Glucose Urine UA Negative Negative mg/dL Urine Blood Negative Negative Specific [place] - Urine 1.020 1.005-1.025 Urine Protein Negative Neg-Trace mg/dL Urine Ketones Negative Negative mg/dL Nitrite Urine Negative Negative Leukocyte Esterase Urine Negative Negative RBC Urine 0-2 0-2 /HPF WBC Urine 0-5 0-5 /HPF Squamous Epithelial Cell Urine 0-2 0-2 /HPF Bacteria Urine None Seen None Seen Hyaline Casts Urine 0-2 0-2 /LPF Urine Culture Reviewed date:10/18/2024 09:31:10 AM Interpretation: Performing Lab:[facility], [address] [place] [phone] Notes/Report: Urine Culture Report Result Urine Culture [...] Location Date Provider Diagnosis Marcos Newman MD [address] [place] [id number] 10/16/2024 Marcos Newman Elevated PSA R97.20 and [...] with hematu osiel will send to urology Pending Test Test Name Order Date PSA,Total (Free>4and<10) 10/16/2024 Next Appt Details Follow Up: 4 Weeks, Reason: Provider Name:Marcos bella, 11/27/2024 07:45:00 AM, [address] [place] [address], [address], [phone], Provider Name:Marcos bella, 03/12/2025 07:30:00 AM, [address] [place] [address], [address], [phone], Provider Name:Marcos bella, 09/17/2025 07:00:00 AM, [address] [place] [address], [phone], Provider Name:Marcos bella, 09/24/2025 08:00:00 AM, [address] [place] [address], [phone], Progress Notes * Beka BERNABE: [birth year] (59 yo M)Acc No.[id number]:10/16/2024 Progress Notes Patient:?Beka BERNABE Provider:?Marcos Newman MD :1965???Age:59 Y???Sex:Male Jhonny e:10/16/2024 Address:[address] [place] [address], [id number] Subjective: * Chief Complaints: * ???3 WEEK F/UCBACK PSA * HPI: ???Symptom(s):?patient is a 59 yo male her for 3 weekfollow up visit, had uti in july. had antibiotics.? had symptoms in aug. * ROS:?General/Constitutional:?Denies?Chills.?Denies?Fatigue.?Denies?Fever.?Denies?Headache.?ENT:?Denies?Sore throat.?Respiratory:?Denies?Cough.?Denies?Shortness of breath at rest.?Denies?Shortness of breath with exertion.?Cardiovascular:?Denies?Chest pain at rest.?Denies?Chest pain with exertion.?Denies?Palpitations.?Denies?Shortness of breath.?Gastrointestinal:?Denies?Diarrhea.?Denies?Nausea.? * Medical History:? * Surgical History:? * Hospitalization/Major Diagno stic Procedure:? * Medications:?TakingValsartan 160 MG Tablet 1 tablet Orally Once [...] reviewed and reconciled with the patient * Allergies:?N.K.D.A.yes[Aller gies Verified] Objective: * Vitals:?Ht: 67.5, Wt: 265, B MS:40.89, BP:118/82, Wt-k.2. * Examination: ???General Examination: ?GENERAL APPEARANCE:?alert, well hydrated, in no distress.?RECTAL EXAM:?no masses palpable, prostate normal non tender.? Assessment: * Assessment: 1.?Elevated PSA - R97.20 (Pr imary)???2.?Hematuria - R31.9??? Plan: * Treatment: 2.?Hematuria? Notes: if still with hematuria will send to urology?? * Procedure Codes:? * Follow Up:?4 Weeks * * Sign off status: Completed true * Provider:?Marcos Newman MD Date:?0 10/16/2024 Generated for Carter taylor/Elaine/Prabhakaritting on:?11/06/2024 12:43 PM EDT History and Physical Notes * [...]
--- OUTSIDE RECORDS SUMMARY | 2024-11-06 12:44 | XMS_ITS | Continuity of Care Document ---
Author Name [facility] Organization [facility] Care Team Providers Care Manager Willow Name Role Phone [facility] Unavailable Unavailable Immunizations Combined list of available immunizations from the Department of Defense and Veterans Affairs facilities. Immunization Series Date Given Administered By Site Reaction Lot Number CVX Code Drug Insurance Verification Representative Status Comments Source influenza, injectable, quadrivalent- pf 2021 [id number] GlaxoSmithKli ne complet ed influenza , injectabl e, quadrival ent-pf 05/06/22 Given Ambulat ory Pharmac y influenza, seasonal, injectable 2020 [id number] GlaxoSmithKli ne complet ed influenza , seasonal, injectabl e 04/19/21 Given Ambulat ory Pharmac y COVID Vaccine Moderna 2020 [id number] 207 complet ed COVID Vaccine Moderna 09/17/20 Given Ambulat ory Pharmac y COVID Vaccine Moderna 2020 [id number] 207 complet ed COVID Vaccine Moderna 08/15/20 Given Ambulat ory Pharmac y influenza, injectable, quadrivalent- pf 2019 [id number] 150 Seqirus complet ed influenza , injectabl e, quadrival ent-pf 06/01/20 Given Ambulat ory Pharmac y poliovirus vaccine, inactivated 2019 [id number] 10 sanofi pasteur complet ed polioviru s vaccine, inactivat ed 09/15/19 Given Ambulat ory Pharmac y typhoid Vi capsular polysaccharid e vac 2019 [id number] sanofi pasteur complet ed typhoid Vi capsular polysacch aride vac 09/15/19 Given Ambulat ory Pharmac y anthrax vaccine 2019 [id number] 24 Emergent Biosolutions complet ed anthrax vaccine 09/15/19 Given Ambulat ory Pharmac y anthrax vaccine 2019 [id number] 24 [employer] complet ed anthrax vaccine 08/03/19 Given Ambulat ory Pharmac y influenza, injectable, quadrivalent- pf 2018 [id number] 150 Seqirus complet ed influenza , injectabl e, quadrival ent-pf 06/11/19 Given Ambulat ory Pharmac y tuberculin purified protein derivative 2018 [id number] 96 sanofi pasteur complet ed tuberculi n purified protein derivativ e 09/04/18 Given Ambulat ory Pharmac y tetanus, diphtheria, acellular pertu is 2017 [id number] 115 sanofi pasteur complet ed tetanus, diphtheri a, acellular pertussis 06/04/18 Given Ambulat ory Pharmac y influenza, seasonal, injectable 2017 [id number] 141 AlereKli ne complet ed influenza , seasonal, injectabl e 05/14/18 Given Ambulat ory Pharmac y influenza, injectable, quadrivalent 2016 [id number] ID Biomedical comple t ed influenza , injectabl e, quadrival ent 05/26/17 Given Ambulat ory Pharmac y measles/mumps /rubella virus vaccine 2016 [id number] Merck & Company Inc complet ed measles/m umps/rube lla virus vaccine 08/25/16 Given Ambulat ory Pharmac y measles/mumps /rubella virus vaccine 2016 [id number] Merck & Company Inc complet ed measles/m umps/rube lla virus vaccine 07/28/16 Given Ambulat ory Pharmac y influenza, seasonal, injectable 2015 [id number] 141 Seqirus complet ed influenza , seasonal, injectabl e 05/07/16 Given Ambulat ory Pharmac y influenza, seasonal, injectable-pf 2014 [id number] 140 CSL Behring complet ed influenza , seasonal, injectabl e-pf 04/18/15 Given Ambulat ory Pharmac y influenza, seasonal, injectable-pf 2013 [id number] 140 CSL Behring complet ed influenza , seasonal, injectabl e-pf 04/12/14 Given Ambulat ory Pharmac y tuberculin purified protein derivative 2013 Body, whole TRANSCR IBED 96 complet ed Patient Tolerance : Negative Ambulat ory Pharmac y Influenza, injectable, MDCK-pf 2012 [id number] Novartis Pharmaceutica ls complet ed Influenza , injectabl e, MDCK-pf 06/08/13 Given Ambulat ory Pharmac y tuberculin purified protein derivative 2012 zzLef t Arm [id number] 96 sanofi pasteur complet ed Patient Tolerance : Negative Ambulat ory Pharmac y influenza, seasonal, injectable-pf 2011 [id number] 140 CSL Behring complet ed influenza , seasonal, injectabl e-pf 05/18/12 Given Ambulat ory Pharmac y influenza virus vaccine, live 2010 [id number] 111 Medimmune Inc comple t ed influenza virus vaccine, live 06/11/11 Given Ambulat ory Pharmac y influenza virus vaccine, live 2009 [id number] 111 Medimmune Inc comple t ed influenza virus vaccine, live 05/08/10 Given Ambulat ory Pharmac y Novel influenza-H1N 1-09, injectable 2009 [id number] 127 Novartis Encysive Pharm[employer]stica ls complet ed Novel influenza -O7X6-96, injectabl e 08/15/09 Given Ambulat ory Pharmac y influenza virus vaccine, live 2008 [id number] 111 Medimmune Inc comple t ed influenza virus vaccine, live 05/08/09 Given Ambulat ory Pharmac y influenza virus vaccine,split 2007 [id number] 15 GlaxoSmithKli ne complet ed influenza virus vaccine,s plit 06/28/08 Given Ambulat ory Pharmac y tetanus, diphtheria, acellular pertu is 2007 [id number] 115 sanofi pasteur complet ed tetanus, diphtheri a, acellular pertussis 02/26/08 Given Ambulat ory Pharmac y typhoid Vi capsular polysaccharid e vac 2007 [id number] 101 sanofi pasteur complet ed typhoid Vi capsular polysacch aride vac 02/26/08 Given Ambulat ory Pharmac y influenza virus vaccine,split 2007 [id number] 15 GlaxoSmithKli ne complet ed influenza virus vaccine,s plit 10/06/07 Given Ambulat ory Pharmac y influenza virus vaccine,split 2005 [id number] 15 Unknown complet ed influenza virus vaccine,s plit 06/23/06 Given Ambulat ory Pharmac y tetanus-dipht h toxoids (Td) adult/adol 2005 [id number] 09 sanofi pasteur complet ed tetanus-d iphth toxoids (Td) adult/ado l 01/13/06 Given Ambulat ory Pharmac y typhoid vaccine, parenteral 2005 [id number] 41 sanofi pasteur complet ed typhoid vaccine, parentera l 01/13/06 Given Ambulat ory Pharmac y influenza virus vaccine,split 2004 [id number] 15 sanofi pasteur complet ed influenza virus vaccine,s plit 06/25/05 Given Ambulat ory Pharmac y influenza virus vaccine, live 2004 [id number] 111 clipsync comple t ed influenza virus vaccine, live 08/15/04 Given Ambulat ory Pharmac y typhoid vaccine, parenteral 2003 [id number] 41 sanofi pasteur complet ed typhoid vaccine, parentera l 01/06/04 Given Ambulat ory Pharmac y influenza virus vaccine, whole virus 2003 [id number] 16 sanofi pasteur complet ed influenza virus vaccine, whole virus 09/12/03 Given Ambulat ory Pharmac y tuberculin purified protein derivative 2002 [id number] 96 sanofi pasteur complet ed tuberculi n purified protein derivativ e 01/10/03 Given Ambulat ory Pharmac y influenza virus vaccine, whole virus 2001 [id number] 16 sanofi pasteur complet ed influenza virus vaccine, whole virus 05/10/02 Given Ambulat ory Pharmac y meningococcal polysaccharid e (MPSV4) 2001 [id number] 32 sanofi pasteur complet ed meningoco ccal polysacch aride (MPSV4) 12/25/01 Given Ambulat ory Pharmac y tuberculin purified protein derivative 2001 [id number] 96 sanofi pasteur complet ed tuberculi n purified protein derivativ e 12/25/01 Given Ambulat ory Pharmac y influenza virus vaccine, whole virus 2000 [id number] 16 sanofi pasteur complet ed influenza virus vaccine, whole virus 06/08/01 Given Ambulat ory Pharmac y tuberculin purified protein derivative 2000 96 complet ed tuberculi n purified protein derivativ e 08/11/00 Given Ambulat ory Pharmac y influenza virus vaccine, whole virus 2000 [id number] 16 [facility] complet ed influenza virus vaccine, whole virus 08/11/00 Given Ambulat ory Pharmac y tuberculin purified protein derivative 2000 [id number] 96 [facility] complet ed tuberculi n purified protein derivativ e 07/28/00 Given Ambulat ory Pharmac y tuberculin purified protein derivative 1998 [id number] 96 [facility] complet ed tuberculi n purified protein derivativ e 05/08/99 Given Ambulat ory Pharmac y influenza virus vaccine, whole virus [id number] 16 [facility] complet ed influenza virus vaccine, whole virus 05/08/99 Given Ambulat ory Pharmac y typhoid vaccine, live, oral 1998 25 [employer] [facility] complet ed typhoid vaccine, live, oral 12/03/98 Given Ambulat ory Pharmac y influenza virus vaccine, whole virus [id number] 16 [facility] complet ed influenza virus vaccine, whole virus 05/09/98 Given Ambulat ory Pharmac y tuberculin purified protein derivative 1997 96 [facility] complet ed tuberculi n purified protein derivativ e 05/08/98 Given Ambulat ory Pharmac y hepatitis A adult vaccine 1997 [id number] 52 Merck & Company Inc complet ed hepatitis A adult vaccine 05/08/98 Given Ambulat ory Pharmac y influenza virus vaccine, whole virus [id number] 16 [employer] complet ed influenza virus vaccine, whole virus 08/15/97 Given Ambulat ory Pharmac y hepatitis B adult vaccine 1997 [id number] 43 [employer]ck & [employer] Inc complet ed hepatitis B adult vaccine 08/15/97 Given Ambulat ory Pharmac y meningococcal polysaccharid e (MPSV4) 1997 [id number] 32 [facility] complet ed meningoco ccal polysacch aride (MPSV4) 08/15/97 Given Ambulat ory Pharmac y hepatitis A adult vaccine 1997 [id number] 52 [employer] Inc complet ed hepatitis A adult vaccine 08/15/97 Given Ambulat ory Pharmac y hepatitis B adult vaccine 1996 [id number] [facility] complet ed hepatitis B adult vaccine 08/17/96 Given Ambulat ory Pharmac y influenza virus vaccine, whole virus 1995 16 complet ed influenza virus vaccine, whole virus 05/17/96 Given Ambulat ory Pharmac y tuberculin purified protein derivative 1995 96 complet ed tuberculi n purified protein derivativ e 01/13/96 Given Ambulat ory Pharmac y yellow fever vaccine 1995 [id number] 37 [facility] complet ed yellow fever vaccine 01/13/96 Given Ambulat ory Pharmac y tetanus-dipht h toxoids (Td) adult/adol 1995 09 complet ed tetanus-d iphth toxoids (Td) adult/ado l 01/13/96 Given Ambulat ory Pharmac y typhoid, parenteral, AKD 1995 53 complet ed typhoid, parentera l, AKD 12/09/95 Given Ambulat ory Pharmac y poliovirus vaccine, live, oral 1982 02 complet ed polioviru s vaccine, live, oral 02/01/83 Given Ambulat ory Pharmac y Results Combined list of recent chemistry, hematology and other laboratory results from Department of Defense and Veterans Affairs, ranging from 15 months to all on record, depending upon the facility. Order Name Results Value Reference Range Date Interpretation Specimen Comments Source Infectiou s Disease HIV-1/O/2 Non-Reac tive 1 (10/26/24 2:46 PM) 10/26 N Interpretiv e Data: INTERPRETAT ION: This method is a screening procedure for the detection of HIV p24 Antigen and Antibodies to HIV-1, including Group O, and/or HIV-2. NON-REACTIV E: HIV-1 antigen and HIV-1 / HIV-2 antibodies were not detected. No laboratory evidence of HIV infection. A negative test result does not exclude the possibility of exposure to or infection with HIV. HIV antibodies and/or p24 antigen may be undetectabl e in some stages of the infection and in some clinical conditions. If acute HIV infection is suspected, consider submitting another specimen to a reference laboratory for HIV-1 RNA. SCREEN REACTIVE - CONFIRMATIO N TO FOLLOW: Possible presence of HIV-1antibo dies, HIV-2 antibodies and/or HIV-1 p24 antigen. Specimen will reflex to the confirmatio n testing that fulfills the Center for Disease Control and Prevention' s HIV diagnostic algorithm. Refer to [facility] Lab Guide for additional information : [email or web address]/ [email or web address] x Testing performed by [facility]. 5600A-U 24/7 [facility] EPILAB Miscellan eous Sendouts Repository Sample Received (10/26/24 2:46 PM) 10/26 N 5600A-U 24/7 [facility] EPILAB Encounters Combined list of: 1) Encounters from [facility] facilities going backup to the last 18 months, not all [place] inpatient encounters are included; 2) Encounters from the [facility] facilities going backup to 280 months. Location Location Details Encounter Type Encounter Number Reason For Visit Attending Provider ADM Date DC Date Status Disposition Source 8344R-[id number] AMDS Between Visit [id number] 07/30 Discharge Disposition: Home or Self Care 8344R-4 39 AMDS 8344R-439 AMDS Care Not Rendered [id number] 08/22 Discharge Disposition: Home or Self Care 8344R-4 39 AMDS 8344R-439 AMDS Preclinic [id number] 10/25 8344R-4 39 AMDS 8344R-439 AMDS Outpatient [id number] LEYDI ZEUS 10/26 Discharge Disposition: Home or Self Care 8344R-4 39 AMDS 8344R-439 AMDS Outpatient [id number] LEYDI SCHULZ 10/27 Discharge Disposition: Home or Self Care 8344R-4 39 AMDS Procedures Combined list of: 1) Procedures from [facility] facilities going back up to thelast 18 months, not all [place] non-surgical procedures are included; 2) All procedures from the [facility] facilities. Procedure Procedure Type Code Date Perfomer Comments Sourc e No data available for this section Ambulatory P harmacy Assessment and Plan Combined list of future care activities from Department of Defense and Veterans Affairs facilities (e.g., assessment and plan notes, appointments, orders, and referrals). Additional future care activities may be listed in the Plan of Care section. Result Assessment and Plan Date Source Assessment and Plan Diagnostic Tests Pen dingHIV-1/O/2 10/26/24Repository Sample, Serum 10/26/24 11/06/2024 Ambulatory Pharmacy Functional Status Combined list of recent functional and cognitive assessments recorded at [facility] and [facility] (VA).VA Functional Sierra Measurement (FIM) Scale: 1 = Total Assistance (Subject = 0% +), 2 = Maximal Assistance (Subject = 25% +), 3 = Moderate Assistance (Subject = 50% +), 4 = Minimal Assistance (Subject = 75% +), 5 = Supervision, 6 = Modified Sierra (Device), 7 = Complete Sierra (Timely, Safely). Assessment Date/Time Source Assessment Type Assessment Skill Assessment Score Assessment Details No data available for this section
--- OUTSIDE RECORDS SUMMARY | 2024-11-06 12:44 | XMS_ITS ---
Author Organization Marcos Newman MD Address [address] [place], [place] [id number] Care Team Providers Care Mold Shifter Name Role Phone Marcos Newman Primary Care Provider [phone] Results Component Value Reference Range Notes PSA,Total (Free>4and<10) (No t yet reviewed by provider) Interpretation: Performing Lab:[facility], [address] [place] [phone] Notes/Report: PSA,Total (Free>4and<10) 3.56 0.00-4.00 ng/mL A [...] Marcos Newman MD [address] [place] [id number] 11/06/2024 Marcos Newman Elevated PSA R97.20 Assessments Encounter Date Diagnosis (ICD Code) Assessment Notes Treatment Notes Treatment Clinical Notes Section Notes 11/06/2024 Elevated PSA (ICD-10 - R97.20) Plan Of Treatment Pending Test Test Name Order Date PSA,Total (Free>4and<10) 11/06/2024 Next Appt Details Provider Name:Marcos quevedor, 11/27/2024 07:45:00 AM, [address], [address], [place], [id number], Provider Name:Marcos Marroquin ier, 03/12/2025 07:30:00 AM, [address], [address], [place], [id number], Provider Name:Marcos Marroquin ier, 09/17/2025 07:00:00 AM, [address], [address], [place], [phone], Provider Name:Marcos Marroquin ier, 09/24/2025 08:00:00 AM, [address], [address], [place], [phone], Progress Notes * Beka BERNABE TDOB: [birth year] (59 yo M)Acc No.[id number]:11/06/2024 Progress Note Patient:?NAELBeka Vasyl Provider:?Marcos Newman MD :1965???Age:59 Y???Sex:Male Jhonny e:11/06/2024 Address:[address] [place] [address] , [place] Subjective: * Chief Complaints: * ???1. PSA. * Medical History:? Objective: * Vitals:? Assessment: * Assessment: 1.?Elevated PSA - R97.20??? Plan: * Treatment: * Procedure Codes:?70524 VENIP UNCT, ROUTINE* * * The named appointment provid er may or may not be the originator of this progress note, and it is not deemed complete until electronically signed by the appointment provider. Sign off status: Pending * Provider:?Marcos Newman MD Date:?0 11/06/2024 Generated for Carter taylor/Elaine/eTransmitting on:?11/06/2024 12:44 PM EDT
--- OUTSIDE RECORDS SUMMARY | 2024-11-06 12:44 | XMS_ITS ---
Author Organization Marcos Newman MD Address [address] [place] [id number] Care Team Providers Care Application Development Liaison Name Role Phone Marcos Newman Primary Care Provider [phone] Results Component Value Reference Range Notes PSA Free and Total Reviewed date:10/16/2024 09:14:12 AM Interpretation:cback 10/16 psa Performing Lab:[facility], [address] [place] [address] [place] [address] Notes/Report: Prostate Specific Ag Total 4.8 < OR = 4.0 ng/ mL Percent Free Prostate Spec Ag 13 >25 % (calc ) PSA(ng/mL) Free PSA(%) Estimated(x) Probability of Cancer(as%) 0-2.5 (*) Approx. 1 2.6-4.0(1) 0-27(2) 24(3) 4.1-10(4) 0-10 56 11-15 28 16-20 20 21-25 16 >or =26 8 >10(+) N/A >50 References:(1)Saleme et al.:Urology 60: 469-474 (2002) (2)Saleem et al.:J.Urol 168: 922-925 (2001) Free PSA(%) Sensitivity(%) Specificity(%) < or = 25 85 19 < or = 30 93 9 (3)Saleem et al.:TRAE 277: 0657-7798 (1996) (4)Catalona et al.:TRAE 279: 6699-0654 (1997) (x)These estimates vary with age, ethnicity, [...] mind. PSA was performed using the [place] Immunoassay method. Values obtained from different assay methods cannot be used interchangeably. PSA levels, regardless of value, should not be interpreted as absolute evidence of the presence or absence of disease. THIS TEST WAS PERFORMED AT: [facility] [address] [place] [phone] RONY HOWE MD Free Prostate Spec Ag 0.6 REASON FOR VISIT PSA Encounters Encounter Location Date Provider Diagnosis Marcos Newman MD [address] [place] [id number] 10/09/2024 Marcos Newman Rising PSA level R97.20 and Elevated PSA R97.20 Assessments Encounter Date Diagnosis (ICD Code) Assessment Notes Treatment Notes Treatment Clinical Notes Section Notes 10/09/2024 Rising PSA level (ICD-10 - R97.20) 10/09/2024 Elevated PSA (ICD-10 - R97.20) Plan Of Treatment Next Appt Details Provider Name:Marcos bella, 11/27/2024 07:45:00 AM, [address] [place] [address], [phone], Provider Name:Marcos bella, 03/12/2025 07:30:00 AM, [address] [place] [address], [address], [phone], Provider Name:Marcos bella, 09/17/2025 07:00:00 AM, [address] [place] [address], [phone], Provider Name:Marcos bella, 09/24/2025 08:00:00 AM, [address] [place] [address], [phone], Progress Notes * Beka BERNABE TDOB: [birth year] (59 yo M)Acc No.[id number]:10/09/2024 Progress Note Patient:?Beka BERNABE Provider:?Marcos Newman MD :1965???Age:59 Y???Sex:Male Jhonny e:10/09/2024 Address:[address] [place] [address], [facility] Subjective: * Chief Complaints: * ???1. PSA. * Medical History:? Objective: * Vitals:? Assessment: * Assessment: 1.?Rising PSA level - R97.20 (Primary)???2.?Elevated PSA - R97.20??? Plan: * Treatment: * Procedure Codes:?28258 VENIP UNCT, ROUTINE* * * The named appointment provid er may or may not be the originator of this progress note, and it is not deemed complete until electronically signed by the appointment provider. Sign off status: Pending * Provider:?Marcos Newman MD Date:?0 10/09/2024 Generated for Carter taylor/Elaine/eTransmitting on:?11/06/2024 12:44 PM EDT
== END 2024-11-06 10:35 | disposition home or self-care (01) ==
LOC: HO.LNP 10:34
PROVIDERS: Visit Provider Internal Medicine
DX: Z12.5 Encounter for screening for malignant neoplasm of prostate (principal); R97.20 Elevated prostate specific antigen [PSA]
CPT/HCPCS: 84153

== ENCOUNTER 2024-12-30 09:41 | Outpatient (REF) | payer BC, SELFPAY ==
[2024-12-30 10:44] LABS: PSA,Total (Free>4and<10) 3.62 ng/mL (0.00-4.00)
--- OUTSIDE RECORDS SUMMARY | 2024-12-30 10:44 | XMS_ITS | Patient Health Record ---
Author Organization [facility] Address [address] [place] [address] Care Team Providers Care Queen'S Counsel Name Role Phone Marcos Newman MD Primary Care Provider Herman Contreras Unavailable [phone] Allergies No Known Allergies Reason For Referral No Information Medications Medication SIG (Take, Route, Fr equency, Duration) Notes Start Date End Date Status Multivitamin Active Lisinopril 10 MG Orally Act carlitos Immunizations Vaccine Route Administration Date Status Comme nts Influenza Unknown 04/24/2021 Administered Problems Problem Type SNOMED Code ICD Code Onset Dates Problem Status W/U Status Risk Notes Problem [id number] Encounter for screening for malignant neoplasm of colon (Z12.11) Active confirmed Problem History of adenomatous polyp of colon (032666500) History of adenomatous polyp of colon (Z86.010) Active confirmed Problem Pre-procedure evaluation check (279817188) Encounter for other preprocedural examination (Z01.818) Active confirmed Problem Screening for malignant neoplasm of rectum (913059492) Encounter for screening for malignant neoplasm of rectum (Z12.12) Active confirmed Problem 43429444 Preprocedural examination (Z01.818) Active confirmed Problem History of colon polyps (Z86.010) Active confirmed Problem Diverticulosis of colon (408431024) Diverticulosis of colon (K57.30) Active confirmed Plan Of Treatment Future Test Test Name Order Date COLONOSCOPY 06/08/2016 COLONOSCOPY 01/11/2022 Insurance Providers Payer Name Payer Address Payer Phone Subscriber Number Group Number Insured Name Patient Relationship to Insured Coverage Start Date Coverage End Date [facility] [address] [place], [place] [id number] BRIANNA NAYAK Self - patient is the insured Medical (General) History Medical History History ICD Code Hypertension Denies ME,DM,CVA,Lung disease,renal dise ase COVID positive x 2 in 07/2019 and 11/2021 Colonoscopy 08/2016 1.5cm tubular adenoma removed Surgical History Surgery Date(Month/Year) Umbilical hernia repair x 2
== END 2024-12-30 09:42 | disposition home or self-care (01) ==
LOC: HO.LNP 09:41
PROVIDERS: Visit Provider Internal Medicine
DX: R97.20 Elevated prostate specific antigen [PSA] (principal); Z12.5 Encounter for screening for malignant neoplasm of prostate
CPT/HCPCS: 84153

== ENCOUNTER 2025-03-12 11:29 | Outpatient (REF) | payer BC, SELFPAY ==
[2025-03-12 12:27] LABS: PSA,Total (Free>4and<10) 3.93 ng/mL (0.00-4.00)
== END 2025-03-12 11:30 | disposition home or self-care (01) ==
LOC: HO.LNP 11:29
PROVIDERS: Visit Provider Internal Medicine
DX: Z12.5 Encounter for screening for malignant neoplasm of prostate (principal); R97.20 Elevated prostate specific antigen [PSA]
CPT/HCPCS: 84153

== ENCOUNTER 2025-03-25 12:55 | Outpatient (AMB) | payer BC, SELFPAY ==
--- OUTSIDE RECORDS SUMMARY | 2024-10-16 03:30 | XMS_ITS ---
Author Organization Marcos Newman MD Address [address] [place] [id number] Care Team Providers Care General Intern Name Role Phone Marcos Newman Primary Care Provider Allergies No Known Allergies Results Component Value Reference Range Notes Urinalysis and Microscopic Reviewed date:10/18/2024 09:31:32 AM Interpretation: Performing Lab:[facility], [address] [place] [phone] Notes/Report: Color Urine Yellow Appearance Urine Clear PH 5.0 5.0-9.0 Glucose Urine UA Negative Negative mg/dL Urine Blood Negative Negative Specific [place] - Urine 1.020 1.005-1.025 Urine Protein Negative Neg-Trace mg/dL Urine Ketones Negative Negative mg/dL Nitrite Urine Negative Negative Leukocyte Esterase Urine Negative Negative RBC Urine 0-2 0-2 /HPF WBC Urine 0-5 0-5 /HPF Squamous Epithelial Cell Urine 0-2 0-2 /HPF Bacteria Urine None Seen None Seen Hyaline Casts Urine 0-2 0-2 /LPF Urine Culture Reviewed date:10/18/2024 09:31:10 AM Interpretation: Performing Lab:[facility], [address] [place] [phone] Notes/Report: Urine Culture Report Result Urine Culture [...] Location Date Provider Diagnosis Marcos Newman MD [address] [place] [address] [place] [phone] 10/16/2024 Marcos Newman Elevated PSA R97.20 and [...] Up: 4 Weeks, Reason: Provider Name:Marcos bella, 06/12/2025 08:00:00 AM, [address] [place] [address], [address], [phone], Provider Name:Marcos bella, 06/15/2025 08:45:00 AM, [address] [place] [address], [address], [phone], Provider Name:Marcos bella, 09/17/2025 07:00:00 AM, [address] [place] [address], [address], [phone], Provider Name:Marcos bella, 09/24/2025 08:00:00 AM, [address] [place] [address], [address], [phone], Progress Notes * Beka BERNABE TDOB: [birth year] (59 yo M)Acc No.[id number]:10/16/2024 Progress Notes Patient: Beka ELLIS Provider: Jono Newman MD :1965 A ge:59 Y S ex:Male Date:10/16/2024 Address:[address] [place] [address] [place] Subjective: * Chief Complaints: * 3 WEEK [...] MD Date: 0 10/16/2024 Generated for Carter taylor/Elaine/Prabhakaritting on: 0 03/25/2025 03:16 PM EDT History and Physical Notes * HPI (History [...]
--- OUTSIDE RECORDS SUMMARY | 2024-11-06 03:45 | XMS_ITS ---
Author Organization Marcos Newman MD Address [address] [place], [place] [phone] Care Team Providers Care Railway Track Plant Operator Name Role Phone Marcos Newman Primary Care Provider Results Component Value Reference Range Notes PSA,Total (Free>4and<10) Reviewed date:12/04/2024 08:54:57 AM Interpretation:12-04-2024 Performing Lab:[facility], [address] [place] [phone] Notes/Report: PSA,Total (Free>4and<10) 3.56 0.00-4.00 ng/mL A [...] Date Provider Diagnosis Marcos Newman MD [address] [place] [phone] 11/06/2024 Marcos Newman Elevated PSA R97.20 Assessments Encounter Date Diagnosis (ICD Code) Assessment Notes Treatment Notes Treatment Clinical Notes Section Notes 11/06/2024 Elevated PSA (ICD-10 - R97.20) Plan Of Treatment Next Appt Details Provider Name:Marcos bella, 06/12/2025 08:00:00 AM, [address], [address], [place], [place], [phone], Provider Name:Marcos Marroquin ier, 06/15/2025 08:45:00 AM, [address], [address], [place], [place], [phone], Provider Name:Marcos Marroquin ier, 09/17/2025 07:00:00 AM, [address], [address], [place], [phone], Provider Name:Marcos Marroquin ier, 09/24/2025 08:00:00 AM, [address], [address], [place], [place], [phone], Progress Notes * Beka BERNABE TDOB: [birth year] (60 yo M)Acc No.[id number]:11/06/2024 Progress Note Patient: Beka ELLIS Provider: Jono Newman MD :1965 A ge:59 Y S ex:Male Date:11/06/2024 Address:[address] [place] [address], [place] Subjective: * Chief Complaints: * 1 . [...] Pending * Provider: Jono Newman MD Date: 11/06/2024 Generated for Carter taylor/Elaine/Prabhakaritting on: 03/25/2025 03:16 PM EDT
--- OUTSIDE RECORDS SUMMARY | 2024-12-04 05:15 | XMS_ITS ---
Author Organization Marcos Newman MD Address [address] [place] [id number] Care Team Providers Care Electrical Electronics Engineer Name Role Phone Marcos Newman Primary Care [...] kg/m2 12/04/2024 weight is down 3 pounds [facility] e 10-16-24 Encounters Encounter Location Date Provider Diagnosis Marcos Newman MD [address] [place], [place] [phone] 12/04/2024 Marcos Newman Elevated PSA R97.20 and [...] Follow Up: 3 Months, Reason: Provider Name:Marcos Radha Lopez quevedor, 06/12/2025 08:00:00 AM, [address] [place] [address], [facility], [place], [place], [phone], Provider Name:Marcos Radha Lopez ier, 06/15/2025 08:45:00 AM, [address] [place] [address], [facility], [place], [place], [phone], Provider Name:Marcos Garcia Lopez bella, 09/17/2025 07:00:00 AM, [address] [place] [address], [facility], [place], [place], [phone], Provider Name:Marcos bella, 09/24/2025 08:00:00 AM, [address] [place] [address], [address] [facility], [place], [place], [phone], Progress Notes * Beka BERNABE TDOB: [birth year] (59 yo M)Acc No.[id number]:12/04/2024 Patient: Beka ELLIS Provider: Jono Newman MD :1965 A ge:59 Y S ex:Male Date:12/04/2024 Address:[address] [place] [address] [id number] Subjective: * Chief Complaints: * 4 WK F/U/ must see PSA * HPI: S ymptom(s): patient is a 59 yo male here for 4 week follow up visit and discussion of PSA. * ROS: G eneral/Constitutional: Denies C hills. Miguelito enies F atigue. D enies F ever. D enies H eadache. E NT: Denies S ore throat. R espiratory: Denies C ough. Miguelito enies S hortness of breath at rest. [...] MD Date: 0 12/04/2024 Generated for Carter taylor/Elaine/Prabhakaritting on: 0 03/25/2025 03:17 PM EDT History and Physical Notes * [...]
--- OUTSIDE RECORDS SUMMARY | 2024-12-30 03:30 | XMS_ITS ---
Author Organization Marcos Newman MD Address [address] [phone] Care Team Providers Care Outdoor Guide Name Role Phone Marcos Newman Primary Care Provider Results Component Value Reference Range Notes PSA,Total (Free>4and<10) Reviewed date:03/13/2025 01:01:27 PM Interpretation:03-12-25 Performing Lab:[facility], [address] [place] [phone] Notes/Report: PSA,Total (Free>4and<10) 3.62 0.00-4.00 ng/mL A [...] Date Provider Diagnosis Marcos Newman MD [address] [place] [id number] 12/30/2024 Marcos Newman Elevated PSA R97.20 Assessments Encounter Date Diagnosis (ICD Code) Assessment Notes Treatment Notes Treatment Clinical Notes Section Notes 12/30/2024 Elevated PSA (ICD-10 - R97.20) Plan Of Treatment Next Appt Details Provider Name:Marcos Marroquin ier, 06/12/2025 08:00:00 AM, [address], [address], [place], [phone], Provider Name:Marcos Marroquin ier, 06/15/2025 08:45:00 AM, [address], [address], [place], [phone], Provider Name:Marcos Marroquin ier, 09/17/2025 07:00:00 AM, [address], [address], [place], [phone], Provider Name:Marcos Marroquin ier, 09/24/2025 08:00:00 AM, [address], [address], [place], [place], [phone], Progress Notes * LUIGIBeka ALCANTARA TDOB: [birth year] (60 yo M)Acc No.[id number]:12/30/2024 Progress Note Patient: Beka ELLIS Provider: Jono Newman MD :1965 A ge:59 Y S ex:Male Date:12/30/2024 Address:[address] [place] [address], [place] Subjective: * Chief Complaints: * 1 . [...] Pending * Provider: Jono Newman MD Date: 12/30/2024 Generated for Carter taylor/Elaine/Prabhakaritting on: 03/25/2025 03:16 PM EDT
--- OUTSIDE RECORDS SUMMARY | 2025-03-12 03:30 | XMS_ITS ---
Author Organization Marcos Newman MD Address [address] [place] [id number] Care Team Providers Care Field Rep Name Role Phone Marcos Newman Primary Care Provider [phone] Allergies No Known Allergies Results Component Value Reference Range Notes PSA,Total (Free>4and<10) Reviewed date:03/12/2025 12:47:38 PM Interpretation: Performing Lab:[facility], [address] [place] [phone] Notes/Report: PSA,Total (Free>4and<10) 3.93 0.00-4.00 ng/mL A [...] Status Risk Notes Problem Obese class II (778028354289 105) BMI 39.0-39.9,a dult (Z68.39) Active confirmed Vital Signs Blood pressure systolic 122 mm Hg 03/12/20 25 Blood pressure diastolic 88 mm Hg 025 Height 67.5 in 03/12/2025 Weight 258 lbs 03/12/2025 BMI 39.81 kg/m2 03/12/2025 weight is down 4 pounds [facility] e 12-04-24 Encounters Encounter Location Date Provider Diagnosis Marcos Newman MD [address] [place] [address] [place] [phone] 03/12/2025 Marcos Newman Elevated PSA R97.20 ; [...] apnea) (ICD-10 - G47.33) needs referral to [facility] [place] Plan Of Treatment Treatment Notes Assessment Notes Elevated PSA has decreased from w hen he had the prostate infection. will recheck BMI 39.0-39.9,adult discussed diet KALINA (obstructive sleep apnea) needs refe rral to [facility] sleep medicine Future Test Test Name Order Date PSA,Total (Free>4and<10) 06/12/2025 Referrals Referral Date Details 03/12/2025 03/12/2025, needs eep study, Emilia Alexander Next Appt Details Follow Up: 3 Months, Reason: Provider Name:Marcos Marroquin ier, 06/12/2025 08:00:00 AM, [address] [place] [address], [address], [place], [place], [phone], Provider Name:Marcos Marroquin ier, 06/15/2025 08:45:00 AM, [address] [place] [address], [address], [place], [place], [phone], Provider Name:Marcos Marroquin ier, 09/17/2025 07:00:00 AM, [address] [place] [address], [address], [place], [place], [phone], Provider Name:Marcos Marroquin ier, 09/24/2025 08:00:00 AM, [address] [place] [address], Suite [facility], [place], [place], [phone], Progress Notes * Beka BERNABE TDOB: [birth year] (60 yo M)Acc No.[id number]:03/12/2025 Progress Notes Patient: Beka ELLIS Provider: Jono Newman MD :1965 A ge:60 Y S ex:Male Date:03/12/2025 Address:[address] [place] [address] [id number] Subjective: * Chief Complaints: * 6 MO F/U/must see PSA * HPI: S ymptom(s): patient is a 60 yo male here for 6 month follow up and discussion of recent PSA. * ROS: G eneral/Constitutional: Denies Wei hills. D enies F atigue. D enies F ever. D enies H eadache. E NT: Denies S ore throat. R espiratory: Denies Wei ough. D enies S hortness of breath [...] PSA - R97.20 (Primary) 2 . B [place] 39.0-39.9,adult - Z68.39 ? 3 . O SA (obstructive sleep apnea) - G47.33 Plan: * Treatment: 2. B OH 39.0-39.9,adult Notes: discussed diet 3. O SA (obstructive sleep apnea) Notes: needs referral to [facility] [place] medicine ? Referral To:Emilia Alexander Neurology Reason:needs sleep study * Procedure Codes: 3 6415 VENIPUNCT, ROUTINE* * Follow Up: 3 Months * * Sign off status: Completed true * Provider: Jono Newman MD Date: 0 03/12/2025 Generated for Carter taylor/Elaine/Prabhakaritting on: 0 03/25/2025 [...]
--- NOTE | 2025-03-25 12:58 | MHC.OFFVIS ---
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 Patient states snoring. HST done about 6years ago inconclusive. Goes to bed 10-12 wakes up 6-6:45. No daytime fatigue but can fall sleep easily. Allergies lisinopril Adverse Reaction (Verified 03/25/25 13:02) Cough HPI Comments Details: 60 year old male presents for an evaluation of sleep apnea, he was referred to us by Dr. Newman. He is an [employer] . He had an HST >6 years ago and it was inconclusive, then he became very frustrated due to billing and insurance issues. His says he snores loudly and has not witnessed apneas. He falls asleep easily and can fall asleep anywhere. He denies morning headaches, jaw pain, clenching and or bruxism. PSA was elevated and prostatitis Jun 2024, followed by his pcp. Restless leg symptoms, he denies. 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 Boogie, November 2023, and Apr 2024. HTN is well managed with Valsartan 160mg. He goes to bed at 11pm and gets up at 6am, with 2 bathroom breaks. Mood, memory and diet is stable. FH denies alzheimers, seizures, strokes, or bells palsey. Sister 1 had breast cancer and passed at 52. Sister 2 had melanoma at 64, living. Mom 82. [facility] Medical History History of lipoma (05/2022) KALINA (obstructive sleep apnea) History of COVID-19 HTN (hypertension) Surgical History Hx of LASIK Hx of umbilical hernia repair H/O colonoscopy Social History Alcohol intake: never Patient Tobacco Use Status: Never used Tobacco Physical Exam Vital Signs: Last Vital Signs Pulse 79 03/25/25 12:59 BP 128/82 03/25/25 12:59 Pulse Ox 95 03/25/25 12:59 Oxygen Delivery Method Room Air 03/25/25 12:59 BMI result Body Mass Index 40.1 Const General: cooperative, comfortable and no acute distress Nutritional Appearance: obese Orientation/consciousness: patient oriented x3 HEENT Face and sinus: Yes face symmetric Teeth and gingiva: other (mallampti score is 4) Eyes Pupils: Equal, round and reactive pupils present Neck Neck: Yes full ROM Resp Effort & Inspection: normal respiratory effort and able to speak in complete sentences Neuro General: patient oriented x3 and moves all extremities Cranial nerves: Yes Facial sensation intact/muscles of mastication intact, Yes Equal, round and reactive pupils present, Yes Normal accommodation reflex present, Yes Nystagmus not present, Yes Normal facial strength present, Yes Midline tongue present, Yes Ability to bilaterally rotate head present and Yes Ability to bilaterally elevate shoulders present Cognition (Neuro): normal cognition Gait exam (Neuro): Normal gait present Motor exam (neuro): 5/5 motor strength present throughout and Normal motor muscle tone present throughout Psych Appearance: grossly normal Mental Status: mental status grossly normal Thought process: Normal thought process present Thought content: Normal thought content present Assessment & Plan Assessment & Plan (1) Excessive daytime sleepiness: Code(s): G47.19 - Other hypersomnia Category: Medical (2) Chronic fatigue: Code(s): R53.82 - Chronic fatigue, unspecified Category: Medical Plan HST to r/o kalina Chronic fatigue labs to r/o anemia and deficiencies. Orders: Orders RT home sleep study 03/25/25 G47.19 - Other hypersomnia, R53.82 - Chronic fatigue, unspecified Vitamin D 25-OH Total 03/25/25 R53.82 - Chronic fatigue, unspecified Vitamin B12 and Folate 03/25/25 R53.82 - Chronic fatigue, unspecified TSH reflex Free T4 03/25/25 R53.82 - Chronic fatigue, unspecified Methylmalonic Acid 03/25/25 G47.9 - Sleep disorder, unspecified, R53.82 - Chronic fatigue, unspecified, R53.83 - Other fatigue Hemoglobin A1c 03/25/25 R53.82 - Chronic fatigue, unspecified Vitamin B6 03/25/25 R53.82 - Chronic fatigue, unspecified Vitamin B1 03/25/25 R53.82 - Chronic fatigue, unspecified Homocysteine 03/25/25 G47.9 - Sleep disorder, unspecified, R53.82 - Chronic fatigue, unspecified, R53.83 - Other fatigue Ferritin 03/25/25 R53.82 - Chronic fatigue, unspecified Coding Level of Care Code New Pt Level 4 (17398) Diagnoses Excessive daytime sleepiness G47.19 Chronic fatigue R53.82 Sleep Questionnaire Difficulty falling asleep: No Difficulty staying asleep?: Yes Number of arousals: 2-3x Snoring: Yes Witnessed apneas: No Gasping arousals: No Nocturia: No GERD: No Vivid dreams: No Acting out dreams: No Abnormal behavior in sleep: No Abnormal movements in sleep: No Morning headaches: No Excessive daytime sleepiness: No Daytime naps: No Restless legs: No Hallucinations: No Sleep paralysis: No Drop attacks: No Sleep Study: Yes CPAP: No
[2025-03-25 12:59] VITALS: BP 128/82; PULSE 79; O2SAT 95; BMI 40.1
--- OUTSIDE RECORDS SUMMARY | 2025-03-25 15:06 | XMS_ITS | Continuity of Care Document ---
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 Status Comments Source influenza, injectable, quadrivalent- pf 2021 [id number] GlaxoSmithKli ne complet ed influenza , injectabl e, quadrival ent-pf 05/06/22 Given Ambulat ory Pharmac y influenza, seasonal, injectable 2020 [id number] 141 GlaxoSmithKli ne complet ed influenza , seasonal, injectabl e 04/19/21 Given Ambulat ory Pharmac y COVID Vaccine Moderna 2020 [id number] complet ed COVID Vaccine Moderna 09/17/20 Given Ambulat ory Pharmac y COVID Vaccine Moderna 2020 [id number] complet ed COVID Vaccine Moderna 08/15/20 Given Ambulat ory Pharmac y influenza, injectable, quadrivalent- pf 2019 [id number] 150 Seqirus complet ed influenza , injectabl e, quadrival ent-pf 06/01/20 Given Ambulat ory Pharmac y poliovirus vaccine, inactivated 2019 [id number] 10 sanofi pasteur complet ed polioviru s vaccine, inactivat ed 09/15/19 Given Ambulat ory Pharmac y typhoid Vi capsular polysaccharid e vac 2019 [id number] sanofi pasteur complet ed typhoid Vi capsular polysacch aride vac 09/15/19 Given Ambulat ory Pharmac y anthrax vaccine 2019 [id number] [employer] complet ed anthrax vaccine 09/15/19 Given Ambulat ory Pharmac y anthrax vaccine 2019 [id number] 24 [employer] complet ed anthrax vaccine 08/03/19 Given Ambulat ory Pharmac y influenza, injectable, quadrivalent- pf 2018 [id number] 150 Seqirus complet ed influenza , injectabl e, quadrival ent-pf 06/11/19 Given Ambulat ory Pharmac y tuberculin purified protein derivative 2018 [id number] 96 sanofi pasteur complet ed tuberculi n purified protein derivativ e 09/04/18 Given Ambulat ory Pharmac y tetanus, diphtheria, acellular pertu is 2017 [id number] 115 sanofi pasteur complet ed tetanus, diphtheri a, acellular pertussis 06/04/18 Given Ambulat ory Pharmac y tetanus toxoid, reduced diphtheria toxoid, and acellular pertu is vaccine, adsorbed 4 2017 [id number] 115 Sanofi Pasteur ([facility]) complet ed tetanus toxoid, reduced diphtheri a toxoid, and acellular pertussis vaccine, adsorbed DoD influenza, seasonal, injectable 2017 [id number] 141 GlaxoSmithKli ne complet ed influenza , seasonal, injectabl e 05/14/18 Given Ambulat ory Pharmac y Influenza, seasonal, injectable 1 2017 [id number] 141 [facility] ([facility]) complet ed Influenza , seasonal, injectabl e DoD influenza, injectable, quadrivalent 2016 [id number] 158 [employer] comple t ed influenza , injectabl e, quadrival ent 05/26/17 Given Ambulat ory Pharmac y influenza, injectable, quadrivalent, contains preservative 0 2016 [id number] 158 (IDB) complet ed influenza , injectabl e, quadrival ent, contains preservat carlitos DoD measles/mumps /rubella virus vaccine 2016 [id number] 03 Merck & Company Inc complet ed measles/m umps/rube lla virus vaccine 08/25/16 Given Ambulat ory Pharmac y measles, mumps and rubella virus vaccine 2 2016 [id number] 03 Merck (MSD) complet ed measles, mumps and rubella virus vaccine DoD measles/mumps /rubella virus vaccine 2016 [id number] 03 Merck & Company Inc complet ed measles/m umps/rube lla virus vaccine 07/28/16 Given Ambulat ory Pharmac y measles, mumps and rubella virus vaccine 1 2016 [id number] 03 Merck (MSD) complet ed measles, mumps and rubella virus vaccine DoD influenza, seasonal, injectable 2015 [id number] 141 Seqirus complet ed influenza , seasonal, injectabl e 05/07/16 Given Ambulat ory Pharmac y Influenza, seasonal, injectable 1 2015 [id number] 141 Seqirus (SEQ) comple t ed Influenza , seasonal, injectabl e DoD influenza, seasonal, injectable-pf 2014 [id number] 140 CSL [employer]ring complet ed influenza , seasonal, injectabl e-pf 04/18/15 Given Ambulat ory Pharmac y Influenza, seasonal, injectable, preservative free 0 2014 [id number] 140 [employer] (L) complet ed Influenza , seasonal, injectabl e, preservat carlitos free DoD influenza, seasonal, injectable-pf 2013 [id number] 140 CSL Behring complet ed influenza , seasonal, injectabl e-pf 04/12/14 Given Ambulat ory Pharmac y Influenza, seasonal, injectable, preservative free 1 2013 [id number] 140 CS [employer]otherap[employer] Inc. (CSL) complet ed [...] intraderm al DoD Influenza, injectable, MDCK-pf 2012 [id number] 153 Novartis Pharmaceutica ls complet ed Influenza , injectabl e, MDCK-pf 06/08/13 Given Ambulat ory Pharmac y Influenza, injectable, Madin [place] Canine Kidney, preservative free 0 2012 [id number] 153 Novartis Pharmaceutica l Ac. (NOV) complet ed Influenza , injectabl e, Madin [place] Canine Kidney, preservat carlitos free DoD tuberculin purified protein derivative 2012 zzLef t Arm [id number] 96 sanofi pasteur complet ed Patient Tolerance : Negative Ambulat ory Pharmac y tuberculin skin test; purified protein derivative solution, intradermal 0 2012 ERICA FORDE [id number] 96 Sanofi Pasteur ([facility]) complet ed tuberculi n skin test; purified protein derivativ e solution, intraderm al DoD influenza, seasonal, injectable-pf 2011 [id number] 140 CSL Behring complet ed influenza , seasonal, injectabl e-pf 05/18/12 Given Ambulat ory Pharmac y Influenza, seasonal, injectable, preservative free 17 2011 [id number] 140 [employer] (CSL) complet ed Influenza , seasonal, injectabl e, preservat carlitos free DoD influenza virus vaccine, live 2010 [id number] 111 [employer] comple t ed influenza virus vaccine, live 06/11/11 Given Ambulat ory Pharmac y influenza virus vaccine, live, attenuated, for intranasal use 0 2010 [id number] 111 [employer] (MED) complet ed influenza virus vaccine, live, attenuate d, for intranasa l use DoD influenza virus vaccine, live 2009 [id number] 111 [employer] comple t ed influenza virus vaccine, live 05/08/10 Given Ambulat ory Pharmac y influenza virus vaccine, live, attenuated, for intranasal use 1 2009 [id number] 111 [employer] (MED) complet ed influenza virus vaccine, live, attenuate d, for intranasa l use DoD Novel influenza-H1N 1-09, injectable 2009 [id number] 1 127 Novartis Pharmaceutica complet ed Novel influenza -N1B9-19, injectabl e 08/15/09 Given Ambulat ory Pharmac y Novel influenza-H1N 1-09, injectable 1 2009 [id number] 1 127 Novartis Pharmaceutica l Ac. (NOV) complet ed Novel influenza -M3G1-54, injectabl e DoD influenza virus vaccine, live 2008 [id number] 111 Medimmune Inc comple t ed influenza virus vaccine, live 05/08/09 Given Ambulat ory Pharmac y influenza virus vaccine, live, attenuated, for intranasal use 1 2008 [id number] 111 [employer] (MED) complet ed influenza virus vaccine, live, attenuate d, for intranasa l use DoD influenza virus vaccine,split 2007 [id number] 15 GlaxoSmithKli ne complet ed influenza virus vaccine,s plit 06/28/08 Given Ambulat ory Pharmac y influenza virus vaccine, split virus (incl. purified surface antigen)-reti red CODE 1 2007 [id number] 15 [facility] (B) complet ed influenza virus vaccine, split virus (incl. purified surface antigen)- retired CODE [facility] tetanus, diphtheria, acellular pertu is 2007 [id number] 115 sanofi pasteur complet ed tetanus, diphtheri a, acellular pertussis 02/26/08 Given Ambulat ory Pharmac y typhoid Vi capsular polysaccharid e vac 2007 [id number] 101 sanofi pasteur complet ed typhoid Vi capsular polysacch aride vac 02/26/08 Given Ambulat ory Pharmac y typhoid Vi capsular polysaccharid e vaccine 1 2007 [id number] 101 Sanofi Pasteur ([facility]) complet ed typhoid Vi capsular polysacch aride vaccine DoD tetanus toxoid, reduced diphtheria toxoid, and acellular pertu is vaccine, adsorbed 1 2007 [id number] 115 Sanofi Pasteur ([facility]) complet ed tetanus toxoid, reduced diphtheri a toxoid, and acellular pertussis vaccine, adsorbed DoD influenza virus vaccine,split 2007 [id number] 15 GlaxoSmithKli ne complet ed influenza virus vaccine,s plit 10/06/07 Given Ambulat ory Pharmac y influenza virus vaccine, split virus (incl. purified surface antigen)-reti red CODE 1 2007 [id number] 15 [facility] ([facility]) complet ed influenza virus vaccine, split virus (incl. purified surface antigen)- retired CODE DoD influenza virus vaccine,split 2005 [id number] 15 Unknown complet ed influenza virus vaccine,s plit 06/23/06 Given Ambulat ory Pharmac y influenza virus vaccine, split virus (incl. purified surface antigen)-reti red CODE 1 2005 [id number] 15 Other (OTH) complet ed influenza virus vaccine, split virus (incl. purified surface antigen)- retired CODE [facility] tetanus-dipht h toxoids (Td) adult/adol 2005 [id number] 09 sanofi pasteur complet ed tetanus-d iphth toxoids (Td) adult/ado l 01/13/06 Given Ambulat ory Pharmac y typhoid vaccine, inactivated 2005 [id number] 101 sanofi pasteur complet ed typhoid vaccine, inactivat ed 01/13/06 Given Ambulat ory Pharmac y tetanus and diphtheria toxoids, adsorbed, preservative free, for adult use (2 Lf of tetanus toxoid and 2 Lf of diphtheria toxoid) 1 2005 [id number] 09 Sanofi Pasteur ([facility]) complet ed tetanus and diphtheri a toxoids, adsorbed, preservat carlitos free, for adult use (2 Lf of tetanus toxoid and 2 Lf of diphtheri a toxoid) [facility] typhoid vaccine, parenteral, other than acetone-kille d, dried 1 2005 [id number] 41 Sanofi Pasteur ([facility]) complet ed typhoid vaccine, parentera l, other than acetone-k illed, dried [facility] influenza virus vaccine,split 2004 [id number] 15 sanofi pasteur complet ed influenza virus vaccine,s plit 06/25/05 Given Ambulat ory Pharmac y influenza virus vaccine, split virus (incl. purified surface antigen)-reti red CODE 1 2004 [id number] 15 Sanofi Pasteur ([facility]) complet ed influenza virus vaccine, split virus (incl. purified surface antigen)- retired CODE [facility] hepatitis B vaccine, adult dosage 0 2004 43 () Not Given hepatitis B vaccine, adult dosage DoD varicella virus vaccine 0 2004 21 () Not Given varicella virus vaccine [facility] influenza virus vaccine, live 2004 [id number] 111 [employer] comple t ed influenza virus vaccine, live 08/15/04 Given Ambulat ory Pharmac y influenza virus vaccine, live, attenuated, for intranasal use 0 2004 [id number] 111 [employer] (MED) complet ed influenza virus vaccine, live, attenuate d, for intranasa l use [facility] typhoid vaccine, inactivated 2003 [id number] 101 sanofi pasteur complet ed typhoid vaccine, inactivat ed 01/06/04 Given Ambulat ory Pharmac y typhoid vaccine, parenteral, other than acetone-kille d, dried 0 2003 [id number] 41 Sanofi Pasteur ([facility]) complet ed typhoid vaccine, parentera l, other than acetone-k illed, dried DoD influenza virus vaccine, whole virus 2003 [id number] 16 sanofi pasteur complet ed influenza virus vaccine, whole virus 09/12/03 Given Ambulat ory Pharmac y influenza virus vaccine, whole virus 0 2003 [id number] 16 Sanofi Pasteur ([facility]) complet ed influenza virus vaccine, whole virus DoD tuberculin purified protein derivative 2002 [id number] 96 sanofi pasteur complet ed tuberculi n purified protein derivativ e 01/10/03 Given Ambulat ory Pharmac y influenza virus vaccine, whole virus 2001 [id number] 16 sanofi pasteur complet ed influenza virus vaccine, whole virus 05/10/02 Given Ambulat ory Pharmac y influenza virus vaccine, whole virus 0 2001 [id number] 16 Sanofi Pasteur ([facility]) complet ed influenza virus vaccine, whole virus DoD meningococcal polysaccharid e (MPSV4) 2001 [id number] 32 sanofi pasteur complet ed meningoco ccal polysacch aride (MPSV4) 12/25/01 Given Ambulat ory Pharmac y tuberculin purified protein derivative 2001 [id number] 96 sanofi pasteur complet ed tuberculi n purified protein derivativ e 12/25/01 Given Ambulat ory Pharmac y meningococcal polysaccharid e vaccine (MPSV4) 0 2001 [id number] 32 Sanofi Pasteur ([facility]) complet ed meningoco ccal polysacch aride vaccine (MPSV4) DoD influenza virus vaccine, whole virus 2000 [id number] 16 sanofi pasteur complet ed influenza virus vaccine, whole virus 06/08/01 Given Ambulat ory Pharmac y influenza virus vaccine, whole virus 0 2000 [id number] 16 Sanofi Pasteur ([facility]) complet ed influenza virus vaccine, whole virus DoD tuberculin purified protein derivative 2000 96 complet ed tuberculi n purified protein derivativ e 08/11/00 Given Ambulat ory Pharmac y influenza virus vaccine, whole virus 2000 [id number] 16 [facility] complet ed influenza virus vaccine, whole virus 08/11/00 Given Ambulat ory Pharmac y influenza virus vaccine, whole virus 0 2000 [id number] [facility] complet ed influenza virus vaccine, whole virus DoD tuberculin purified protein derivative 2000 [id number] 96 [facility] complet ed tuberculi n purified protein derivativ e 07/28/00 Given Ambulat ory Pharmac y tuberculin purified protein derivative 1998 [id number] 96 [facility] complet ed tuberculi n purified protein derivativ e 05/08/99 Given Ambulat ory Pharmac y influenza virus vaccine, whole virus [id number] 16 [facility] complet ed influenza virus vaccine, whole virus 05/08/99 Given Ambulat ory Pharmac y influenza virus vaccine, whole virus 0 19982220 [id number] 16 [facility] ([facility]) complet ed influenza virus vaccine, whole virus DoD typhoid vaccine, live, oral 1998 25 [employer] complet ed typhoid vaccine, live, oral 12/03/98 Given Ambulat ory Pharmac y typhoid vaccine, live, oral 0 1998 25 [employer] (BP) complet ed typhoid vaccine, live, oral DoD measles, mumps and rubella virus vaccine 0 1998 03 () Not Given measles, mumps and rubella virus vaccine DoD influenza virus vaccine, whole virus 19973465 [id number] 16 [facility] complet ed influenza virus vaccine, whole virus 05/09/98 Given Ambulat ory Pharmac y influenza virus vaccine, whole virus 0 19973561 [id number] 16 [facility] ([facility]) complet ed influenza virus vaccine, whole virus DoD tuberculin purified protein derivative 1997 96 [facility] complet ed tuberculi n purified protein derivativ e 05/08/98 Given Ambulat ory Pharmac y hepatitis A adult vaccine 1997 [id number] 52 [employer]ck & Company Inc complet ed hepatitis A adult vaccine 05/08/98 Given Ambulat ory Pharmac y hepatitis A vaccine, adult dosage 2 1997 [id number] 52 Merck (MSD) complet ed hepatitis A vaccine, adult dosage DoD influenza virus vaccine, whole virus [id number] 16 [employer] complet ed influenza virus vaccine, whole virus 08/15/97 Given Ambulat ory Pharmac y hepatitis B adult vaccine 1997 [id number] 43 [employer] Inc complet ed hepatitis B adult vaccine 08/15/97 Given Ambulat ory Pharmac y meningococcal polysaccharid e (MPSV4) 1997 [id number] 32 [employer] complet ed meningoco ccal polysacch aride (MPSV4) 08/15/97 Given Ambulat ory Pharmac y hepatitis A adult vaccine 1997 [id number] 52 [employer] complet ed hepatitis A adult vaccine 08/15/97 Given Ambulat ory Pharmac y influenza virus vaccine, whole virus 0 19976288 [id number] 16 [employer] (Inactive) ([place]) complet ed influenza virus vaccine, whole virus DoD meningococcal polysaccharid e vaccine (MPSV4) 0 1997 [id number] 32 [place] (CON) complet ed meningoco ccal polysacch aride vaccine (MPSV4) DoD hepatitis B vaccine, adult dosage 3 1997 [id number] 43 Merck (MSD) complet ed hepatitis B vaccine, adult dosage DoD hepatitis A vaccine, adult dosage 1 1997 [id number] 52 Merck (MSD) complet ed hepatitis A vaccine, adult dosage DoD hepatitis B adult vaccine 1996 [id number] 43 [employer] complet ed hepatitis B adult vaccine 08/17/96 Given Ambulat ory Pharmac y hepatitis B vaccine, adult dosage 1 1996 [id number] 43 [place] (CON) complet ed hepatitis B [...] ory Pharmac y yellow fever vaccine 1995 [id number] 37 [employer] complet ed yellow fever [...] toxoid) DoD yellow fever vaccine 0 1995 [id number] 37 [place] (CON) complet ed yellow fever [...] trivalent polioviru s vaccine, live, oral DoD Results Combined list of recent chemistry, hematology [...] Prevention' s HIV diagnostic algorithm. Refer to [facility] Lab Guide for additional information : [email or web address] x Testing performed by Jayme lopez [facility] [employer] Miscellan eous Sendouts Repository Sample Received (10/26/24 2:46 PM) 10/26 N [facility] [employer] Encounters Combined list of: 1) Encounters from Department of Veterans Affairs facilities going backup to the last 18 months, not all [facility] inpatient encounters are included; 2) Encounters from 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 Location Location Details Encounter Type Encounter Number Reason For Visit Attending Provider ADM Date DC Date Status Disposition [place] OUTPATIENT [id number] ad inpro medevac MARNIE SPENCE 08/05 Released w/o Limitations [place]) [place] [id number] 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 [facility] SYLVIA JOSHUA 09/01 Released w/o Limitations [place]) [facility] Medical [facility]) OUTPATIENT [id number] Notes Entered by: YASMINE ALCAZAR V 30 Oct 2018 0852 ------- ------- ------- ------- -- OHHP In-Proc essing YASMINE AG V 10/30 Released w/o Limitations [facility] Facility OUTPATIENT [id number] Theater Provider 05/10 Released w/o Limitations Theater Facilit y [id number]-[id number] AMDS Care Not Rendered [id number] 08/22 Discharge Disposition: Home or Self Care 8344R-4 39 AMDS [id number]-439 AMDS Care Not Rendered [id number] 10/25 Discharge Disposition: Home or Self Care 8344R-4 39 AMDS 8344R-439 [facility]DS Outpatient [id number] LEYDI SCHULZ 10/26 Discharge Disposition: Home or Self Care 8344R-4 39 AMDS 8344R-439 AMDS Outpatient [id number] LEYDI SCHULZ 10/27 Discharge Disposition: Home or Self Care 8344R-4 39 AMDS 8344R-439 AMDS Between Visit [id number] 03/25 8344R-4 39 AMDS Procedures Combined list of: 1) Procedures from Department of Veterans Affairs facilities going back up to thelast 18 months, not all [place] non-surgical procedures are included; 2) 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 Procedure Procedure Type Code Date Perfomer Comments Sourc e No data available for this section Ambulatory Pharmacy SKIN TEST; TUBERCULOSIS, INTRADERMAL 3 [facility] Skin Test Anergy Tuberculin Intradermal Skin Test Anergy Tuberculin Intradermal 44907 3 EULA, ERICA H to L forearm [facility] Social History Combined list of available smoking, tobacco, and other social history from Department of Defense and Veterans Affairs facilities. Social History Type Response Date Comment Sourc e This section is an empty social history section. [facility] Assessment and Plan Combined list of future care activities from Department of Defense and Veterans Affairs facilities (e.g., assessment and plan notes, appointments, orders, and referrals). Additional future care activities may be listed in the Plan of Care section. Result Assessment and Plan Date Source Assessment and Plan No data available for this section 03/25/2025 Ambulatory Pharmacy Functional Status Combined list of recent functional and cognitive assessments recorded at Department of Defense and [facility] ([place] Functional [place] Measurement (FIM) Scale: 1 = Total Assistance (Subject = 0% +), 2 = Maximal Assistance (Subject = 25% +), 3 = Moderate Assistance (Subject = 50% +), 4 = Minimal Assistance (Subject = 75% +), 5 = Supervision, 6 = Modified Woodson (Device), 7 = Complete Woodson (Timely, Safely). Assessment Date/Time Source Assessment Type Assessment Skill Assessment Score Assessment Details No data available for this section
--- OUTSIDE RECORDS SUMMARY | 2025-03-25 15:16 | XMS_ITS | Clinical Summary ---
Author Organization [facility] Address [address] [place] [address] Phone Care Team Providers Care Java Lead Name Role Phone Marcos Newman MD Primary Care Provider Allergies No known active allergies Medications lisinopril (PRINIVIL,ZESTR IL) 20 MG tablet Take 20 mg by mouth daily. Active cyclobenzaprine (FLEXERIL) 10 MG tablet Take 1 tablet (10 mg total) by mouth 3 (three) times a day as needed (muscle spasm). 20 tablet 01/26/2023 Active lidocaine (LIDODERM) 5 % Place 1 patch onto the skin daily. Remove & Discard patch within 12 hours or as directed by 30 patch 01/26/2023 Active Social History Tobacco Use Types Packs/Day Years Used Date Smoking Tobacco: Never Passive Smoke Exposure: Never Tobacco Cessation:Counseling Given: Not Answered Alcohol Use Standard Drinks/Week Comments Yes 0 (1 standard drink = 0.6 oz pur e alcohol) social Education Answer Date Recorded Are you interested in more education? Not on isaías e 01/26/2023 Are you concerned about learning? Not on file 01/26/2023 No 01/26/2023 No 01/26/2023 Digital Access Answer Date Recorded No 01/26/2023 No 01/26/2023 Reliable internet access at home? Not on file 01/26/2023 Device with a working camera? Not on file Intimate Partner Violence Answer Date R ecorded Are you denied basic needs s uch as food, clothing, or medical care? No 01/26/2023 In the past 12 months have y ou been in a relationship with a person who hurts, threatens, or tries to control you? No 01/26/2023 Are you denied basic needs s uch as food, clothing, or medical care? No 01/26/2023 In the past 12 months have y ou been in a relationship with a person who hurts, threatens, or tries to control you? No 01/26/2023 Sex and Gender Information Value Date Recorded Sex Assigned at Male 01/26/2023 12:00 PM EDT Legal Sex Male 11:45 AM EDT Gender Identity Male 01/26/2023 12:00 PM EDT Sexual Orientation Straight 01/26/2023 12 :00 PM EDT Last Filed Vital Signs Vital Sign Reading Time Taken Comments Blood Pressure 131/95 01/26/2023 2:10 PM EDT Pulse 83 01/26/2023 2:10 PM EDT Temperature 36.4 C (97.6 F) 01/26/2023 2:10 PM EDT Respiratory Rate 20 01/26/2023 2:10 PM EDT Oxygen Saturation 96% 01/26/2023 2:10 PM EDT Inhaled Oxygen Concentration - - Weight 108.9 kg (240 lb) 01/26/2023 11:55 AM EDT Height 170.2 cm (5' 7 ) 01/26/2023 11:55 AM EDT Body Mass Index 37.59 01/26/2023 11:55 AM EDT Plan of Treatment Health Maintenance Due Date Last Done Comments LIPID PANEL 1965 DEPRESSION SCREENING 1978 HEPATITIS C SCREENING 01/20/1984 HIV ONE-TIME SCREENING (18-65 YEARS) 01/20/1984 SMOKING STATUS SCREENING (Once After 26 Yrs) 01/20/1992 COLOGUARD 2011 COLONOSCOPY 2011 COLORECTAL CANCER SCREENING 2011 FIT TEST 2011 FOBT 2011 SIGMOIDOSCOPY 2011 VIRTUAL COLONOSCOPY 2011 PNEUMOCOCCAL VACCINES (50+ years) (1 of 1 - PCV) 01/20/2016 ZOSTER VACCINES (1 of 2) 01/20/2016 CREATININE LEVEL 01/27/2024 01/26/2023 POTASSIUM LEVEL 01/27/2024 01/26/2023 COVID-19 VACCINE (3 - 2024-25 season) 2024 09/17/2020, 08/15/2020 SCREENING FOR DIABETES 01/26/2026 01/26/2023 Adult Td,Tdap Booster 06/04/2028 06/04/2018 , 02/26/2008, 01/13/2006, Additional history exists HEPATITIS A VACCINES Aged Out 05/08/1998, 08/15/18 98 No longer eligible based on patient's age to complete this topic MENINGOCOCCAL VACCINES (ACWY) Aged Out 12/25/2001, 08/15/1997 No longer eligibl e based on patient's age to complete this topic HIB VACCINES Aged Out No longer eligi ble based on patient's age to complete this topic MENINGOCOCCAL VACCINES (B) Aged Out N o longer eligible based on patient's age to complete this topic Medical Devices Not on file Procedures Procedure Name Priority Date/Time Associated Diagnosis Comments BASIC METABOLIC PANEL STAT 01/26/2023 12:43 PM EDT from Last 3 Months or Most Recently Relevant to Health Maintenance Results * (ABNORMAL) Basic metabolic panel (01/26/2023 12:43 PM EDT) SODIUM 137 133 - 146 mmol/L [facility] CHLORIDE 102 96 - 108 mmol/L [facility] POTASSIUM 4.2 3.3 - 5.1 mmol/L [facility] CO2 25 21 - 35 mmol/L [facility] BUN 15 6 - 19 mg/dL [facility] CREATININE 1.00 0.5 - 1.5 mg/dL [facility] GLUCOSE 107(H) 70 - 99 mg/dL [facility] CALCIUM 9.1 8.4 - 10.3 mg/dL [facility] EGFR 88 >59 mL/min/1.7 3m2 [facility] Comment:Estimated glomerular filtration rate calculated using the CKD-EPI refit equation. ANION GAP 14 10 - 20 mmol/L [facility] Blood 01/26/2023 12:4 3 PM EDT 01/26/2023 1:03 PM EDT us Staci Meeks DO LAB BLOOD ORDERABLES Final R esult [facility] [address], [place] [phone] from Last 3 Months or Most Recently Relevant to Health Maintenance Insurance BLUE CROSS OUT OF STATE PPO BLUE CROSS OUT OF [facility] PPO BLUE CROSS OUT OF [facility] PPO BLUE CROSS OUT OF STATE PPO BLUE CROSS OUT OF STATE PPO BLUE CROSS OUT OF STATE PPO Care Teams Java Lead Relationship Specialty Start Date End Date Marcos Newman MD [address] [place] [address] [place] [address] PCP - General Internal Medicine 01/26/23 Additional Source Comments The information contained in this document represents components of the legal health record. It is not the complete legal health record.[facility]
--- OUTSIDE RECORDS SUMMARY | 2025-03-25 15:16 | XMS_ITS | Patient Health Record ---
Author Organization Marcos Newman MD Address [address] [place], [place] [id number] Care Team Providers Care Assistant Manager Name Role Phone Marcos Newman Primary Care Provider Allergies No Known Allergies Results Component Value Reference Range Notes Urine Culture Reviewed date:08/29/2024 12:30:47 PM Interpretation: Performing Lab:[facility], [address] [place] [phone] Notes/Report: Urine Culture No growth. Complete Blood Count Auto Di ff Reviewed date:09/12/2024 04:29:43 PM Interpretation: Performing Lab:[facility], [address] [place] [phone] Notes/Report: White Blood Count 8.0 4.8-10.8 X10*3/uL [...] NRBC Abs Auto 0.000 0.0-0.012 X10*3/uL Comprehensive [place]. Panel Fa Reviewed date:09/12/2024 04:37:04 PM Interpretation: Performing Lab:[facility], [address] [place] [phone] Notes/Report: Sodium 141 135-145 mmol/L Potassium 4.1 [...] Panel Reviewed date:09/11/2024 12:46:50 PM Interpretation: Performing Lab:[facility], [address] [place] [phone] Notes/Report: Triglycerides 157 <150 mg/dL Desirable Triglyceride: [...] Reviewed date:09/18/2024 09:28:51 AM Interpretation:JASIEL PSA09/18/24 Performing Lab:[address] [phone] Notes/Report: PSA,Total (Free>4and<10) 6.76 0.00-4.00 ng/mL PSA methodology: Hawkins Alinity i Chemiluminescent Microparticle Immunoassay (CMIA) UA ClnCatch+Micro w/rflx Cul t Reviewed date:09/12/2024 04:30:59 PM Interpretation: Performing Lab:[address] [phone] Notes/Report: Urine, Clean Catch Color Urine Yellow Appearance Urine Clear PH 5.5 5.0-9.0 Glucose Urine UA Negative Negative mg/dL Urine Blood Negative Negative Specific [place] - Urine 1.025 1.005-1.025 Urine Protein Negative [...] date:10/16/2024 09:14:12 AM Interpretation:jasiel 10/16 psa Performing Lab:[address] [place] [address] Notes/Report: Prostate Specific Ag Total 4.8 < [...] 30 93 9 (3)Catalona et al.:TRAE 277: 6508-2334 (1996) (4)Catalona et al.:TRAE 279: 0487-1186 (1997) (x)These estimates vary with age, ethnicity, [...] of disease. THIS TEST WAS PERFORMED AT: [facility] [address] [place] [phone] RONY HOWE MD Free Prostate Spec Ag 0.6 PSA,Total (Free>4and<10) Reviewed date:12/04/2024 08:54:57 AM Interpretation:12-04-2024 Performing Lab:[facility], [address] [place] [phone] Notes/Report: PSA,Total (Free>4and<10) 3.56 0.00-4.00 ng/mL A [...] 4.0 and 10.0 ng/mL. PSA methodology: Hawkins Since1910.comnity i Chemiluminescent Microparticle Immunoassay (CMIA) PSA,Total (Free>4and<10) Reviewed date:03/13/2025 01:01:27 PM Interpretation:03-12-25 Performing Lab:[address] [address] Notes/Report: PSA,Total (Free>4and<10) 3.62 0.00-4.00 ng/mL A [...] Microscopic Reviewed date:10/18/2024 09:31:32 AM Interpretation: Performing Lab:[address] [phone] Notes/Report: Color Urine Yellow Appearance Urine Clear PH 5.0 5.0-9.0 Glucose Urine UA Negative Negative mg/dL Urine Blood Negative Negative Specific [place] - Urine 1.020 1.005-1.025 Urine Protein Negative Neg-Trace mg/dL Urine Ketones Negative Negative mg/dL Nitrite Urine Negative Negative Leukocyte Esterase Urine Negative Negative RBC Urine 0-2 0-2 /HPF WBC Urine 0-5 0-5 /HPF Squamous Epithelial Cell Urine 0-2 0-2 /HPF Bacteria Urine None Seen None Seen Hyaline Casts Urine 0-2 0-2 /LPF Urine Culture Reviewed date:10/18/2024 09:31:10 AM Interpretation: Performing Lab:[address] [phone] Notes/Report: Urine Culture Report Result Urine Culture < 10,000 cfu/ml PSA,Total (Free>4and<10) Reviewed date:03/12/2025 12:47:38 PM Interpretation: Performing Lab:[address] [address] Notes/Report: PSA,Total (Free>4and<10) 3.93 0.00-4.00 ng/mL A [...] Hawkins Alinity i Chemiluminescent Microparticle Immunoassay (CMIA) Pathology Reviewed date:07/22/2024 04:36:46 PM Interpretation: Performing Lab:[address] [phone] Notes/Report: -- ---- Name: Beka Bernabe Jr Age/Sex: 59/M : 1965 Unit#: [id number] Attend Dr: Scotty Ragland MD Re07/18/24 Status : [facility] Location: [facility] Disch: -- ---- SPEC : [id number] RECD : 07/18/24-142 STATUS: BRANDY HAMLIN NUM: [id number] ARTURO: 07/18/[address]: Scotty Ragland MD ENTERED: 07/18/24- SP TYPE: Surgical OTHR DR: Marcos Newman [...] No fleshy or necrotic foci are identified. Heating And Refrigeration Inspector sections are submitted in cassettes A1-A6. CEDS Copies To: Marcos Newman MD [facility] [address] [place], [place] [phone] Scotty Ragland MD [facility] [address] [place] [address] [email or web address] CONTINUED ON NEXT PAGE -- ---- Name: Beka Bernabe Jr Age/Sex: 59/M : 1965 Unit#: [id number] Attend Dr: Scotty Ragland MD Re07/18/24 Status : [facility] Location: [facility] Disch: -- ---- SPEC : [id number] RECD : 07/18/24 STATUS: BRANDY BOUBACAR NUM: [id number] ARTURO: 07/18/24-[address] [facility] [address]: Scotty Ragland MD ENTERED: 07/18/24- 23 SP TYPE: Surgical OTHR DR: Marcos Newman MD ORDERED: Sheryl Micro L3 -- ---- Signed (signature on file) Kalie Arnold 07/21/24 1234 -- ---- END OF REPORT Urinalysis Reviewed date:08/28/2024 01:02:26 PM Interpretation: Performing Lab:[facility], [address] [place] [phone] Notes/Report: Color Urine Yellow Appearance Urine Clear PH 5.5 5.0-9.0 Glucose Urine UA Negative Negative mg/dL Urine Blood Negative Negative Specific [place] - Urine 1.020 1.005-1.025 Urine Protein Negative Neg-Trace mg/dL Urine Ketones Negative Negative mg/dL Nitrite Urine Negative Negative Leukocyte Esterase Urine Negative Negative PSA Free and Total Reviewed date:09/12/2024 04:26:56 PM Interpretation: Performing Lab:[address] [address] Notes/Report: Prostate Specific Ag Total 6.3 < OR = 4.0 ng/mL Percent Free Prostate Spec Ag 10 >25 % (calc) PSA(ng/mL) Free PSA(%) Estimated(x) Probability of Cancer(as%) 0-2.5 (*) Approx. 1 2.6-4.0(1) 0-27(2) 24(3) 4.1-10(4) 0-10 56 11-15 28 16-20 20 21-25 16 >or =26 8 >10(+) N/A >50 References:(1)Rafat a et al.:Urology 60: 469-474 (2002) (2)Saleem et al.:J.Urol 168: 922-925 (2001) Free PSA(%) Sensitivity(%) Specificity(%) < or = 25 85 19 < or = 30 93 9 (3)Catalona et al.:TRAE 277: 5146-7235 (1996) (4)Catalona et al.:TRAE 279: 2267-9441 (1997) (x)These estimates vary with age, ethnicity, [...] mind. PSA was performed using the [place] Immunoassay method. Values obtained from different assay methods cannot be used interchangeably. PSA levels, regardless of value, should not be interpreted as absolute evidence of the presence or absence of disease. THIS TEST WAS PERFORMED AT: [facility] [address] [place] [phone] RONY HOWE MD Free Prostate Spec Ag 0.6 Reason For Referral Reason KALINA Diagnosis 1 KALINA (obstructive sle ep apnea) (G47.33) Referral Organization Marcos Newman MD Referring Provider First Name Marcos Referring Provider Last Name Trent Referring Provider Speciality Internal edicine Referred Provider CHANTE TAVAREZ Referred Provider Specialty Sleep Medici ne General Notes Lea Gomez 02:43:32 PM EST > info faxed Jason Annette 07/04/2024 09:21:40 AM EST > referral info mailed to patient with letter, Lea Gomez 02/17/2025 03:14:20 PM > never was seen by them Referral Priority Routine Referral Appointment Date 11/12/2024 Reason lipoma of back Diagnosis 1 Lipoma of back (D17. 1) Referral Organization Marcos Newman MD Referring Provider First Name Marcos Referring Provider Last Name Trent Referring Provider Speciality Internal edicine Referred Provider Scotty Ragland Referred Provider Specialty Surgery General Notes Lea [...] Referring Provider Speciality Internal edicine Referred Provider Gavin Fischer Referred Provider Specialty Urology General Notes Lea Gomez 0 08/22/2024 01:16:10 PM >info faxedJason Annette 09/04/2024 11:17:27 AM > per office referral refaxedJason Annette 09/12/2024 01:48:37 PM >spoke with office, patient felt he didn't need to be seen due to his infection has cleared, and wants to discuss this with his PCP. Patient has an appt on 09-18-2024, Lea Gomez 09/15/2024 07:18:01 AM >put a note on his office visit regarding above issue for provider Referral Priority Routine Reason needs sleep study Diagnosis 1 KALINA (obstructive sle ep apnea) (G47.33) Referral Organization Marcos Newman MD Referring Provider First Name Marcos Referring Provider Last Name Trent Referring Provider Speciality Internal M edicine Referred Provider Emilia Alexander Referred Provider Specialty Neurology General Notes Lea Gomez 0 03/12/2025 07:57:47 AM >referral info faJason lemus Annette 03/20/2025 11:17:46 AM >was told patient is aware of appt Referral Priority Routine Referral Appointment Date 03/25/2025 Medications Medication SIG (Take, Route, Frequency, Duration) [...] a day for 10 days 11/12/2014 Not-Taking Immunizations Vaccine Route Administration Date Status Comme nts Flu Vaccine Unknown 05/12/2012 Administered Flu Vaccine Unknown 04/28/2014 Administered Dayana Flu Vaccine Unknown 04/22/2015 Administered [employer] Flu Vaccine Unknown 04/22/2016 Administered Given at rk. Fluarix Quadrivalent Unknown 04/28/2017 Administered At [...] Problem Status W/U Status Risk Notes Problem 698926827 Tubular adenoma (D36.9) Active confirmed Problem 377450142 Body mass index (BMI) 35.0-35.9, adult (Z68.35) Active confirmed Problem 78707245 Essential hypertension (I10) Active confirmed Problem 783747061 Low HDL (under 40) (E78.6) Active confirmed Problem 948686584 Non morbid obesity due to excess calories (E66.09) Active confirmed Problem 75102842 KALINA (obstructive sleep apnea) (G47.33) Active confirmed Problem Obese class II (5502046923435 05) BMI 39.0-39.9,adult (Z68.39) Active confirmed Problem 109293014 BMI 36.0-36.9,adult (Z68.36) Active confirmed Problem 627732556 Acute constipation (K59.00) Active confirmed Vital Signs Blood pressure diastolic 88 mm Hg 03/12/2025 timur ght is down 4 pounds since 12-04-24 Height 67.5 in 03/12/2025 weight is down 4 pounds since 12-04-24 Blood pressure systolic 122 mm Hg 03/12/2025 weig ht is down 4 pounds since 12-04-24 Weight 258 lbs 03/12/2025 weight is down 4 pounds since 12-04-24 BMI 39.81 kg/m2 03/12/2025 weight is down 4 pounds since 12-04-24 Encounters Encounter Location Date Provider Diagnosis Marcos Newman MD [address] [place] [address] [address] [place], [place] [id number] 08/28/2024 Marcos Newman Acute constipation K59.00 Marcos Newman MD [address] [place] [id number] 09/11/2024 Marcos Newman Blood tests for routine general physical examination Z00.00 ; Essential hypertension I10 and Low HDL (under 40) E78.6 Marcos Newman MD [address] [place] [id number] 10/09/2024 Marcos Newman Rising PSA level R97.20 and Elevated PSA R97.20 Marcos Newman MD [address] [place] [id number] 11/06/2024 Marcos Newman Elevated PSA R97.20 Marcos Newman MD [address] [place] [id number] 12/30/2024 Marcos Newman Elevated PSA R97.20 Marcos Newman MD [address] [place] [id number] 06/05/2024 Marcos Newman Other specified coug h R05.8 ; Adverse effect of angiotensin-convertin g-enzyme inhibitors, initial encounter T46.4X5A ; Essential hypertension I10 ; KALINA (obstructive sleep apnea) G47.33 and 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 Marcos Newman MD [address] [place] [id number] 08/07/2024 Marcos Newman Acute constipation K59.00 and Acute UTI N39.0 Marcos Newman MD [address] [place] [id number] 09/18/2024 Marcos Newman Prediabetes R73.09 ; Annual physical exam Z00.00 ; Elevated PSA R97.20 ; Essential hypertension I10 ; Low HDL (under 40) E78.6 ; Colon cancer screening Z12.11 and Depression screening Z13.31 Marcos Newman MD [address] [place] [id number] 10/16/2024 Marcos Newman Elevated PSA R97.20 and Hematuria R31.9 Marcos Newman MD [address] [place] [id number] 12/04/2024 Marcos Newman Elevated PSA R97.20 and Essential hypertension I10 Marcos Newman MD [address] [place] [id number] 03/12/2025 Marcos Newman Elevated PSA R97.20 ; BMI 39.0-39.9,adult Z68.39 and KALINA (obstructive sleep apnea) G47.33 Marcos Newman MD [address] [place] [address] [address] [place], [place] [id number] 08/12/2024 Marcos Newman Assessments Encounter Date Diagnosis (ICD Code) Assessment Notes Treatment Notes Treatment Clinical Notes Section Notes 08/28/2024 Acute constipation (ICD-10 - K59.00) 09/11/2024 Blood tests for routine general physical examination (ICD-10 - Z00.00) 10/09/2024 Rising PSA level (ICD-10 - R97.20) 10/09/2024 Elevated PSA (ICD-10 - R97.20) 11/06/2024 Elevated PSA (ICD-10 - R97.20) 12/30/2024 Elevated PSA (ICD-10 - R97.20) 06/05/2024 Other [...] still with hematuria will send to urology 12/04/2024 Elevated PSA (ICD-10 - R97.20) discussed findings of recent PSA and need to contiue to monitor, labs ordered 03/12/2025 Elevated PSA (ICD-10 - R97.20) has decreased from when he had the prostate infection. will recheck 03/12/2025 BMI 39.0-39.9,adult (ICD-10 - Z68.39) discussed diet 09/11/2024 Essential hypertension (ICD-10 - I10) 06/05/2024 Essential hypertension (ICD-10 - I10) had not been taking meds for 4 days, patient verbalized understanding of new medication and directions for use 09/18/2024 Elevated PSA (ICD-10 - R97.20) had just had a severe uti and hopefully related to that, will continue to monitor 12/04/2024 Essential hypertension (ICD-10 - I10) had been on vacation and ran out of meds, will continue current regiment 03/12/2025 KALINA (obstructive sleep apnea) (ICD-10 - G47.33) needs referral to [facility] [place] 09/11/2024 Low HDL (under 40) (ICD-10 - E78.6) 06/05/2024 KALINA (obstructive sleep apnea) (ICD-10 - G47.33) referral to sleep medicine 09/18/2024 Essential hypertension (ICD-10 - I10) stable, will continue current regiment 06/05/2024 Lipoma of back (ICD-10 - D17.1) referral to dr ragland 09/18/2024 Low HDL (under 40) (ICD-10 - E78.6) stable, will continue current regiment 09/18/2024 Colon cancer screening (ICD-10 - Z12.11) guaiac negative 09/18/2024 Depression screening (ICD-10 - Z13.31) negative screen Plan Of Treatment Pending Test Test Name Order Date Electrocardiogram (EKG) 02/26/2017 Electrocardiogram (EKG) 08/21/2019 Occult Blood, Stool, Guaiac 09/18/2024 Next Appt Details Provider Name:Marcos bella, 06/12/2025 08:00:00 AM, [address] [facility], [address], [place], [place], [id number], Provider Name:Marcos bella, 06/15/2025 08:45:00 AM, [address] [facility], [address], [place], [place], [id number], Provider Name:Marcos Garcia Lopez ier, 09/17/2025 07:00:00 AM, [address] [facility], [address], [place], [place], [phone], Provider Name:Marcos Marroquin ier, 09/24/2025 08:00:00 AM, [address] [facility], [address], [place], [place], [id number], Insurance Providers Payer Name Payer Address Payer Phone Subscriber Number Group Number Insured Name Patient Relationship to Insured Coverage Start Date Coverage End Date [employer] [facility] [address] [place], [place] [phone] [id number] Beka Bernabe Self - patient is the insured Medical (General) History Medical History History ICD Code Colonoscopy 08/30/16 w/Dr. Lyman ss - repeat 5 years Tubular adenoma colonoscopy 03/13. due in 5 years
--- OUTSIDE RECORDS SUMMARY | 2025-03-25 15:17 | XMS_ITS | Patient Health Record ---
Author [facility] Address [address] [facility] [place] [address] Care Team Providers Care Chemistry Instructor Name Role Phone Trent GIPSON, Marcos Primary Care Provider Xin Cruz Unavailable [phone] Reason For Referral No Information Medications Medication SIG (Take, Route, Fr equency, Duration) Notes Start Date End Date Status Indomethacin 50 MG 1 capsule with food Orally Twice a day; Duration: 10 days 04/24/2012 Active Lisinopril 10 MG 1 tablet Orally Once a day; Duration: 30 day(s) Active Problems Problem Type SNOMED Code ICD Code Onset Dates Problem Status W/U Status Risk Notes Problem Cellulitis and abscess of toe (355171988) Celluitis - Toes (681.10) Active confirmed Problem Pain in limb (29136429) Pain in Limb (729.5) Active confirmed Problem Paronychia (04086360) Paronychia (681.11) Active confirmed Plan Of Treatment Pending Test Test Name Order Date 19874- Debride <25 sq cm 05/08/2012 67377 I&D ABSCESS- SIMPLE,SINGLE 012 Insurance Providers Payer Name Payer Address Payer Phone Subscriber Number Group Number Insured Name Patient Relationship to Insured Coverage Start Date Coverage End Date [employer] [address] [place] [address] [phone] [id number] Beka Bernabe Self - patient is the insured Medical (General) History Medical History History ICD Code high blood pressure chicken pox Surgical History Surgery Date(Month/Year) hernia x2
--- OUTSIDE RECORDS SUMMARY | 2025-03-25 15:17 | XMS_ITS ---
Author Name [facility] Organization Unknown Care Team Organization Name Specialty Phone Email Start Date End [facility] te Office of the State Comptrol [facility]er ([employer]C) 06/06/2024 03/22/2025
--- OUTSIDE RECORDS SUMMARY | 2025-03-25 15:17 | XMS_ITS | Patient Health Record ---
Author Organization [facility] Address [address] [place] [address] Care Team Providers Care Upholstery Repairer Name Role Phone Marcos Newman MD Primary Care Provider Herman Contreras Unavailable [phone] Allergies No Known Allergies Reason For Referral No Information Medications Medication SIG (Take, Route, Fr equency, Duration) Notes Start Date End Date Status Multivitamin Active Lisinopril 10 MG Orally Act carlitos Immunizations Vaccine Route Administration Date Status Comme nts Influenza Unknown 04/24/2021 Administered Problems Problem Type SNOMED Code ICD Code Onset Dates Problem Status W/U Status Risk Notes Problem 974133522 Encounter for screening for malignant neoplasm of colon (Z12.11) Active confirmed Problem History of adenomatous polyp of colon (509964805) History of adenomatous polyp of colon (Z86.010) Active confirmed Problem Pre-procedure evaluation check (142216252) Encounter for other preprocedural examination (Z01.818) Active confirmed Problem Screening for malignant neoplasm of rectum (142885210) Encounter for screening for malignant neoplasm of rectum (Z12.12) Active confirmed Problem 54393834 Preprocedural examination (Z01.818) Active confirmed Problem History of polyp of colon (situation) (624101227) History of colon polyps (Z86.010) Active confirmed Problem Diverticulosis of colon (500773417) Diverticulosis of colon (K57.30) Active confirmed Plan Of Treatment Future Test Test Name Order Date COLONOSCOPY 06/08/2016 COLONOSCOPY 01/11/2022 Insurance Providers Payer Name Payer Address Payer Phone Subscriber Number Group Number Insured Name Patient Relationship to Insured Coverage Start Date Coverage End Date [facility] [address] [place], [place] [id number] BRIANNA NAYAK Self - patient is the insured Medical (General) History Medical History History ICD Code Hypertension Denies [place],DM,CVA,Lung disease,renal dise ase COVID positive x 2 in 07/2019 and 11/2021 Colonoscopy 08/2016 1.5cm tubular adenoma removed Surgical History Surgery Date(Month/Year) Umbilical hernia repair x 2
== END 2025-03-25 13:34 | disposition home or self-care (01) ==
LOC: HO.HSMC 12:55
PROVIDERS: PCP Internal Medicine; Visit Provider Physician Assistant Medical
DX: G47.19 Other hypersomnia (principal); R53.82 Chronic fatigue, unspecified
CPT/HCPCS: 99204

== ENCOUNTER 2025-06-12 10:03 | Outpatient (REF) | payer BC, SELFPAY ==
--- OUTSIDE RECORDS SUMMARY | 2024-09-11 02:00 | XMS_ITS ---
Author Organization Marcos Newman MD Address [address] [place] [id number] Care Team Providers Care Badger Distiller Operator Name Role Phone Marcos Newman Primary Care Provider Results Component Value Reference Range Notes Complete Blood Count Auto Di ff Reviewed date:09/12/2024 04:29:43 PM Interpretation: Performing Lab:[facility], [address] [place] [address] [place] [address] Notes/Report: White Blood Count 8.0 4.8-10.8 X10*3/uL Red Blood Count 5.52 4.60-5.80 X10*6/uL Hemoglobin 15.5 14.0-18.0 g/dl Hematocrit 46.3 42.0-52.0 % Mean Corpuscular Volume 83.9 80.0-98.0 fL Mean Corpuscular Hemoglobin 28.1 27.0-33.0 pg Mean Corpuscular HGB Conc 33.5 31.0-36.0 g/dl Red Cell Distribution Width 12.7 11.0-16.0 % Platelet Count 244 160-400 X10*3/uL Mean Platelet Volume 9.0 9.4-12.4 fL Neutrophils Percent Auto 59.2 45-73 % Imm Gran Pct Auto 0.4 0.0-0.4 % Lymphocytes Percent Auto 24.2 20-40 % Monocytes Percent Auto 11.2 2-11 % Eosinophils Percent Auto 4.6 0-4 % Basophils Percent Auto 0.4 0-2 % NRBC Pct Auto 0.0 0.0-0.2 /100WBC Neutrophils Absolute Auto 4.8 2.0-8.3 x10*3/u L Imm Gran Abs Auto 0.03 0.00-0.03 X10*3/uL Lymphocytes Absolute Auto 1.9 1.2-4.9 X10*3/u L Monocytes Absolute Auto 0.9 0.1-1.2 X10*3/uL Eosinophils Absolute Auto 0.4 0.0-0.4 X10*3/u L Basophils Absolute Auto 0.0 0.0-0.2 X10*3/uL NRBC Abs Auto 0.000 0.0-0.012 X10*3/uL Comprehensive [place]. Panel Fa st Reviewed date:09/12/2024 04:37:04 PM Interpretation: Performing Lab:[facility], [address] [place] [phone] Notes/Report: Sodium 141 135-145 mmol/L Potassium 4.1 3.3-5.1 mmol/L Chloride 106 96-108 mmol/L Carbon Dioxide 29 22-29 mmol/L Anion Gap 10 12-20 Blood Urea Nitrogen 21 9-16 mg/dL Creatinine 1.12 0.5-1.4 mg/dL Estimated Glomerular Filt Rate > 60 Chronic Kidney Disease: Estimated GFR < 60 mL/min/1.73m2 Severe Kidney Disease: Estimated GFR < 15 mL/min/1.73m2 Glucose Fasting 116 60-99 mg/dL A fasting glucose from 100-125 mg/dl is considered impaired (pre-diabetes). Calcium 9.0 8.4-10.2 mg/dL Bilirubin Total 0.5 0.0-1.0 mg/dL Aspartate Amino Transferase 30 5-37 U/L Alanine Aminotransferase 32 0-40 U/L Total Protein 6.9 6.5-8.0 g/dL Albumin Level 3.8 3.5-5.0 g/dL Alkaline Phosphatase 53 39-117 U/L Lipid Panel Reviewed date:09/11/2024 12:46:50 PM Interpretation: Performing Lab:[facility], [address] [place] [phone] Notes/Report: Triglycerides 157 <150 mg/dL Desirable Triglyceride: less than 150 mg/dL Borderline High Triglyceride 150-199 mg/dL High Triglyceride: 200-499 mg/dL Very High Triglyceride: greater than or equal to 5OO mg/dL Cholesterol 171 <200 mg/dL Desirable Cholesterol: less than 200 mg/dL Borderline High Cholesterol: 200-239 mg/dL High Cholesterol: greater than 239 mg/dL LDL Cholesterol Calculated 107 <100 mg/dL Desirable LDL: less than 100 mg/dL Near Optimal/Above Optimal LDL: 110-129 mg/dL Borderline High LDL: 130-159 mg/dL High LDL: 160-189 mg/dL Very High LDL: greater than or equal to 190 mg/dL HDL Cholesterol 33 >40 mg/dL Desirable HDL: greater than 40 mg/dL Note: This HDL assay may give artificially low results in patients with liver disease. PSA,Total (Free>4and<10) Reviewed date:09/18/2024 09:28:51 AM Interpretation:JAUN PSA09/18/24 Performing Lab:[address] [phone] Notes/Report: PSA,Total (Free>4and<10) 6.76 0.00-4.00 ng/mL PSA methodology: Hawkins Alinity i Chemiluminescent Microparticle Immunoassay (CMIA) UA ClnCatch+Micro w/rflx Cul t Reviewed date:09/12/2024 04:30:59 PM Interpretation: Performing Lab:[address] [phone] Notes/Report: Urine, Clean Catch Color Urine Yellow Appearance Urine Clear PH 5.5 5.0-9.0 Glucose Urine UA Negative Negative mg/dL Urine Blood Negative Negative Specific [place] - Urine 1.025 1.005-1.025 Urine Protein Negative Neg-Trace mg/dL Urine Ketones Negative Negative mg/dL Nitrite Urine Negative Negative Leukocyte Esterase Urine Negative Negative RBC Urine 0-2 0-2 /HPF WBC Urine 0-5 0-5 /HPF Squamous Epithelial Cell Urine 0-2 0-2 /HPF Bacteria Urine None Seen None Seen Hyaline Casts Urine 0-2 0-2 /LPF REASON FOR VISIT yearly fasting labs, Didn't go to his Urology appt. Encounters Encounter Location Date Provider Diagnosis Marcos Newman MD [address] [place], [place] [phone] 09/11/2024 Marcos Newman Blood tests for routine general physical examination Z00.00 ; Essential hypertension I10 and Low HDL (under 40) E78.6 Assessments Encounter Date Diagnosis (ICD Code) Assessment Notes Treatment Notes Treatment Clinical Notes Section Notes 09/11/2024 Blood tests for routine general physical examination (ICD-10 - Z00.00) 09/11/2024 Essential hypertension (ICD-10 - I10) 09/11/2024 Low HDL (under 40) (ICD-10 - E78.6) Plan Of Treatment Next Appt Details Provider Name:Marcos Marroquin ier, 06/16/2025 11:00:00 AM, [address] [place] [address] Drive, Suite [facility], [place], [place], [phone], Provider Name:Marcos Marroquin ier, 09/17/2025 07:00:00 AM, [address] [place] [address], Suite [facility], [place], [place], [phone], Provider Name:Marcos Marroquin ier, 09/24/2025 08:00:00 AM, [address] [place] [address], Suite [facility], [place], [place], [phone], Progress Notes * Beka BERNABE TDOB: [birth year] (60 yo M)Acc No.[id number]:09/11/2024 Progress Note Patient: Beka ELLIS Provider: Jono Newman MD :1965 A ge:59 Y S ex:Male Date:09/11/2024 Address:[address] [place], [place] [id number] Subjective: * Chief Complaints: * 1 . Yearly fasting labs. 2. Didn't go to his Urology appt.. * Medical History: Objective: * Vitals: Assessment: * Assessment: 1. B lood tests for routine general physical examination - Z00.00 (Primary) 2 .?Essential hypertension - I10 3 . L ow HDL (under 40) - E78.6 ? Plan: * Treatment: 2. E ssential hypertension L AB: Complete Blood Count Auto Diff (Collection Date & Time - 09/11/2024 07:00 AM) L AB: Comprehensive [place]. Panel Fast (Collection Date & Time - 09/11/2024 07:00 AM) L AB: Lipid Panel (Collection Date & Time - 09/11/2024 07:00 AM) L AB: PSA,Total (Free>4and<10) (Collection Date & Time - 09/11/2024 07:00 AM) L AB: UA ClnCatch+Micro w/rflx Cult (Collection Date & Time - 09/11/2024 07:00 AM) 3. L ow HDL (under 40) L AB: Complete Blood Count Auto Diff (Collection Date & Time - 09/11/2024 07:00 AM) L AB: Comprehensive [place]. Panel Fast (Collection Date & Time - 09/11/2024 07:00 AM) L AB: Lipid Panel (Collection Date & Time - 09/11/2024 07:00 AM) L AB: PSA,Total (Free>4and<10) (Collection Date & Time - 09/11/2024 07:00 AM) L AB: UA ClnCatch+Micro w/rflx Cult (Collection Date & Time - 09/11/2024 07:00 AM) * Procedure Codes: 3 6415 VENIPUNCT, ROUTINE* * * The named appointment provid er may or may not be the originator of this progress note, and it is not deemed complete until electronically signed by the appointment provider. Sign off status: Pending * Provider: Jono Newman MD Date: 0 09/11/2024 Generated for Carter taylor/Elaine/Prabhakaritting on: 1 08/12/2024 10:38 AM EST
--- OUTSIDE RECORDS SUMMARY | 2024-09-18 03:00 | XMS_ITS ---
Author Organization Marcos Newman MD Address [address] [place] [id number] Care Team Providers Care Waste Paper Hammermill Operator Name Role Phone Marcos Newman Primary Care Provider [phone] Allergies No Known Allergies Results Component Value Reference Range Notes Occult Blood, Stool, Guaiac (Not yet reviewed by provider) Interpretation:Negative Performing Lab: Notes/Report: Negative Occult Blood, Stool, Guaiac Neg REASON FOR VISIT annual visit, CBACK PSA Medications Medication SIG (Take, Route, Frequency, Duration) Notes Start Date End Date Status Valsartan 160 MG 1 tablet Orally Once a day 06/05/2024 Active Nitrofurantoin Macrocrystal 100 MG 1 capsule at bedtime with food or milk Orally Once a day for 10 day(s) Not-Taking Indomethacin 50 MG 1 capsule with food Orally Three times a day for 10 days 11/12/2014 Not-Taking Pyridium 100 MG 1 tablet after meals Orally Three times a day for 3 days 08/07/2024 Not-Taking Social History Tobacco Use: Social History Observation [...] ast year? No Points 0 Interpretation Negative Vital Signs Blood pressure systolic 128 mm Hg 09/18/19 25 Blood pressure diastolic 86 mm Hg 025 Height 67.5 in 09/18/2024 Weight 265 lbs 09/18/2024 BMI 40.89 kg/m2 09/18/2024 weight is up 5 pounds since 08-07-24 Encounters Encounter Location Date Provider Diagnosis Marcos Newman MD [address] [place], [place] [id number] 09/18/2024 Marcos Newman Prediabetes R73.09 ; Annual physical exam Z00.00 ; Elevated PSA R97.20 ; Essential hypertension I10 ; Low HDL (under 40) E78.6 ; Colon cancer screening Z12.11 and Depression screening Z13.31 Assessments Encounter Date Diagnosis (ICD Code) Assessment Notes Treatment Notes Treatment Clinical Notes Section Notes 09/18/2024 Prediabetes (ICD-10 - R73.09) talked to him aboiut diabetes and need for diet, no need for medication at this time, will continue to monitor 09/18/2024 Annual physical exam (ICD-10 - Z00.00) labs reviewed and discussed with patient 09/18/2024 Elevated PSA (ICD-10 - R97.20) had just had a severe uti and hopefully related to that, will continue to monitor 09/18/2024 Essential hypertension (ICD-10 - I10) stable, will continue current regiment 09/18/2024 Low HDL (under 40) (ICD-10 - E78.6) stable, will continue current regiment 09/18/2024 Colon cancer screening (ICD-10 - Z12.11) guaiac negative 09/18/2024 Depression screening (ICD-10 - Z13.31) negative screen Plan Of Treatment Medication Medication Name Sig Start Date Stop Date Notes Valsartan 160 MG 1 tablet Orally Once a day 06/05/2024 Treatment Notes Assessment Notes Prediabetes talked to him aboiut diabetes and need for diet, no need for medication at this time, will continue to monitor Annual physical exam labs reviewed and d iscussed with patient Elevated PSA had just had a sever e uti and hopefully related to that, will continue to monitor Essential hypertension stable, will cont inue current regiment Low HDL (under 40) stable, will continu e current regiment Colon cancer screening guaiac negative Depression screening negative screen Pending Test Test Name Order Date Occult Blood, Stool, Guaiac 09/18/2024 Next Appt Details Follow Up: 3 Weeks, Reason: Provider Name:Marcos bella, 06/16/2025 11:00:00 AM, [address], [address], [place], [place], [phone], Provider Name:Marcos Marroquin saer, 09/17/2025 07:00:00 AM, [address], [address], [place], [phone], Provider Name:Marcos Marroquin saer, 09/24/2025 08:00:00 AM, [address], [address], [place], [phone], Progress Notes * Beka BERNABE TDOB: [birth year] (59 yo M)Acc No.[id number]:09/18/2024 Progress Notes Patient: Beka ELLIS Provider: Jono Newman MD :1965 A ge:59 Y S ex:Male Date:09/18/2024 Address:[address] [place] [address] , [id number] Subjective: * Chief Complaints: * A nnual visitCBACK PSA * HPI: D epression Screening: PHQ-9 L ittle interest or pleasure in doing things N ot at all, F eeling down, depressed, or hopeless N ot at all, T rouble falling or staying asleep, or sleeping too much N ot at all, F eeling tired or having little energy N ot at all, P oor appetite or overeating N ot at all, F eeling bad about yourself or that you are a failure, or have let yourself or your family down N ot at all, T rouble concentrating on things, such as reading the newspaper or watching television N ot at all, M oving or speaking so slowly that other people could have noticed; or the opposite, being so fidgety or restless that you have been moving around a lot more than usual N ot at all, T houghts that you would be better off or of hurting yourself in some way N ot at all, T otal Score 0 . C ommunication Needs: Communication Needs D oes the patient have a hearing impairment N o, D oes the patient have a vision impairment? Y es, I f yes, what is the vision impairment? G lasses, D oes the patient have a cognition impairment? N o. S ORI Questions: SDOH Questions I n the past year have you been worried about losing housing? N o, I n the past year have you or any family members you live with been unable to get any of the following when it was really needed? Check all that apply: F ood. S ymptom(s): patient is a 59 yo male ehere for annual visit with review of recent labs and follow up if chronic issues. * ROS: G eneral/Constitutional: Patient denies f atigue, headache. C hange in appetite?denies. C hills d enies. F ever d enies. O phthalmologic: Blurred vision d enies. D ischarge d enies. P ain d enies. E NT: Patient denies d ecreased sense of smell, any loss of taste, sore throat. D ecreased hearing d enies. S ore throat d enies. S wollen glands?denies. E ndocrine: Cold intolerance d enies. E xcessive thirst d enies. H eat intolerance d enies. W eight loss d enies. R espiratory: Cough d enies. S hortness of breath at rest d enies. S hortness of breath with exertion d enies. W heezing d enies. C ardiovascular: Chest pain at rest d enies. C hest pain with exertion?denies. I rregular heartbeat d enies. S hortness of breath d enies. ? G astrointestinal: Abdominal pain d enies. C hange in bowel habits d enies. D iarrhea d enies. N ausea d enies. R ectal bleeding d enies. V omiting d enies . G enitourinary: Blood in urine d enies. D ifficulty urinating d enies. F requent urination d enies. M usculoskeletal: Patient denies m uscle aches. P ainful joints d enies. W eakness d enies. P eripheral Vascular: Patient denies r ed and blue toes. S kin: Dry skin d enies. I tching d enies. D enies?Mole(s), changes in moles, new moles or any lesions of concern. D enies P hotosensitivity. R hernandez d enies. N eurologic: Dizziness d enies. F ainting d enies. H eadache?denies. * Medical History: * Surgical History: * Hospitalization/Major Diagno stic Procedure: * Family History: F ather: alive 85 yrs, family history unknown . M other: alive 85 yrs. 1 sister(s) . 3 son(s) , 1 daughter(s) . . Mother-Healthy 1 sister -Cancer, No pertinent family medical history, Denies mental health/substance abuse family history, Denies mental health/substance abuse family history. * Social History: T obacco Use: T obacco Use/Smoking P atient is a n onsmoker, A dditional Findings: Tobacco Non-User C urrent non-smoker, currently using no form of tobacco. D rugs/Alcohol: A lcohol Screen D id you have a drink containing alcohol in the past year? N o, P oints 0 , I nterpretation N egative. M iscellaneous: C affeine: no. Children: yes. Community involvements: yes. Exercise: yes, 3-4 times per week ELLIPTICAL TREADMILL 40 MINUTES. Housing: owning. Living with: family. Marital status: . Occupation: works full-time. Pets: dog. Travel outside of the [place]: no. * Medications: T akingValsartan 160 MG Tablet 1 tablet Orally Once a day Taking Valsartan 160 MG Tablet 1 tablet Orally Once a day Not-Taking/PRNNitrofurantoin Macrocrystal 100 MG Capsule 1 capsule at bedtime with food or milk Orally Once a day Pyridium 100 MG Tablet 1 tablet after meals Orally Three times a day Indomethacin 50 MG Capsule 1 capsule with food Orally Three times a day Medication List reviewed and reconciled with the patientNot-Taking/PRN Nitrofurantoin Macrocrystal 100 MG Capsule 1 capsule at bedtime with food or milk Orally Once a day Not-Taking/PRN Pyridium 100 MG Tablet 1 tablet after meals Orally Three times a day Not-Taking/PRN Indomethacin 50 MG Capsule 1 capsule with food Orally Three times a day Medication List reviewed and reconciled with the patient * Allergies: N .K.D.A.yes[Allergies Verified] Objective: * Vitals: H t: 67.5, Wt: 265, BMI:40.89, BP:128/86, Wt-k.2. weight is up 5 pounds since 08-07-24. * P ast Orders: L ab:Urine Culture (Order Date - 08/28/2024) (Collection Date & Time - 08/28/2024 07:30 AM) Value Reference Range Urine Culture No growth. - L ab:Urinalysis (Order Date 08/28/2024) (Collection Date & Time - 08/28/2024 07:30 AM) Value Reference Range Color Urine Yellow - Appearance Urine Clear - PH 5.5 5.0-9.0 - Glucose Urine UA Negative Negative - mg/dL Urine Blood Negative Negative - Specific [place] - Urine 1.020 1.005-1.025 - Urine Protein Negative Neg-Trace - mg/dL Urine Ketones Negative Negative - mg/dL Nitrite Urine Negative Negative - Leukocyte Esterase Urine Negative Negative - L ab:UA ClnCatch+Micro w/rflx Cult (Order Date - 09/11/2024) (Collection Date & Time - 09/11/2024 07:00 AM) Value Reference Range Color Urine Yellow - Appearance Urine Clear - PH 5.5 5.0-9.0 - Glucose Urine UA Negative Negative - mg/dL Urine Blood Negative Negative - Specific [place] - Urine 1.025 1.005-1.025 - Urine Protein Negative Neg-Trace - mg/dL Urine Ketones Negative Negative - mg/dL Nitrite Urine Negative Negative - Leukocyte Esterase Urine Negative Negative - RBC Urine 0-2 0-2 - /HPF WBC Urine 0-5 0-5 - /HPF Squamous Epithelial Cell Urine 0-2 0-2 - /HP F Bacteria Urine None Seen None Seen - Hyaline Casts Urine 0-2 0-2 - /LPF L ab:Lipid Panel (Order Date 09/11/2024) (Collection Date & Time - 09/11/2024 07:00 AM) Value Reference Range Triglycerides 157 H <150 - mg/dL Cholesterol 171 <200 - mg/dL LDL Cholesterol Calculated 107 H <100 - mg/dL HDL Cholesterol 33 L >40 - mg/dL L ab:Comprehensive [place]. Panel Fast (Order Date 09/11/2024) (Collection Date & Time - 09/11/2024 07:00 AM) Value Reference Range Sodium 141 135-145 - mmol/L Bilirubin Total 0.5 0.0-1.0 - mg/dL Aspartate Amino Transferase 30 5-37 - U/L Alanine Aminotransferase 32 0-40 - U/L Total Protein 6.9 6.5-8.0 - g/dL Albumin Level 3.8 3.5-5.0 - g/dL Alkaline Phosphatase 53 39-117 - U/L Potassium 4.1 3.3-5.1 - mmol/L Chloride 106 96-108 - mmol/L Carbon Dioxide 29 22-29 - mmol/L Anion Gap 10 L 12-20 - Blood Urea Nitrogen 21 H 9-16 - mg/dL Creatinine 1.12 0.5-1.4 - mg/dL Estimated Glomerular Filt Rate > 60 - Glucose Fasting 116 H 60-99 - mg/dL Calcium 9.0 8.4-10.2 - mg/dL L ab:Complete Blood Count Auto Diff (Order Date - 09/11/2024) (Collection Date & Time - 09/11/2024 07:00 AM) Value Reference Range White Blood Count 8.0 4.8-10.8 - X10*3/uL Red Blood Count 5.52 4.60-5.80 - X10*6/uL Hemoglobin 15.5 14.0-18.0 - g/dl Hematocrit 46.3 42.0-52.0 - % Mean Corpuscular Volume 83.9 80.0-98.0 - fL Mean Corpuscular Hemoglobin 28.1 27.0-33.0 - pg Mean Corpuscular HGB Conc 33.5 31.0-36.0 - g/ dl Red Cell Distribution Width 12.7 11.0-16.0 - % Platelet Count 244 160-400 - X10*3/uL Mean Platelet Volume 9.0 L 9.4-12.4 - fL Neutrophils Percent Auto 59.2 45-73 - % Imm Gran Pct Auto 0.4 0.0-0.4 - % Lymphocytes Percent Auto 24.2 20-40 - % Monocytes Percent Auto 11.2 H 2-11 - % Eosinophils Percent Auto 4.6 H 0-4 - % Basophils Percent Auto 0.4 0-2 - % NRBC Pct Auto 0.0 0.0-0.2 - /100WBC Neutrophils Absolute Auto 4.8 2.0-8.3 - x10* 3/uL Imm Gran Abs Auto 0.03 0.00-0.03 - X10*3/uL Lymphocytes Absolute Auto 1.9 1.2-4.9 - X10* 3/uL Monocytes Absolute Auto 0.9 0.1-1.2 - X10*3/ uL Eosinophils Absolute Auto 0.4 0.0-0.4 - X10* 3/uL Basophils Absolute Auto 0.0 0.0-0.2 - X10*3/ uL NRBC Abs Auto 0.000 0.0-0.012 - X10*3/uL L ab:PSA Free and Total (Order Date - 09/11/2024) (Collection Date & Time - 09/11/2024 11:36 AM) Value Reference Range Prostate Specific Ag Total 6.3 A < OR = 4.0 - ng/mL Percent Free Prostate Spec Ag 10 A >25 - % (c alc) Free Prostate Spec Ag 0.6 - ng/mL * Examination: G eneral Examination: GENERAL APPEARANCE: w ell developed, well nourished, in no acute distress. HEAD: n ormocephalic, atraumatic. EYES: p upils equal, round, reactive to light and accommodation, sclera non-icteric. EARS: n ormal. ORAL CAVITY: m ucosa moist. THROAT: c lear. NECK/THYROID: n keshav supple, full range of motion, no cervical lymphadenopathy, no bruits. SKIN: w arm and dry, no suspicious lesions. HEART: r egular rate and rhythm, S1, S2 normal, no murmurs.? LUNGS: c lear to auscultation bilaterally. ABDOMEN: s oft, nontender, nondistended, bowel sounds present, normal, no organomegaly , no masses palpable. RECTAL EXAM: n ormal tone, no external hemorrhoids, no masses palpable, prostate normal, stool guaiac negative. MALE GENITOURINARY: n ot examined. EXTREMITIES: n o clubbing, cyanosis, or edema. NEUROLOGIC: n onfocal, motor strength normal upper and lower extremities, sensory exam intact. Assessment: * Assessment: 1. A nnual physical exam - Z00.00 (Primary) 2 . P rediabetes - R73.09 ? 3 . E levated PSA - R97.20 4 . E ssential hypertension - I10 5 . L ow HDL (under 40) - E78.6 6 . C olon cancer screening - Z12.11 7 . D epression screening - Z13.31 Plan: * Treatment: 2. P rediabetes Notes: talked to him aboiut diabetes and need for diet, no need for medication at this time, will continue to monitor 3. E levated PSA L AB: PSA Free and Total (Ordered for 10/09/2024) Notes: had just had a severe uti and hopefully related to that, will continue to monitor 4. E ssential hypertension Continue Valsartan Tablet, 160 MG, 1 tablet, Orally, Once a day. Notes: stable, will continue current regiment 5. L ow HDL (under 40) Notes: stable, will continue current regiment 6. C olon cancer screening L AB: Occult Blood, Stool, Guaiac (Collection Date & Time - 09/18/2024) N egative Value Reference Range O ccult Blood, Stool, Guaiac Neg Notes: guaiac negative??7.?Depression screening? Notes: negative screen?? * Procedure Codes: 8 2270 TEST FOR BLOOD, FECES * Follow Up: 3 Weeks * * Sign off status: Completed true * Provider: Jono Newman MD Date: 0 09/18/2024 Generated for Carter taylor/Elaine/eTransmitting on: 1 08/12/2024 10:39 AM EST History and Physical Notes * HPI (History of Present Illness) Category Sub-Category Detail Notes Category Not es Symptom(s) patient is a 59 yo male ehere for annual visit with review of recent labs and follow up if chronic issues. Depression Screening PHQ-9 Little inte rest or [...] way: Not at all Total Score: 0 SDOH Questions SDOH Questions In the past year have you been worried about losing housing?: No In the past year have you or any family members you live with been unable to get any of the following when it was really needed? Check all that apply:: Food Communication Needs Communication Needs Does the patient have a hearing impairment: No Does the patient have a vision impairmen t?: Yes If yes, what is the vision impairment?: Glasses Does the patient have a cognition impair ment?: No Examination Category Sub-Category Detail Notes Category Not es General Examination GENERAL APPEARANCE: well dev eloped, well nourished, in no acute distress HEAD: normocephalic, atrau matic EYES: pupils equal, round, reactive to light and accommodation, sclera non-icteric EARS: normal THROAT: clear NECK/THYROID: neck supple, [...] SKIN: warm and dry, no leena picious lesions EXTREMITIES: no clubbing, cyanosi s, or edema MALE GENITOURINARY: not examined RECTAL EXAM: normal tone, no exte rnal hemorrhoids, no masses palpable, prostate normal, stool guaiac negative ORAL CAVITY: mucosa moist
--- OUTSIDE RECORDS SUMMARY | 2024-10-09 02:00 | XMS_ITS ---
Author Organization Marcos Newmna MD Address [address] [place] [id number] Care Team Providers Care Room Worker Name Role Phone Marcos Newman Primary Care Provider [phone] Results Component Value Reference Range Notes PSA Free and Total Reviewed date:10/16/2024 09:14:12 AM Interpretation:cback 10/16 psa Performing Lab:[facility], [address] [place] [address] [place] [address] Notes/Report: Prostate Specific Ag Total 4.8 < OR = 4.0 ng/ mL Percent Free Prostate Spec Ag 13 >25 % (calc ) PSA(ng/mL) Free PSA(%) Estimated(x) Probability of Cancer(as%) 0-2.5 (*) Approx. 1 2.6-4.0(1) 0-27(2) 24(3) 4.1-10(4) 0-10 56 11-15 28 16-20 20 21-25 16 >or =26 8 >10(+) N/A >50 References:(1)Saleem et al.:Urology 60: 469-474 (2002) (2)Saleem et al.:J.Urol 168: 922-925 (2001) Free PSA(%) Sensitivity(%) Specificity(%) < or = 25 85 19 < or = 30 93 9 (3)Saleem et al.:TRAE 277: 4592-6345 (1996) (4)Catalona et al.:TRAE 279: 7144-0334 (1997) (x)These estimates vary with age, ethnicity, family history and SYL results. (*)The diagnostic usefulness of % Free PSA has not been established in patients with total PSA below 2.6 ng/mL (+)In men with PSA above 10 ng/mL, prostate cancer risk is determined by total PSA alone. The Total PSA value from this assay system is standardized against the equimolar PSA standard. The test result will be approximately 20% higher when compared to the WHO-standardized Total PSA (Siemens assay). Comparison of serial PSA results should be interpreted with this fact in mind. PSA was performed using the Francis Jemma Immunoassay method. Values obtained from different assay methods cannot be used interchangeably. PSA levels, regardless of value, should not be interpreted as absolute evidence of the presence or absence of disease. THIS TEST WAS PERFORMED AT: [facility] [address] [place] [id number] RONY HOWE MD Free Prostate Spec Ag 0.6 REASON FOR VISIT PSA Encounters Encounter Location Date Provider Diagnosis Marcos Newman MD [address] [place] [phone] 10/09/2024 Marcos Newman Rising PSA level R97.20 and Elevated PSA R97.20 Assessments Encounter Date Diagnosis (ICD Code) Assessment Notes Treatment Notes Treatment Clinical Notes Section Notes 10/09/2024 Rising PSA level (ICD-10 - R97.20) 10/09/2024 Elevated PSA (ICD-10 - R97.20) Plan Of Treatment Next Appt Details Provider Name:Marcos bella, 06/16/2025 11:00:00 AM, [address] [place] [address], [phone], Provider Name:Marcos bella, 09/17/2025 07:00:00 AM, [address] [place] [address], [address], [phone], Provider Name:Marcos bella, 09/24/2025 08:00:00 AM, [address] [place] [address], [phone], Progress Notes * Beka BERNABE TDOB: [birth year] (60 yo M)Acc No.[id number]:10/09/2024 Progress Note Patient: Beka ELLIS Provider: Jono Newman MD :1965 A ge:59 Y S ex:Male Date:10/09/2024 Address:[address] [place] [address], [place], [id number] Subjective: * Chief Complaints: * 1 . PSA. * Medical History: Objective: * Vitals: Assessment: * Assessment: 1. R ising PSA level - R97.20 (Primary) 2 . E levated PSA - R97.20 ? Plan: * Treatment: * Procedure Codes: 3 6415 VENIPUNCT, ROUTINE* * * The named appointment provid er may or may not be the originator of this progress note, and it is not deemed complete until electronically signed by the appointment provider. Sign off status: Pending * Provider: Jono Newman MD Date: 0 10/09/2024 Generated for Carter taylor/Elaine/Prabhakaritting on: 1 08/12/2024 10:39 AM EST
--- OUTSIDE RECORDS SUMMARY | 2024-10-16 02:30 | XMS_ITS ---
Author Organization Marcos Newman MD Address [address] [place] [id number] Care Team Providers Care Retail Helper Name Role Phone Marcos Newman Primary Care Provider Allergies No Known Allergies Results Component Value Reference Range Notes Urinalysis and Microscopic Reviewed date:10/18/2024 09:31:32 AM Interpretation: Performing Lab:[facility], [address] [place] [phone] Notes/Report: Color Urine Yellow Appearance Urine Clear PH 5.0 5.0-9.0 Glucose Urine UA Negative Negative mg/dL Urine Blood Negative Negative Specific [place] - Urine 1.020 1.005-1.025 Urine Protein Negative Neg-Trace mg/dL Urine Ketones Negative Negative mg/dL Nitrite Urine Negative Negative Leukocyte Esterase Urine Negative Negative RBC Urine 0-2 0-2 /HPF WBC Urine 0-5 0-5 /HPF Squamous Epithelial Cell Urine 0-2 0-2 /HPF Bacteria Urine None Seen None Seen Hyaline Casts Urine 0-2 0-2 /LPF Urine Culture Reviewed date:10/18/2024 09:31:10 AM Interpretation: Performing Lab:[facility], [address] [place] [phone] Notes/Report: Urine Culture Report Result Urine Culture < 10,000 cfu/ml REASON FOR VISIT 3 WEEK F/U, CBACK PSA Medications Medication SIG (Take, Route, Frequency, Duration) Notes Start Date End Date Status Nitrofurantoin Macrocrystal 100 MG 1 capsule at bedtime with food or milk Orally Once a day for 10 day(s) Not-Taking Pyridium 100 MG 1 tablet after meals Orally Three times a day for 3 days 08/07/2024 Not-Taking Indomethacin 50 MG 1 capsule with food Orally Three times a day for 10 days 11/12/2014 Not-Taking Valsartan 160 MG 1 tablet Orally Once a day 06/05/2024 Active Vital Signs Blood pressure systolic 118 mm Hg 10/17/19 25 Blood pressure diastolic 82 mm Hg 025 Height 67.5 in 10/16/2024 Weight 265 lbs 10/16/2024 BMI 40.89 kg/m2 10/16/2024 Encounters Encounter Location Date Provider Diagnosis Marcos Newman MD [address] [place] [address] [place] [phone] 10/16/2024 Marcos Newman Elevated PSA R97.20 and Hematuria R31.9 Assessments Encounter Date Diagnosis (ICD Code) Assessment Notes Treatment Notes Treatment Clinical Notes Section Notes 10/16/2024 Elevated PSA (ICD-10 - R97.20) will repeat psa and if elevated send to urology 10/16/2024 Hematuria (ICD-10 - R31.9) if still with hematuria will send to urology Plan Of Treatment Treatment Notes Assessment Notes Elevated PSA will repeat psa and if elevated send to urology Hematuria if still with hematu osiel will send to urology Next Appt Details Follow Up: 4 Weeks, Reason: Provider Name:Marcos bella, 06/16/2025 11:00:00 AM, [address] [place] [address], [address], [phone], Provider Name:Marcos bella, 09/17/2025 07:00:00 AM, [address] [place] [address], [address], [phone], Provider Name:Marcos bella, 09/24/2025 08:00:00 AM, [address] [place] [address], [address], [phone], Progress Notes * Beka BERNABE TDOB: [birth year] (59 yo M)Acc No.[id number]:10/16/2024 Progress Notes Patient: Miguelito DE LUNABeka DIAZ Vasyl Provider: Jono Newman MD :1965 A ge:59 Y S ex:Male Date:10/16/2024 Address:[address] [place] [address] [id number] Subjective: * Chief Complaints: * 3 WEEK F/UCBACK PSA * HPI: S ymptom(s): patient is a 59 yo male her for 3 weekfollow up visit, had uti in july. had antibiotics. had symptoms in aug. * ROS: G eneral/Constitutional: Denies C hills. D enies F atigue. D enies F ever. D enies H eadache. E NT: Denies S ore throat. R espiratory: Denies C ough. D enies S hortness of breath at rest. D enies S hortness of breath with exertion. C ardiovascular: Denies C hest pain at rest. D enies C hest pain with exertion. D enies P alpitations. D enies S hortness of breath. G astrointestinal: Denies D iarrhea. D enies N ausea. * Medical History: * Surgical History: * Hospitalization/Major Diagno stic Procedure: * Medications: T akingValsartan 160 MG Tablet [...] Vitals: H t: 67.5, Wt: 265, BMI:40.89, BP:118/82, Wt-k.2. * Examination: G eneral Examination: GENERAL APPEARANCE: a lert, well hydrated, in no distress.? RECTAL EXAM: n o masses palpable, prostate normal non tender. Assessment: * Assessment: 1. E levated PSA - R97.20 (Primary) 2 . H ematuria - R31.9 Plan: * Treatment: 2. H ematuria Notes: if still with hematuria will send to urology * Procedure Codes: * Follow Up: 4 Weeks * * Sign off status: Completed true * Provider: Jono Newman MD Date: 0 10/16/2024 Generated for Carter taylor/Elaine/eTransmitting on: 1 08/12/2024 10:38 AM EST History and Physical Notes * HPI (History of Present Illness) Category Sub-Category Detail Notes Category Not es Symptom(s) patient is a 59 yo male her for 3 weekfollow up visit, had uti in july. had antibiotics. had symptoms in aug Examination Category Sub-Category Detail Notes Category Not es General Examination GENERAL APPEARANCE: alert, w ell hydrated, in no distress RECTAL EXAM: no masses palpable, prostate normal non tender
--- OUTSIDE RECORDS SUMMARY | 2024-11-06 02:45 | XMS_ITS ---
Author Organization Marcos Newman MD Address [address] [place], [place] [phone] Care Team Providers Care Rural Carrier Associate Name Role Phone Marcos Newman Primary Care Provider Results Component Value Reference Range Notes PSA,Total (Free>4and<10) Reviewed date:12/04/2024 08:54:57 AM Interpretation:12-04-2024 Performing Lab:[facility], [address] [place] [phone] Notes/Report: PSA,Total (Free>4and<10) 3.56 0.00-4.00 ng/mL A Free PSA was not [...] Hawkins Alinity i Chemiluminescent Microparticle Immunoassay (CMIA) REASON FOR VISIT PSA Encounters Encounter Location Date Provider Diagnosis Marcos Newman MD [address] [place] [phone] 11/06/2024 Marcos Newman Elevated PSA R97.20 Assessments Encounter Date Diagnosis (ICD Code) Assessment Notes Treatment Notes Treatment Clinical Notes Section Notes 11/06/2024 Elevated PSA (ICD-10 - R97.20) Plan Of Treatment Next Appt Details Provider Name:Marcos Marroquin ier, 06/16/2025 11:00:00 AM, [address], [address], [place], [place], [phone], Provider Name:Marcos Marroquin saer, 09/17/2025 07:00:00 AM, [address], [address], [place], [place], [phone], Provider Name:Marcos Marroquin ier, 09/24/2025 08:00:00 AM, [address], [address], [place], [phone], Progress Notes * Beka BERNABE TDOB: [birth year] (60 yo M)Acc No.[id number]:11/06/2024 Progress Note Patient: Beka ELLIS Provider: Jono Newman MD :1965 A ge:59 Y S ex:Male Date:11/06/2024 Address:[address] [place] [address] , [place] Subjective: * Chief Complaints: * 1 . PSA. * Medical History: Objective: * Vitals: Assessment: * Assessment: 1. E levated PSA - R97.20 (Primary) Plan: * Treatment: * Procedure Codes: 3 6415 VENIPUNCT, ROUTINE* * * The named appointment provid er may or may not be the originator of this progress note, and it is not deemed complete until electronically signed by the appointment provider. Sign off status: Pending * Provider: Jono Newman MD Date: 0 11/06/2024 Generated for Carter taylor/Elaine/eTransmitting on: 08/12/2024 10:39 AM EST
--- OUTSIDE RECORDS SUMMARY | 2024-12-04 04:15 | XMS_ITS ---
Author Organization Marcos Newman MD Address [address] [place] [id number] Care Team Providers Care Fundraising Manager Name Role Phone Marcos Newman Primary Care Provider Allergies No Known Allergies REASON FOR VISIT 4 WK F/U/ must see PSA Medications Medication SIG (Take, Route, Frequency, [...] a day for 10 days 11/12/2014 Not-Taking Vital Signs Blood pressure systolic 122 mm Hg 12/05/19 25 Blood pressure diastolic 90 mm Hg 025 Height 67.5 in 12/04/2024 Weight 262 lbs 12/04/2024 BMI 40.42 kg/m2 12/04/2024 weight is down 3 pounds [facility] 10-16-24 Encounters Encounter Location Date Provider Diagnosis Marcos Newman MD [address] [place], [place] [phone] 12/04/2024 Marcos Newman Elevated PSA R97.20 and Essential hypertension I10 Assessments Encounter Date Diagnosis (ICD Code) Assessment Notes Treatment Notes Treatment Clinical Notes Section Notes 12/04/2024 Elevated PSA (ICD-10 - R97.20) discussed findings of recent PSA and need to contiue to monitor, labs ordered 12/04/2024 Essential hypertension (ICD-10 - I10) had been on vacation and ran out of meds, will continue current regiment Plan Of Treatment Treatment Notes Assessment Notes Elevated PSA discussed findings o f recent PSA and need to contiue to monitor, labs ordered Essential hypertension had been on vacat ion and ran out of meds, will continue current regiment Next Appt Details Follow Up: 3 Months, Reason: Provider Name:Marcos Marroquin ier, 06/16/2025 11:00:00 AM, [facility], [address], [place], [place], [phone], Provider Name:Marcos Marroquin ier, 09/17/2025 07:00:00 AM, [address] [place] [address], [address], [place], [place], [phone], Provider Name:Marcos Radha Marroquin ier, 09/24/2025 08:00:00 AM, [address] [place] [address], [address], [place], [place], [phone], Progress Notes * Beka BERNABE TDOB: [birth year] (59 yo M)Acc No.[id number]:12/04/2024 Patient: Beka ELLIS Provider: Jono Newman MD :1965 A ge:59 Y S ex:Male Date:12/04/2024 Address:[address] [place] [address] [id number] Subjective: * Chief Complaints: * 4 WK F/U/ must see PSA * HPI: S ymptom(s): patient is a 59 yo male here for 4 week follow up visit and discussion of PSA. * ROS: G eneral/Constitutional: Denies C hills. D enies F atigue. D enies F ever. D enies H eadache. E NT: Denies S ore throat. R espiratory: Denies C ough. D enies S hortness of breath at rest. D enies S hortness of breath with exertion. C ardiovascular: Denies C hest pain at rest. D enies C hest pain with exertion. D enies D izziness. D enies P alpitations. D enies S [...] Objective: * Vitals: H t: 67.5, Wt: 262, BMI:40.42, BP:122/90, Repeat BP:120/95, Wt-k.84. weight is down 3 pounds since 10-16-24. * Examination: G eneral Examination: GENERAL APPEARANCE: a lert, well hydrated, in no distress.? HEAD: n ormocephalic. SKIN: g ood turgor. HEART: r egular rate and rhythm, no murmurs, rubs, gallops.? LUNGS: n o wheezes, rales, rhonchi, good air movement, clear to auscultation bilaterally. Assessment: * Assessment: 1. E levated PSA - R97.20 (Primary) 2 . E ssential hypertension - I10 ? Plan: * Treatment: 2. E ssential hypertension Notes: had been on vacation and ran out of meds, will continue current regiment * Procedure Codes: * Follow Up: 3 Months * * Sign off status: Completed true * Provider: Jono Newman MD Date: 0 12/04/2024 Generated for Carter taylor/Elaine/Christinasmitting on: 1 08/12/2024 10:40 AM EST History and Physical Notes * HPI (History of Present Illness) Category Sub-Category Detail Notes Category Not es Symptom(s) patient is a 59 yo male here for 4 week follow up visit and discussion of PSA Examination Category Sub-Category Detail Notes Category Not es General Examination GENERAL APPEARANCE: alert, w ell hydrated, in no distress HEAD: normocephalic HEART: regular rate and rhy thm, no murmurs, rubs, gallops LUNGS: no wheezes, rales, r honchi, good air movement, clear to auscultation bilaterally SKIN: good turgor
--- OUTSIDE RECORDS SUMMARY | 2024-12-30 02:30 | XMS_ITS ---
Author Organization Marcos Newman MD Address [address] [place] [phone] Care Team Providers Care Equip Tech Name Role Phone Marcos Newman Primary Care Provider Results Component Value Reference Range Notes PSA,Total (Free>4and<10) Reviewed date:03/13/2025 01:01:27 PM Interpretation:03-12-25 Performing Lab:[facility], [address] [place] [phone] Notes/Report: PSA,Total (Free>4and<10) 3.62 0.00-4.00 ng/mL A Free PSA was not [...] Provider Diagnosis Marcos Newman MD [address] [place] [phone] 12/30/2024 Marcos Newman Elevated PSA R97.20 Assessments Encounter Date Diagnosis (ICD Code) Assessment Notes Treatment Notes Treatment Clinical Notes Section Notes 12/30/2024 Elevated PSA (ICD-10 - R97.20) Plan Of Treatment Next Appt Details Provider Name:Marcos Marroquin ier, 06/16/2025 11:00:00 AM, [address], [address], [place], [place], [phone], Provider Name:Marcos Marroquin saer, 09/17/2025 07:00:00 AM, [address], [address], [place], [place], [phone], Provider Name:Marcos Marroquin ier, 09/24/2025 08:00:00 AM, [address], [address], [place], [phone], Progress Notes * Beka BERNABE TDOB: [birth year] (60 yo M)Acc No.[id number]:12/30/2024 Progress Note Patient: Beka ELLIS Provider: Jono Newman MD :1965 A ge:59 Y S ex:Male Date:12/30/2024 Address:[address] [place] [address], [place] Subjective: * Chief Complaints: * 1 . [...] * Provider: Jono Newman MD Date: 0 12/30/2024 Generated for Carter taylor/Elaine/eTransmitting on: 08/12/2024 10:39 AM EST
--- OUTSIDE RECORDS SUMMARY | 2025-03-12 02:30 | XMS_ITS ---
Author Organization Marcos Newman MD Address [address] [place] [phone] Care Team Providers Care Director Sales Support Name Role Phone Marcos Newman Primary Care Provider [phone] Allergies No Known Allergies Results Component Value Reference Range Notes PSA,Total (Free>4and<10) Reviewed date:03/12/2025 12:47:38 PM Interpretation: Performing Lab:[facility], [address] [place] [phone] Notes/Report: PSA,Total (Free>4and<10) 3.93 0.00-4.00 ng/mL A Free PSA was not [...] Hawkins Alinity i Chemiluminescent Microparticle Immunoassay (CMIA) Reason For Referral Reason needs sleep study Diagnosis 1 KALINA (obstructive sle ep apnea) (G47.33) Referral Organization Marcos Newman MD Referring Provider First Name Marcos Referring Provider Last Name Trent Referring Provider Speciality Internal M edicine Referred Provider Emilia Alexander Referred Provider Specialty Neurology General Notes Lea Gomez 0 03/12/2025 07:57:47 AM >referral info faxed, Lea Gomez 03/20/2025 11:17:46 AM >was told patient is aware of appt Referral Priority Routine Referral Appointment Date 03/25/2025 REASON FOR VISIT 6 MO F/U/must see PSA Medications Medication SIG (Take, Route, Frequency, Duration) Notes Start Date End Date Status Nitrofurantoin Macrocrystal 100 MG 1 capsule at bedtime with food or milk Orally Once a day for 10 day(s) Not-Taking Pyridium 100 MG 1 tablet after meals Orally Three times a day for 3 days 08/07/2024 Not-Taking Valsartan 160 MG 1 tablet Orally Once a day 06/05/2024 Active Indomethacin 50 MG 1 capsule with food Orally Three times a day for 10 days 11/12/2014 Not-Taking Problems Problem Type SNOMED Code ICD Code Onset Dates Problem Status W/U Status Risk Notes Problem Obese class II (750434976525 105) BMI 39.0-39.9,a dult (Z68.39) Active confirmed Vital Signs Blood pressure systolic 122 mm Hg 03/12/20 25 Blood pressure diastolic 88 mm Hg 025 Height 67.5 in 03/12/2025 Weight 258 lbs 03/12/2025 BMI 39.81 kg/m2 03/12/2025 weight is down 4 pounds [facility] e 12-04-24 Encounters Encounter Location Date Provider Diagnosis Marcos Newman MD [address] [place] [address] [place] [phone] 03/12/2025 Marcos Newman Elevated PSA R97.20 ; BMI 39.0-39.9,adult Z68.39 and KALINA (obstructive sleep apnea) G47.33 Assessments Encounter Date Diagnosis (ICD Code) Assessment Notes Treatment Notes Treatment Clinical Notes Section Notes 03/12/2025 Elevated PSA (ICD-10 - R97.20) has decreased from when he had the prostate infection. will recheck 03/12/2025 BMI 39.0-39.9,adult (ICD-10 - Z68.39) discussed diet 03/12/2025 KALINA (obstructive sleep apnea) (ICD-10 - G47.33) needs referral to [facility] [place] Plan Of Treatment Treatment Notes Assessment Notes Elevated PSA has decreased from w hen he had the prostate infection. will recheck BMI 39.0-39.9,adult discussed diet KALINA (obstructive sleep apnea) needs refe rral to [facility] [place] Pending Test Test Name Order Date PSA,Total (Free>4and<10) 03/12/2025 Referrals Referral Date Details 03/12/2025 03/12/2025, needs eep study, Emilia Alexander Next Appt Details Follow Up: 3 Months, Reason: Provider Name:Marcos Marroquin ier, 06/16/2025 11:00:00 AM, [address], [address], [place], [place], [phone], Provider Name:Marcos Marroquin ier, 09/17/2025 07:00:00 AM, [address], [address], [place], [place], [phone], Provider Name:Marcos Marroquin ier, 09/24/2025 08:00:00 AM, [address] [facility], [address], [place], [place], [phone], Progress Notes * Beka BERNABE TDOB: [birth year] (60 yo M)Acc No.[id number]:03/12/2025 Progress Notes Patient: Beka ELLIS Provider: Jono Newman MD :1965 A ge:60 Y S ex:Male Date:03/12/2025 Address:[address] [place] [address] [id number] Subjective: * Chief Complaints: * 6 MO F/U/must see PSA * HPI: S ymptom(s): patient is a 60 yo male here for 6 month follow up and discussion of recent PSA. * ROS: G eneral/Constitutional: Denies C hills. D enies F atigue. D enies F ever. D enies H eadache. E NT: Denies S ore throat. R espiratory: Denies C ough. D enies S hortness of breath at rest. D enies S hortness of breath with exertion. G astrointestinal: Denies D iarrhea. D enies [...] Objective: * Vitals: H t: 67.5, Wt: 258, BMI:39.81, BP:122/88, Wt-k.03. weight is down 4 pounds since 12-04-24. * Examination: G eneral Examination: GENERAL APPEARANCE: a lert, well hydrated, in no distress.? HEAD: n ormocephalic. HEART: n o murmurs, rubs, gallops, regular rate and rhythm.? LUNGS: n o wheezes, rales, rhonchi, good air movement, clear to auscultation bilaterally. Assessment: * Assessment: 1. E levated PSA - R97.20 (Primary) 2 . B TX 39.0-39.9,adult - Z68.39 ? 3 . O SA (obstructive sleep apnea) - G47.33 Plan: * Treatment: 2. B TX 39.0-39.9,adult Notes: discussed diet 3. O SA (obstructive sleep apnea) Notes: needs referral to [facility] [place] ? Referral To:Emilia Alexander Neurology Reason:needs sleep study * Procedure Codes: 3 6415 VENIPUNCT, ROUTINE* * Follow Up: 3 Months * * Sign off status: Completed true * Provider: Jono Newman MD Date: 0 03/12/2025 Generated for Carter taylor/Elaine/eTransmitting on: 1 08/12/2024 10:40 AM EST History and Physical Notes * HPI (History of Present Illness) Category Sub-Category Detail Notes Category Not es Symptom(s) patient is a 60 yo male here for 6 month follow up and discussion of recent PSA Examination Category Sub-Category Detail Notes Category Not es General Examination GENERAL APPEARANCE: alert, w ell hydrated, in no distress HEAD: normocephalic HEART: no murmurs, rubs, ga llops, regular rate and rhythm LUNGS: no wheezes, rales, r honchi, good air movement, clear to auscultation bilaterally Consultation Request Notes Referral Date Referring Provider Referred Provider Not es 03/12/2025 Marcos Newman Rani needs slee p study
--- OUTSIDE RECORDS SUMMARY | 2025-06-12 02:22 | XMS_ITS ---
Author Organization Marcos Newman MD Address [address] [place] [phone] Care Team Providers Care Personal Health Coach Name Role Phone Marcos Newman Primary Care Provider REASON FOR VISIT rf Indomethacin Medications Medication SIG (Take, Route, Fr equency, Duration) Notes Start Date End Date Status Indomethacin 50 MG 1 capsule with food Orally Three times a day for 10 days 11/12/2014 Active Encounters Encounter Location Date Provider Diagnosis Marcos Newman MD [address] [place] [address] [place] [phone] 06/12/2025 Marcos Newman Gout attack 274.01 Assessments Encounter Date Diagnosis (ICD Code) Assessment Notes Treatment Notes Treatment Clinical Notes Section Notes 06/12/2025 Gout attack (ICD9-CM - 274.01) Plan Of Treatment Medication Medication Name Sig Start Date Stop Date Notes Indomethacin 50 MG 1 capsule with food Orally Three times a day for 10 days 11/12/2014 Next Appt Details Provider Name:Marcos bella, 06/16/2025 11:00:00 AM, [address] [place] [address], [address], [phone], Provider Name:Marcos bella, 09/17/2025 07:00:00 AM, [address] [place] [address], [address], [phone], Provider Name:Marcos bella, 09/24/2025 08:00:00 AM, [address] [place] [address], [address], [phone], Progress Notes * Beka BERNABE TDOB: [birth year] (60 yo M)Acc No.[id number]:06/12/2025 Patient: Beka ELLIS :1965 A ge:60 Y S ex:Male Address:[address] [place] [address] , [place] [address] * Refills Refill Indomethacin Capsule, 50 MG, Orally, 30, 1 capsule with food, Three times a day, 10 days, Refills=2 * * Date:
--- OUTSIDE RECORDS SUMMARY | 2025-06-12 03:00 | XMS_ITS ---
Author Organization Marcos Newman MD Address [address] [place] [phone] Care Team Providers Care Sales Office Administrator Name Role Phone Marcos Newman Primary Care Provider REASON FOR VISIT PSA Encounters Encounter Location Date Provider Diagnosis Marcos Newman MD [address] [place] [address] [place] [phone] 06/12/2025 Marcos Newman Elevated PSA R97.20 Assessments Encounter Date Diagnosis (ICD Code) Assessment Notes Treatment Notes Treatment Clinical Notes Section Notes 06/12/2025 Elevated PSA (ICD-10 - R97.20) Plan Of Treatment Pending Test Test Name Order Date PSA,Total (Free>4and<10) 06/12/2025 Next Appt Details Provider Name:Marcos bella, 06/16/2025 11:00:00 AM, [address] [place] [address], [address], [phone], Provider Name:Marcos bella, 09/17/2025 07:00:00 AM, [address] [place] [address], [address], [phone], Provider Name:Marcos Marroquin ier, 09/24/2025 08:00:00 AM, [address] [place] [address], [address], [phone], Progress Notes * Beka BERNABE TDOB: [birth year] (60 yo M)Acc No.[id number]:06/12/2025 Progress Note Patient: Beka ELLIS Provider: Jono Newman MD :1965 A ge:60 Y S ex:Male Date:06/12/2025 Address:[address] [place] [address] [place], [id number] Subjective: * Chief Complaints: * 1 . PSA. * Medical History: Objective: * Vitals: Assessment: * Assessment: 1. E levated PSA - R97.20 Plan: * Treatment: * Procedure Codes: 3 6415 VENIPUNCT, ROUTINE* * * The named appointment provid er may or may not be the originator of this progress note, and it is not deemed complete until electronically signed by the appointment provider. Sign off status: Pending * Provider: Jono Newman MD Date: 08/12/2024 Generated for Carter taylor/Elaine/Prabhakaritting on: 08/12/2024 10:39 AM EST
--- OUTSIDE RECORDS SUMMARY | 2025-06-12 10:41 | XMS_ITS | Clinical Summary ---
Author Organization [facility] Address [address] [place] [address] Phone Care Team Providers Care Bench Boring Machine Operator Name Role Phone Marcos Newman MD Primary [...] LEVEL 01/27/2024 01/26/2023 POTASSIUM LEVEL 01/27/2024 01/26/2023 INFLUENZA VACCINE (#1) 2025 2, 04/19/2021, 06/01/2020, Additional history exists COVID-19 VACCINE (3 - season) 2025 09/17/2020, 08/15/2020 SCREENING FOR DIABETES 01/26/2026 01/26/2023 Adult Td,Tdap Booster 06/04/2028 06/04/2018 , 02/26/2008, 01/13/2006, Additional history exists RSV VACCINE (1 - 1-dose 75+ series) 2041 HEPATITIS A VACCINES Aged Out 05/08/1998, 08/15/18 [...] Date/Time Associated Diagnosis Comments BASIC METABOLIC PANEL (BMP) STAT 01/26/2023 12:43 PM EDT from Last 3 Months or Most Recently Relevant to Health Maintenance Results * (ABNORMAL) Basic metabolic panel (01/26/2023 12:43 PM EDT) SODIUM 137 133 - 146 mmol/L [facility] CHLORIDE 102 96 - 108 mmol/L [facility] POTASSIUM 4.2 3.3 - 5.1 mmol/L [facility] CO2 25 21 - 35 mmol/L [facility] BUN 15 6 - 19 mg/dL [facility] CREATININE 1.00 0.5 - 1.5 mg/dL [facility] GLUCOSE 107(H) 70 - 99 mg/dL [facility] CALCIUM 9.1 8.4 - 10.3 mg/dL [facility] EGFR 88 >59 mL/min/1.7 3m2 [facility] Comment:Estimated glomerular filtration rate calculated using the CKD-EPI refit equation. ANION GAP 14 10 - 20 mmol/L [facility] Blood 01/26/2023 12:4 3 PM EDT 01/26/2023 1:03 PM EDT us Staci Meeks DO LAB BLOOD BKR ORDERABLES Fin al Result [facility] [address] [place] [address] from Last 3 Months or Most Recently Relevant to Health Maintenance [place] [address] [place] [address] CROSS OUT OF STATE PPO BLUE [employer] OUT OF [facility] [place] [address] [place] [address] CROSS OUT OF STATE PPO BLUE [place] [address] [place] [address] CROSS OUT OF [facility] PPO BLUE CROSS OUT OF STATE PPO Care Teams Bench Boring Machine Operator Relationship Specialty Start Date End Date Marcos Newman MD [address] [place] [address] [place] [address] PCP - General Internal Medicine 01/26/23 Additional Source Comments The information contained in this document represents components of the legal health record. It is not the complete legal health record.[facility]
--- OUTSIDE RECORDS SUMMARY | 2025-06-12 10:41 | XMS_ITS | Patient Health Record ---
[facility] Organization [facility] Address [address] [place] [address] Care Team Providers Care Nephrology Social Worker Name Role Phone Trent GIPSON, Marcos Primary Care Provider Xin Cruz Unavailable [phone] Reason For Referral No Information Medications Medication [...] Notes Problem Cellulitis and abscess of toe (365149145) Celluitis - Toes (681.10) Active confirmed Problem Pain in limb (60072679) Pain in Limb (729.5) Active confirmed Problem Paronychia (07329408) Paronychia (681.11) Active confirmed Plan Of Treatment Pending Test Test Name Order Date 40753- Debride <25 sq cm 05/08/2012 04160 I&D ABSCESS- SIMPLE,SINGLE 012 Insurance Providers Payer Name Payer Address Payer Phone Subscriber Number Group Number Insured Name Patient Relationship to Insured Coverage Start Date Coverage End Date [employer] [address] [place] [address] [phone] [id number] Beka Bernabe Self - patient is the insured Medical (General) History Medical History History ICD Code high blood pressure chicken pox Surgical History Surgery Date(Month/Year) hernia x2
--- OUTSIDE RECORDS SUMMARY | 2025-06-12 10:41 | XMS_ITS | Patient Health Record ---
Author Organization [facility] Address [address] [place] [address] Care Team Providers Care General Manager [employer] Name Role Phone Marcos Newman MD Primary Care Provider Herman Contreras Unavailable [phone] Allergies No Known Allergies Reason For Referral No Information Medications Medication SIG (Take, Route, Fr equency, Duration) Notes Start Date End Date Status Multivitamin Active Lisinopril 10 MG Tablet Orally Active Immunizations Vaccine Route Administration Date Status Comme nts Influenza Unknown 04/24/2021 Administered Social History Social History Additional Details Category Social Info Options Details Miscellaneous: Exercise: Runner/works out Marital status: 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 Section Notes: Nonsmoker; no sig alcohol Nonsmoker; no sig alcohol Problems Problem Type SNOMED Code ICD Code Onset Dates Problem Status W/U Status Risk Notes Problem Screening for malignant neoplasm of colon (815227319) Encounter for screening for malignant neoplasm of colon (Z12.11) Active confirmed Problem History of adenomatous polyp of colon (402709623) History of adenomatous polyp of colon (Z86.010) Active confirmed Problem Pre-procedure evaluation check (035096166) Encounter for other preprocedural examination (Z01.818) Active confirmed Problem Screening for malignant neoplasm of rectum (936493036) Encounter for screening for malignant neoplasm of rectum (Z12.12) Active confirmed Problem Preprocedural examination (658404489945892) Preprocedural examination (Z01.818) Active confirmed Problem History of polyp of colon (situation) (759863848) History of colon polyps (Z86.010) Active confirmed Problem Diverticulosis of colon (465191160) Diverticulosis of colon (K57.30) Active confirmed Plan Of Treatment Future Test Test Name Order Date COLONOSCOPY 06/08/2016 COLONOSCOPY 01/11/2022 Insurance Providers Payer Name Payer Address Payer Phone Subscriber Number Group Number Insured Name Patient Relationship to Insured Coverage Start Date Coverage End Date [facility] [address] [place], [place] [id number] BRIANNA NAYAK Self - patient is the insured Medical (General) History Medical History History ICD Code Hypertension Denies [place],DM,CVA,Lung disease,renal dise ase COVID positive x 2 in 07/2019 and 11/2021 Colonoscopy 08/2016 1.5cm tubular adenoma removed Surgical History Surgery Date(Month/Year) Umbilical hernia repair x 2
--- OUTSIDE RECORDS SUMMARY | 2025-06-12 10:41 | XMS_ITS | Patient Health Record ---
Author Organization Marcos Newman MD Address [address] [place], [place] [id number] Care Team Providers Care Assistant Distribution Manager Name Role Phone Marcos Newman Primary Care Provider Allergies No Known Allergies Results Component Value Reference Range Notes Urine Culture Reviewed date:08/29/2024 12:30:47 PM Interpretation: Performing Lab:[facility], [address] [place] [phone] Notes/Report: Urine Culture No growth. Complete Blood Count Auto Di ff Reviewed date:09/12/2024 04:29:43 PM Interpretation: Performing Lab:[facility], [address] [place] [phone] Notes/Report: White Blood Count 8.0 4.8-10.8 X10*3/uL [...] NRBC Abs Auto 0.000 0.0-0.012 X10*3/uL Comprehensive [place]. Panel Fa Reviewed date:09/12/2024 04:37:04 PM Interpretation: Performing Lab:[facility], [address] [place] [phone] Notes/Report: Sodium 141 135-145 mmol/L Potassium 4.1 [...] Panel Reviewed date:09/11/2024 12:46:50 PM Interpretation: Performing Lab:[facility], [address] [place] [phone] Notes/Report: Triglycerides 157 <150 mg/dL Desirable Triglyceride: [...] Reviewed date:09/18/2024 09:28:51 AM Interpretation:JASIEL PSA09/18/24 Performing Lab:[address] [phone] Notes/Report: PSA,Total (Free>4and<10) 6.76 0.00-4.00 ng/mL PSA methodology: Hawkins Alinity i Chemiluminescent Microparticle Immunoassay (CMIA) UA ClnCatch+Micro w/rflx Cul t Reviewed date:09/12/2024 04:30:59 PM Interpretation: Performing Lab:[address] [phone] Notes/Report: Urine, Clean Catch Color Urine Yellow Appearance Urine Clear PH 5.5 5.0-9.0 Glucose Urine UA Negative Negative mg/dL Urine Blood Negative Negative Specific [place] - Urine 1.025 1.005-1.025 Urine Protein Negative [...] date:10/16/2024 09:14:12 AM Interpretation:jasiel 10/16 psa Performing Lab:[address] [place] [address] Notes/Report: Prostate Specific Ag Total 4.8 < [...] 30 93 9 (3)Catalona et al.:TRAE 277: 9525-6008 (1996) (4)Catalona et al.:TRAE 279: 2382-2025 (1997) (x)These estimates vary with age, ethnicity, [...] of disease. THIS TEST WAS PERFORMED AT: [facility] [address] [place] [phone] RONY HOWE MD Free Prostate Spec Ag 0.6 PSA,Total (Free>4and<10) Reviewed date:12/04/2024 08:54:57 AM Interpretation:12-04-2024 Performing Lab:[facility], [address] [place] [phone] Notes/Report: PSA,Total (Free>4and<10) 3.56 0.00-4.00 ng/mL A [...] 4.0 and 10.0 ng/mL. PSA methodology: Hawkins VirtualUnity i Chemiluminescent Microparticle Immunoassay (CMIA) PSA,Total (Free>4and<10) Reviewed date:03/13/2025 01:01:27 PM Interpretation:03-12-25 Performing Lab:[address] [address] Notes/Report: PSA,Total (Free>4and<10) 3.62 0.00-4.00 ng/mL A [...] Microscopic Reviewed date:10/18/2024 09:31:32 AM Interpretation: Performing Lab:[address] [address] Notes/Report: Color Urine Yellow Appearance Urine Clear PH 5.0 5.0-9.0 Glucose Urine UA Negative Negative mg/dL Urine Blood Negative Negative Specific [place] - Urine 1.020 1.005-1.025 Urine Protein Negative Neg-Trace mg/dL Urine Ketones Negative Negative mg/dL Nitrite Urine Negative Negative Leukocyte Esterase Urine Negative Negative RBC Urine 0-2 0-2 /HPF WBC Urine 0-5 0-5 /HPF Squamous Epithelial Cell Urine 0-2 0-2 /HPF Bacteria Urine None Seen None Seen Hyaline Casts Urine 0-2 0-2 /LPF Urine Culture Reviewed date:10/18/2024 09:31:10 AM Interpretation: Performing Lab:[address] [phone] Notes/Report: Urine Culture Report Result Urine Culture < 10,000 cfu/ml PSA,Total (Free>4and<10) Reviewed date:03/12/2025 12:47:38 PM Interpretation: Performing Lab:[address] [phone] Notes/Report: PSA,Total (Free>4and<10) 3.93 0.00-4.00 ng/mL A [...] Pathology Reviewed date:07/22/2024 04:36:46 PM Interpretation: Performing Lab:[address] [phone] Notes/Report: -- ---- Name: Beka Bernabe Jr Age/Sex: 59/M : 1965 Unit#: [id number] Attend Dr: Scotty De La Torre MD Re07/18/24 Status : [facility] Location: [facility] Disch: -- ---- SPEC : [id number] RECD : 07/18/24-142 STATUS: BRANDY HAMLIN NUM: [id number] ARTURO: 07/18/[address]: Scotty De La Torre MD ENTERED: 07/18/24- SP TYPE: Surgical OTHR [...] No fleshy or necrotic foci are identified. Site Operations Manager sections are submitted in cassettes [id number]. CEDS Copies To: Marcos Newman MD [facility] [address] [place], [place] [id number] Scotty De La Torre MD [facility] [address] [place] [address] [email or web address] [employer] CONTINUED ON NEXT PAGE -- ---- Name: Beka Bernabe Jr Age/Sex: 59/M : 1965 Unit#: [id number] Attend Dr: Scotty De La Torre MD Re07/18/24 Status : [facility] Location: [facility] Disch: -- ---- SPEC : [id number] RECD : 07/18/24 STATUS: BRANDY BOUBACAR NUM: [id number] ARTURO: 07/18/24-1332 [facility] DR: Scotty De La Torre MD ENTERED: 07/18/24- 23 SP TYPE: Surgical OTHR DR: Marcos Newman MD ORDERED: Sheryl Micro L3 -- ---- Signed (signature on file) Kalie [place] 07/21/24 1234 -- ---- END OF REPORT Urinalysis Reviewed date:08/28/2024 01:02:26 PM Interpretation: Performing Lab:[facility], [address] [place] [phone] Notes/Report: Color Urine Yellow Appearance Urine Clear PH 5.5 5.0-9.0 Glucose Urine UA Negative Negative mg/dL Urine Blood Negative Negative Specific [place] - Urine 1.020 1.005-1.025 Urine Protein Negative Neg-Trace mg/dL Urine Ketones Negative Negative mg/dL Nitrite Urine Negative Negative Leukocyte Esterase Urine Negative Negative PSA Free and Total Reviewed date:09/12/2024 04:26:56 PM Interpretation: Performing Lab:[address] [phone] Notes/Report: Prostate Specific Ag Total 6.3 < [...] 30 93 9 (3)Catalona et al.:TRAE 277: 2529-9197 (1996) (4)Catalona et al.:TRAE 279: 4187-8018 (1997) (x)These estimates vary with age, ethnicity, [...] mind. PSA was performed using the Francis [place] Immunoassay method. Values obtained from different assay methods cannot be used interchangeably. PSA levels, regardless of value, should not be interpreted as absolute evidence of the presence or absence of disease. THIS TEST WAS PERFORMED AT: [facility] [address] [place] [phone] RONY HOWE MD Free Prostate Spec Ag 0.6 Reason For Referral Reason UTI Diagnosis 1 [...] Referring Provider Speciality Internal edicine Referred Provider Emilia Alexander Referred Provider Specialty Neurology General Notes Lea Gomez 0 03/12/2025 07:57:47 AM >referral info faxJason jordan Annette 03/20/2025 11:17:46 AM >was told patient [...] a day for 10 days 11/12/2014 Active Immunizations Vaccine Route Administration Date Status Comme nts Flu Vaccine Unknown 05/12/2012 Administered Flu Vaccine Unknown 04/28/2014 Administered Dayana Flu Vaccine Unknown 04/22/2015 Administered [employer] Flu Vaccine Unknown 04/22/2016 Administered Given at wo rk. Fluarix Quadrivalent Unknown 04/28/2017 Administered At work Fluarix Quadrivalent IM Intramuscular 05/14/2018 Administjean paul red Fluarix Quadrivalent Unknown 04/25/2019 Administered at [...] Problem Status W/U Status Risk Notes Problem 135806847 Tubular adenoma (D36.9) Active confirmed Problem 039383764 Body mass index (BMI) 35.0-35.9, adult (Z68.35) Active confirmed Problem 12906663 Essential hypertension (I10) Active confirmed Problem 621391303 Low HDL (under 40) (E78.6) Active confirmed Problem 705173288 Non morbid obesity due to excess calories (E66.09) Active confirmed Problem 83624416 KALINA (obstructive sleep apnea) (G47.33) Active confirmed Problem Obese class II (1469810392628 05) BMI 39.0-39.9,adult (Z68.39) Active confirmed Problem 836978306 BMI 36.0-36.9,adult (Z68.36) Active confirmed Problem 541150817 Acute constipation (K59.00) Active confirmed Vital Signs [...] Marcos Newman MD [address] [place] [id number] 08/28/2024 Marcos Newman Acute constipation K59.00 Marcos Newman MD [address] [place] [id number] 09/11/2024 Marcos Newman Blood tests for routine general physical examination Z00.00 ; Essential hypertension I10 and Low HDL (under 40) E78.6 Marcos Newman MD [address] [place] [id number] 10/09/2024 Marcos Newman Rising PSA level R97.20 and Elevated PSA R97.20 Marcos Newman MD [address] [place] [id number] 11/06/2024 Marcos Newman Elevated PSA R97.20 Marcos Newman MD [address] [place] [id number] 12/30/2024 Marcos Newman Elevated PSA R97.20 Marcos Newman MD [address] [place] [id number] 06/12/2025 Marcos Newman Elevated PSA R97.20 Marcos Newman MD [address] [place] [id number] 08/07/2024 Marcos Newman Acute constipation K59.00 and Acute UTI N39.0 Marcos Newman MD [address] [place] [id number] 09/18/2024 Marcos Newman Prediabetes R73.09 ; Annual physical exam Z00.00 ; Elevated PSA R97.20 ; Essential hypertension I10 ; Low HDL (under 40) E78.6 ; Colon cancer screening Z12.11 and Depression screening Z13.31 Marcos Newman MD [address] [id number] 10/16/2024 Marcos Newman Elevated PSA R97.20 and Hematuria R31.9 Marcos Newman MD [address] [place] [address] [id number] 12/04/2024 Marcos Newman Elevated PSA R97.20 and Essential hypertension I10 Marcos Newman MD [address] [place] [id number] 03/12/2025 Marcos Newman Elevated PSA R97.20 ; BMI 39.0-39.9,adult Z68.39 and KALINA (obstructive sleep apnea) G47.33 Marcos Newman MD [address] [place] [address] [id number] 06/12/2025 Marcos Newman Gout attack 274.01 Marcos Newman MD [address] [place] [address] [id number] 08/12/2024 Marcos Newman Assessments Encounter Date Diagnosis (ICD Code) Assessment Notes Treatment Notes Treatment Clinical Notes Section Notes 08/28/2024 Acute constipation (ICD-10 - K59.00) 09/11/2024 Blood tests for routine general physical examination (ICD-10 - Z00.00) 10/09/2024 Rising PSA level (ICD-10 - R97.20) 10/09/2024 Elevated PSA (ICD-10 - R97.20) 11/06/2024 Elevated PSA (ICD-10 - R97.20) 12/30/2024 Elevated PSA (ICD-10 - R97.20) 06/12/2025 Elevated PSA (ICD-10 - R97.20) 08/07/2024 Acute constipation (ICD-10 - K59.00) will [...] BMI 39.0-39.9,adult (ICD-10 - Z68.39) discussed diet 06/12/2025 Gout attack (ICD9-CM - 274.01) 09/11/2024 Essential hypertension (ICD-10 - I10) 09/18/2024 Elevated PSA (ICD-10 - R97.20) had just had a severe uti and hopefully related to that, will continue to monitor 12/04/2024 Essential hypertension (ICD-10 - I10) had been on vacation and ran out of meds, will continue current regiment 03/12/2025 KALINA (obstructive sleep apnea) (ICD-10 - G47.33) needs referral to [facility] sleep medicine 09/11/2024 Low HDL (under 40) (ICD-10 - E78.6) 09/18/2024 Essential hypertension (ICD-10 - I10) stable, will continue current regiment 09/18/2024 Low HDL (under 40) (ICD-10 - E78.6) stable, will continue current regiment 09/18/2024 Colon cancer screening (ICD-10 - Z12.11) guaiac negative 09/18/2024 Depression screening (ICD-10 - Z13.31) negative screen Plan Of Treatment Pending Test Test Name Order Date Electrocardiogram (EKG) 02/26/2017 Electrocardiogram (EKG) 08/21/2019 Occult Blood, Stool, Guaiac 09/18/2024 PSA,Total (Free>4and<10) 06/12/2025 Next Appt Details Provider Name:Marcos Marroquin ier, 06/16/2025 11:00:00 AM, [address] [place] [address], Suite [facility], [place], [place], [phone], Provider Name:Marcos Marroquin ier, 09/17/2025 07:00:00 AM, [address] [place] [address], Suite [facility], [place], [place], [phone], Provider Name:Marcos Marroquin ier, 09/24/2025 08:00:00 AM, [address] [place] [address], [place] [address], [place], [place], [phone], Insurance Providers Payer Name Payer Address Payer Phone Subscriber Number Group Number Insured Name Patient Relationship to Insured Coverage Start Date Coverage End Date [facility] AND [facility] [address] [place], [place] [id number] Beka Bernabe Self - patient is the insured Medical (General) History Medical History History ICD Code Colonoscopy 08/30/16 w/Dr. Lyman ss - repeat 5 years Tubular adenoma colonoscopy 03/13. due in 5 years
[2025-06-12 11:31] LABS: PSA,Total (Free>4and<10) 2.74 ng/mL (0.00-4.00)
== END 2025-06-12 10:04 | disposition home or self-care (01) ==
LOC: HO.LNP 10:03
PROVIDERS: Visit Provider Internal Medicine
DX: Z12.5 Encounter for screening for malignant neoplasm of prostate (principal); R97.20 Elevated prostate specific antigen [PSA]
CPT/HCPCS: 84153

== ENCOUNTER → 2025-06-17 11:07 | Outpatient (REF) | payer BC, SELFPAY ==
--- OUTSIDE RECORDS SUMMARY | 2025-06-17 13:53 | XMS_ITS | Clinical Summary ---
Author Organization [facility] Address [address] [place] [address] Phone Care Team Providers Care Transaction Coordinator Name Role Phone Marcos Newman MD Primary [...] EDT) SODIUM 137 133 - 146 mmol/L [facility] CHLORIDE 102 96 - 108 mmol/L [facility] POTASSIUM 4.2 3.3 - 5.1 mmol/L [facility] CO2 25 21 - 35 mmol/L [facility] BUN 15 6 - 19 mg/dL [facility] CREATININE 1.00 0.5 - 1.5 mg/dL [facility] GLUCOSE 107(H) 70 - 99 mg/dL [facility] CALCIUM 9.1 8.4 - 10.3 mg/dL [facility] EGFR 88 >59 mL/min/1.7 3m2 [facility] Comment:Estimated glomerular filtration rate calculated using the CKD-EPI refit equation. ANION GAP 14 10 - 20 mmol/L [facility] Blood 01/26/2023 12:4 3 PM EDT 01/26/2023 1:03 PM EDT us Staci Meeks DO LAB BLOOD BKR ORDERABLES Fin al Result [facility] [address] [place] [address] from Last 3 Months or Most Recently Relevant to Health Maintenance [place] [address] [place] [address] CROSS OUT OF STATE PPO [facility] [facility] OUT OF [facility] [place] [address] [place] [address] [employer] OUT [place] STATE PPO [employer] [place] [address] [place] [address] [place] OUT OF [facility] PPO [employer]UE [employer] OUT OF STATE PPO Care Teams Transaction Coordinator Relationship Specialty Start Date End Date Marcos Newman MD [address] [place] [address] [place] [address] PCP - General Internal Medicine 01/26/23 Additional Source Comments The information contained in this document represents components of the legal health record. It is not the complete legal health record.[facility]
== END ==
LOC: HO.SL 11:07
PROVIDERS: PCP Internal Medicine; Visit Provider Physician Assistant Medical
DX: G47.19 Other hypersomnia (principal); R53.82 Chronic fatigue, unspecified
CPT/HCPCS: 95806

== ENCOUNTER → 2025-06-22 11:14 | Outpatient (BNV) | payer BC, SELFPAY | PROVIDERS: PCP Internal Medicine; Visit Provider Psychiatry & Neurology Neurology | DX: G47.33 Obstructive sleep apnea (adult) (pediatric) (principal); G47.19 Other hypersomnia | CPT/HCPCS: 95806 ==